=== PATIENT | male | born 1940 | race Caucasian/White ===

== ENCOUNTER 2017-08-16 13:30 | Inpatient (IN) | payer MEDICARE, OTHER ==
[2017-08-16 14:06] LABS: #Eosinphils 0.2 thou/uL (0.0-0.7); #Lymphocytes 1.4 thou/uL (1.20-3.40); #Monocytes 0.4 thou/uL (0.11-0.59); #Neutrophils 4.4 thou/uL (1.40-6.50); %Basophils 0.6 % (0.0-1.0); %Eosinophils 2.4 % (0.0-10.0); %Lymphocytes 22.5 % (21.0-51.0); %Monocytes 6.2 % (0.0-10.0); %Neutrophils 68.3 % (42.0-75.0); Hemoglobin 12.6 g/dL (14.0-18.0); Mean Corpuscular HGB CONC 33.5 g/dL (32.0-36.0); Mean Corpuscular Hemoglobin 30.9 pg (27.0-31.0); Platelet Count 165 thou/uL (130-400); RBC Distribution Width 12.1 % (11.5-14.5); Red Blood Cell (RBC) Count 4.08 mill/uL (4.70-6.10); White Blood Cell (WBC) Count 6.4 thou/uL (4.8-10.8)
--- NOTE | 2017-08-16 14:15 | RAD ---
AP VIEW CHEST: INDICATIONS: Chest pain. COMPARISON: None. FINDINGS: There is slight elevation of the right hemidiaphragm. The lungs are clear. No pleural effusion or p neumothorax is evident. The cardiomediastinal silhouette is normal. No acute osseous abnormality is evident. IMPRESSION: No acute cardiopulmonary abnormality. POS: [facility]
[2017-08-16 14:29] LABS: ALT (SGPT) 20 U/L (8-55); AST (SGOT) 27 U/L (5-34); Albumin 4.2 g/dL (3.4-4.8); Alkaline Phosphatase 59 U/L (40-150); Anion Gap 15 mmol/L (10-20); BUN (Urea Nitrogen) 18 mg/dL (8.4-25.7); Bilirubin, Total 0.7 mg/dL (0.2-1.2); CK (CPK) 374 U/L (30-200); Calc. Creatinine Clearance 0 mL/min (70-130); Calcium 10.3 mg/dL (7.8-10.44); Carbon Dioxide 22 mmol/L (23-31); Chloride 105 mmol/L (98-107); Estimated GFR-MDRD 67; Globulin 3.2 g/dL (2.4-3.5); Glucose 82 mg/dL (83-110); Potassium 3.7 mmol/L (3.5-5.1); Protein, Total 7.4 g/dL (5.8-8.1); Sodium 138 mmol/L (136-145)
[2017-08-16 14:33] LABS: CKMB 5.5 ng/mL (0-6.6); Troponin I 0.078 ng/mL (< 0.028)
[2017-08-16] MEDS ORDERED: Nitroglycerin 0.4 MG TAB (25 Tab Bottle) ONE (15:06)
[2017-08-16] MEDS ORDERED: Morphine 2 MG/ML SYRINGE ONE (15:55)
[2017-08-16] MEDS ORDERED: Lorazepam 2 MG/ML VIAL ONE (15:55)
[2017-08-16 18:04] LABS: Troponin I 0.405 ng/mL (< 0.028)
[2017-08-16] MEDS ORDERED: Enoxaparin Sodium 80 MG/0.8 ML SYRINGE ONE (18:41)
[2017-08-16] MEDS ORDERED: Ondansetron HCl/PF 4 MG/2 ML Vial IVP PRN (19:35)
[2017-08-16] MEDS ORDERED: hydrALAZINE 20 MG/ML VIAL SLOW IVP PRN (19:35)
[2017-08-16] MEDS ORDERED: Lorazepam 1 MG TAB PO PRN (19:35)
[2017-08-16] MEDS ORDERED: Zolpidem Tartrate 5 MG TAB PO PRN (19:35)
[2017-08-16] MEDS ORDERED: Nitroglycerin 0.4 MG TAB (25 Tab Bottle) PO PRN (19:35)
[2017-08-16] MEDS ORDERED: Acetaminophen 325 MG TAB PO PRN (19:35)
--- NOTE | 2017-08-16 20:50 | HP ---
CHIEF COMPLAINT: Chest pain. HISTORY OF PRESENT ILLNESS: This is a 77-year-old pleasant gentleman with a history of coronary elma ry disease status post 3 stents, last one put [address] Murillo [facility], because he had chest pain which started around 11:00 a.m. when he was trying to load some boxes into his car, he was in the process [place] a [place]. When this happened, his fr iends were helping him, brought him to the emergency room for further evaluation and treatment. The patient says that he had on and off chest pain, but it used to not last like this one. He was really concerned and hence, he came to the hospital for further evaluation and treatment. He was not asso ciated with any nausea, vomiting, shortness of breath, no radiation, no relieving factors, exacerbate d by activity of the patient's. PAST MEDICAL HISTORY: Significant for hypertension, hyperlipidemia, prostate cancer, recently diagno sed as going to go and start treatment pretty soon. PAST SURGICAL HISTORY: Three stents, hemorrhoid surgery in the past. PAST PSYCHIATRIC HISTORY: Anxiety. SOCIAL HISTORY: Does not smoke, drink or do recreational drugs. MEDICATIONS: Please see MAR include statin, Plavix, lisinopril, metoprolol, Flomax. ALLERGIES: SULFA. FAMILY HISTORY: Negative for diabetes and hypertension. REVIEW OF SYSTEMS: Significant for chest pain, otherwise no fever, no chills, no headache, no eye pa in, no hearing loss or latencies. No cough, no diarrhea, dysuria, or polyuria. No memory or mood ch anges noted. PHYSICAL EXAMINATION: VITAL SIGNS: Patient's blood pressure is 126/81, pulse is 78, afebrile, breathing comfortably on yvonne m air. GENERAL: Patient is lying in bed, in no apparent distress right now. HEENT: Atraumatic, normocephalic. Pupils equally round and reactive to light. Extraocular muscle m ovements intact. Mucous membranes moist. NECK: Supple. No JVD. CHEST: Breath sounds heard. No rales or rhonchi. HEART: S1, S2, no murmurs or gallops. ABDOMEN: Soft. EXTREMITIES: No cyanosis, clubbing, or edema. Distal pulses present. NEUROLOGIC: Alert, awake, oriented. No cranial deficits. No sensorimotor deficits. LABORATORY DATA: BNP is 114.5. Chest x-ray negative. Troponin I 0.078, creatinine is 1.07, potassi um is 3.7. WBC count is 6.4, hemoglobin is 12. Patient's EKG shows sinus tachy in the ER without any significant ST-T wave changes. ASSESSMENT AND PLAN: 1. Unstable angina. Patient has a history of coronary artery disease with 3 stents, we will put him on chest pain protocol. We will admit him to the hospital. We will put him on chest pain protocol and consult Dr. De La Cruz. We will follow Cardiology plan with respect to intervention. We will put him on aspirin, morphine for pain, and metoprolol. 2. Hypertension. Continue home medications and p.r.n. hydralazine. 3. Hyperlipidemia, stable. 4. Recently diagnosed prostate cancer. Outpatient followup with oncologist. 5. Sequential compression devices for deep venous thrombosis prophylaxis. I will work with Dr. Bennett helm and further caring for the patient.
[2017-08-16] MEDS: Metoprolol Tartrate 25 MG TAB PO SCH (21:13)
[2017-08-16] MEDS: Sodium Chloride 0.9% 1,000 ML IV SCH (21:13)
[2017-08-16] MEDS: HYDROcodone/Acetaminophen 5/325 mg Tablet PO PRN (21:13)
[2017-08-16] MEDS: Famotidine 20 MG TAB PO SCH (21:15)
[2017-08-16] MEDS: Docusate 100 MG CAP PO SCH (21:15)
[2017-08-16 21:37] LABS: Troponin I 0.507 ng/mL (< 0.028)
[2017-08-16 22:43] VITALS: BMI 25.3
[2017-08-17 05:59] LABS: Bilirubin Negative (Negative); Blood, Urine Negative (Negative); Clarity CLEAR (Clear); Glucose, Urine (Dipstick) Negative (Negative); Leukocyte Small (Negative); Nitrite Negative (Negative); Protein, Urine (Dipstick) Negative (Neg-Trace); Specific Gravity, Urine 1.022 (1.002-1.036)
[2017-08-17 06:01] LABS: Bacteria/HPF None Seen HPF (None Seen); Hyaline Casts/LPF 0-3 HYALINE CAST LPF (0-3 Hyaline); Pathc Cast-AUWi Flag 0.67 (0-2.49); Squamous Epithelial 0-3 HPF (0-3)
[2017-08-17 06:19] LABS: #Eosinphils 0.2 thou/uL (0.0-0.7); #Lymphocytes 2.1 thou/uL (1.20-3.40); #Monocytes 0.4 thou/uL (0.11-0.59); #Neutrophils 1.5 thou/uL (1.40-6.50); %Basophils 0.9 % (0.0-1.0); %Eosinophils 5.7 % (0.0-10.0); %Lymphocytes 48.4 % (21.0-51.0); %Monocytes 9.1 % (0.0-10.0); %Neutrophils 35.8 % (42.0-75.0); Mean Corpuscular HGB CONC 32.8 g/dL (32.0-36.0); Mean Corpuscular Hemoglobin 30.6 pg (27.0-31.0); Mean Corpuscular Volume 93.4 fl (80.0-94.0); Platelet Count 140 thou/uL (130-400); RBC Distribution Width 12.1 % (11.5-14.5); Red Blood Cell (RBC) Count 3.93 mill/uL (4.70-6.10); White Blood Cell (WBC) Count 4.3 thou/uL (4.8-10.8)
[2017-08-17 06:41] LABS: Anion Gap 12 mmol/L (10-20); BUN (Urea Nitrogen) 14 mg/dL (8.4-25.7); Calc. Creatinine Clearance 73 mL/min (70-130); Calcium 9.7 mg/dL (7.8-10.44); Carbon Dioxide 24 mmol/L (23-31); Cardiac Risk 3.9 (Less than 4.5); Chloride 107 mmol/L (98-107); Cholesterol 131 mg/dl (< 200 Desired); Estimated GFR-MDRD 82; Glucose 101 mg/dL (83-110); HDL Cholesterol 34 mg/dL (>60 Neg Risk); LDL Cholesterol, Calculated 76 mg/dL; Potassium 4.1 mmol/L (3.5-5.1); Sodium 139 mmol/L (136-145); Triglycerides 105 mg/dL (Less than 150)
[2017-08-17] MEDS: HYDROcodone/Acetaminophen 5/325 mg Tablet PO PRN (08:24)
[2017-08-17] MEDS: Famotidine 20 MG TAB PO SCH (08:24)
[2017-08-17] MEDS: Docusate 100 MG CAP PO SCH (08:24)
[2017-08-17] MEDS: Sodium Chloride 0.9% 1,000 ML IV SCH (10:54)
[2017-08-17] MEDS: Metoprolol Tartrate 25 MG TAB PO SCH (10:54)
[2017-08-17] MEDS ORDERED: Morphine 4 MG/ML VIAL SLOW IVP SCH (11:45)
[2017-08-17] MEDS ORDERED: Communication Order-Pharmacy FS SCH (12:15)
[2017-08-17] MEDS ORDERED: Sodium Chloride 0.9% 1,000 ML IV SCH ×2 (12:15→13:15)
--- NOTE | 2017-08-17 12:21 | CON ---
DATE OF CONSULTATION: 08/17/2017 REASON FOR CONSULTATION: Unstable angina. Please see Dr. Hamilton's full note for details. This has been discussed. Briefly, Mr. Garland is a pleasant 77-year-old gentleman with a history of coronary artery disease, status post stent placement x3 by Dr. Tom Murillo. He recently presented with acute onset of chest pain. This occurred during a stressful situation. His troponin was in the indeterminate range. He continues to have mild chest pain. PAST MEDICAL HISTORY: Has been reviewed. PHYSICAL EXAMINATION: VITAL SIGNS: Blood pressure 148/80, pulse 60, temperature 98.5. GENERAL: Patient is a pleasant male who is in no acute distress. The patient appears his stated age. NEUROLOGIC: The patient is alert and oriented times 3 with no focal neurologic deficits. HEENT: Sclerae without icterus. Mouth has moist mucous membranes with normal pallor. NECK: No JVD. Carotid upstroke brisk. No bruits bilaterally. LUNGS: Clear to auscultation with unlabored respirations. BACK: No scoliosis or kyphosis. CARDIAC: Regular rate and rhythm with normal S1 and S2. No S3 or S4 noted. No significant rubs, mur murs, thrills, or gallops noted throughout the precordium. PMI is not displaced. There is no parast ernal heave. ABDOMEN: Soft, nontender, nondistended. No peritoneal signs present. No hepatosplenomegaly. No abn ormal striae. EXTREMITIES: 2+ femoral and 2+ dorsalis pedis pulses. No cyanosis, clubbing, or edema. SKIN: No gross abnormalities. EKG normal sinus rhythm, normal EKG. LABORATORY: Hemoglobin 12. Peak troponin 0.507. IMPRESSION: Unstable angina. RECOMMENDATIONS: It is difficult to ascertain whether Mr. Garland during his stressful situation h ad demand ischemia from small vessel disease versus unstable plaque. I discussed options of angiogra phy versus stress testing. I discussed risks and benefits of both, he decided to proceed with armenta ry angiography. I discussed the procedure in full detail with Mr. Garland. The risks included, bu t are not limited to the following: , stroke, [place], need for emergency surgery, loss of limb, ble eding, and infection, as well as a reaction to the dye causing kidney failure and needing long-term d ialysis. I also discussed the risks of PCI to include all of the above including coronary dissection and perforation in addition to acute stent thrombosis and restenosis. All questions about the proce dure were answered. Given the above, the patient agreed to proceed with coronary angiography and pos sible PCI. There are no contraindications to coated stent placement. No bleeding issues or surgeries planned. He is compliant and no back injections. We will proceed with a drug-coated stent if needed. Further recommendations pending the above.
[2017-08-17 12:48] VITALS: TEMP 97.6
[2017-08-17] MEDS ORDERED: traMADol HCl 50 MG TAB PO PRN (13:07)
[2017-08-17] MEDS ORDERED: Acetaminophen/Codeine 30-300mg Tablet PO PRN ×2 (13:07)
[2017-08-17] MEDS ORDERED: Nitroglycerin 0.4 MG TAB (25 Tab Bottle) SL PRN (13:07)
[2017-08-17] MEDS ORDERED: Sodium Chloride 0.9% 200 ML IV SCH (13:15)
[2017-08-17 14:10] VITALS: BP 173/85
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
[2017-08-17] MEDS ORDERED: Iopamidol 370 76% 100 ML VIAL ONE (15:52)
[2017-08-17] MEDS ORDERED: Atorvastatin Calcium 40 MG TAB PO SCH (21:00)
--- NOTE | 2017-08-18 00:59 | DIS ---
DATE OF ADMISSION: 08/16/2017 DATE OF DISCHARGE: 08/17/2017 DISCHARGE DIAGNOSES: 1. Unstable angina, status post cardiac catheterization with no significant obstruction, medical man agement. 2. Hypertension, stable. 3. Hyperlipidemia, stable. 4. Prostate cancer, stable. DISCHARGE MEDICATIONS: Include all home medications except Lipitor dose has been increased to 40 mg p.o. daily and Imdur 30 mg p.o. daily. TUBE LASER OPERATOR ON THE CASE: Cardiology. BRIEF HOSPITAL COURSE: A 77-year-old pleasant gentleman came into the hospital with chest pain. Ple ase refer to my H&P for further details. The patient underwent cardiac catheterization which did not show any significant obstruction medical management was suggested by Cardiology, they decided to put the patient on Imdur. The patient is doing well right now. PHYSICAL EXAMINATION: VITAL SIGNS: At the time of discharge, his blood pressure was 144/67, pulse was 70. He was afebrile , breathing comfortably on room air. GENERAL: Patient is lying in bed in no apparent distress. HEENT: Atraumatic, normocephalic. Pupils equally round, react to light. Extraocular movements inta ct. Mucous membranes moist. NECK: Supple. No JVD. CHEST: Breath sounds heard. There are no rales or rhonchi. HEART: S1, S2 normal. No murmurs or gallops. ABDOMEN: Soft. EXTREMITIES: No cyanosis, clubbing or edema. Distal pulses present. NEUROLOGIC: Alert, awake, oriented. No cranial deficits. No sensorimotor deficits. DISCHARGE INSTRUCTIONS: The patient is right now medically stable to be discharged. He is asked to follow up with his own bridge maintainer in 2 weeks and PCP in 1 week. He is asked to come back to the em ergency room in case symptoms recur. Total time for this discharge took 35 minutes.
[2017-08-18] MEDS ORDERED: Tamsulosin HCl 0.4 MG CAP PO SCH (09:00)
[2017-08-18] MEDS ORDERED: Lisinopril 10 MG TAB PO SCH (09:00)
== END 2017-08-17 18:02 | disposition home or self-care (01) | DRG 287 ==
LOC: ERS 13:30 → ERHOLD 17:41 → 2SW 20:27 → OBSVTOIN 08-17 10:09
PROVIDERS: ADMIT Internal Medicine; ATTEND Internal Medicine
PROC: 4A023N7 Measurement of Cardiac Sampling and Pressure, Left Heart, Percutaneous Approach (ICD-10-PCS; principal; 2017-08-17)
PROC: B2111ZZ Fluoroscopy of Multiple Coronary Arteries using Low Osmolar Contrast (ICD-10-PCS; 2017-08-17)
DX: I25.110 Atherosclerotic heart disease of native coronary artery with unstable angina pectoris (principal); E78.5 Hyperlipidemia, unspecified; I10 Essential (primary) hypertension; Z95.5 Presence of coronary angioplasty implant and graft; Z85.46 Personal history of malignant neoplasm of prostate; F41.9 Anxiety disorder, unspecified; Z88.2 Allergy status to sulfonamides; I25.2 Old myocardial infarction; Z79.82 Long term (current) use of aspirin; Z79.01 Long term (current) use of anticoagulants
CPT/HCPCS: 36415; 71045; 76942; 80048; 80053; 80061; 81001; 82550; 82553; 83690; 83880; 84484; 85025; 85379; 93005; 93306; 93458; 94760; 96361; 96372; 96374; 96375; C1760; C1769; J1644; J1650; J2060; J2270

== ENCOUNTER 2019-04-20 11:49 | Observation (INO) | payer MEDICARE ==
[2019-04-20] MEDS ORDERED: ISOVUE-370 76%-LOCM 1 ML ONE (12:35)
[2019-04-20 12:36] LABS: Hemoglobin 11.8 g/dL (14.0-18.0); Mean Corpuscular HGB CONC 34.1 g/dL (32.0-36.0); Mean Corpuscular Hemoglobin 30.8 pg (27.0-31.0); Mean Corpuscular Volume 90.2 fL (78.0-98.0); RBC Distribution Width 12.1 % (11.5-14.5); Red Blood Cell (RBC) Count 3.83 mill/uL (4.70-6.10); White Blood Cell (WBC) Count 5.1 thou/uL (4.8-10.8)
[2019-04-20] MEDS ORDERED: Ondansetron PF 4 MG/2 ML Vial ONE (12:38)
[2019-04-20] MEDS ORDERED: Ketorolac Tromethamine 30 MG/ML VIAL ONE (12:38)
[2019-04-20 12:51] LABS: ALT (SGPT) 13 U/L (8-55); AST (SGOT) 19 U/L (5-34); Albumin 4.1 g/dL (3.4-4.8); Alkaline Phosphatase 75 U/L (40-150); Anion Gap 12 mmol/L (10-20); BUN (Urea Nitrogen) 16 mg/dL (8.4-25.7); Bilirubin, Total 0.4 mg/dL (0.2-1.2); Calc. Creatinine Clearance 0 mL/min (70-130); Calcium 9.6 mg/dL (7.8-10.44); Carbon Dioxide 21 mmol/L (23-31); Chloride 107 mmol/L (98-107); Estimated GFR-MDRD 58; Globulin 2.7 g/dL (2.4-3.5); Glucose 134 mg/dL (83-110); Lipase 12 U/L (8-78); Potassium 4.4 mmol/L (3.5-5.1); Protein, Total 6.8 g/dL (5.8-8.1); Sodium 136 mmol/L (136-145)
[2019-04-20 13:13] LABS: #Eosinphils 0.1 thou/uL (0.0-0.7); #Lymphocytes 0.6 thou/uL (1.20-3.40); #Monocytes 0.2 thou/uL (0.11-0.59); #Neutrophils 4.2 thou/uL (1.40-6.50); %Basophils 0.1 % (0.0-1.0); %Eosinophils 1.3 % (0.0-10.0); %Lymphocytes 12.3 % (21.0-51.0); %Monocytes 4.2 % (0.0-10.0); %Neutrophils 82.2 % (42.0-75.0); Elliptocytes SLIGHT = 2-5 cells (100X) (0-1/hpf); MDiff Complete? YES; Mean Platelet Volume 7.8 fL (7.4-10.4); Platelet Count 117 thou/uL (130-400); Platelet Morphology Comment Appears Decreased
--- NOTE | 2019-04-20 13:13 | RAD ---
1 VIEW CHEST: Date: 04/20/19 COMPARISON: 08/16/17. HISTORY: Chills and back pain. Nausea. FINDINGS: Normal cardiac silhouette. Pulmonary vessels and hilum are normal. Costophrenic angles are clear. No consolidation or mass. No pneumothorax or osseous abnormalities. Coronary artery stent is noted. IMPRESSION: No acute cardiopulmonary process. POS: [facility]
[2019-04-20] MEDS ORDERED: cefTRIAXone\\ROCEPHIN 2 GM VIAL ONE (13:37)
[2019-04-20 13:56] LABS: Bilirubin Negative (Negative); Blood, Urine 2+ (Negative); Clarity Clear (Clear); Glucose, Urine (Dipstick) Normal (Negative); Leukocyte Negative Leu/uL (Negative); Nitrite Negative (Negative); Protein, Urine (Dipstick) Negative (Neg-Trace); RBC/HPF 21-50 HPF (0-3); Squamous Epithelial 0-3 HPF (0-3); Urobilinogen Normal mg/dL (Less than 2); WBC/HPF 0-3 HPF (0-3)
--- NOTE | 2019-04-20 14:03 | CT ---
ABDOMEN CT WITH CONTRAST PELVIC CT WITH CONTRAST: HISTORY: Acute onset fever and chills. COMPARISON: None. FINDINGS: Interstitial and alveolar opacities in the right lower lobe. Correlate for infiltrate. Normal heart size. No significant pericardial effusion. There are coronary artery calcifications. No significa nt pericardial fluid. The visualized aorta has a normal caliber. No periaortic fat stranding. Portal vein was patent. Gallbladder is unremarkable. Liver, spleen, pancreas, and adrenal glands have appropriate attenuation and enhancement. No gastrohepatic, retrocrural, or periportal lymphadenopathy. Symmetric enhancement of the kidneys. Bilaterally, no obstructive uropathy. No mesenteric mass, lymphadenopathy, free air, or free fluid. Limited evaluation of the alimentary canal by the lack of oral contrast. There is a hiatal hernia. Gastric mucosa, duodenum, and multiple normal caliber small bowel loops are unremarkable. Ileocecal junction is unremarkable. Appendix is not appreciated. Nevertheless, no inflammation of the cecal a pex. Colon is decompressed. Occasional diverticulum. No diverticulitis. CT PELVIS: Decompressed urinary bladder limits evaluation. There does appear to be urinary bladder mucosal prom inence with perivesicular stranding. Correlate for cystitis. Mildly prominent seminal vesicles. Co rrelate for inflammation of the seminal vesicles. Prostate gland does not appear to be significantly enlarged. No pelvis mass, lymphadenopathy, free air, or free fluid. There are no lytic or blastic lesions in the osseous structures. Vacuum disk phenomenon at L4-L5 and L5-S1. IMPRESSION: 1. Possible cystitis along with inflammation or infection of the seminal vesicles. 2. No acute abnormality within the abdomen. 3. Right lower lobe pneumonia/pneumonitis. POS: [facility]
[2019-04-20 14:06] LABS: Bacteria/HPF Rare-Few HPF (None Seen); Yeast-Budding 1+ HPF (None Seen)
[2019-04-20] MEDS ORDERED: Sodium Chloride 0.9% 0 ML ONE (14:27)
[2019-04-20] MEDS ORDERED: Azithromycin 500 MG VIAL ONE (14:27)
[2019-04-20 16:41] VITALS: BMI 25.3
[2019-04-20] MEDS ORDERED: Ondansetron PF 4 MG/2 ML Vial IVP PRN (16:58)
[2019-04-20] MEDS ORDERED: Sodium Chloride 0.9% 1,000 ML IV SCH (16:58)
[2019-04-20] MEDS ORDERED: Acetaminophen 325 MG TAB PO PRN (16:58)
[2019-04-20] MEDS ORDERED: Ondansetron ODT 4 MG TAB SL PRN (16:58)
[2019-04-20] MEDS ORDERED: Ibuprofen 200 MG TAB PO PRN (17:49)
[2019-04-20] MEDS ORDERED: Diabetic Tussin 200 MG/10 ML UDCUP PO PRN (17:49)
[2019-04-20] MEDS ORDERED: diphenhydrAMINE 25 MG CAP PO PRN (17:49)
[2019-04-20] MEDS: Sodium Chloride 0.9% 1,000 ML IV SCH ×2 (18:04→23:56)
[2019-04-20] MEDS ORDERED: Nitroglycerin 0.4 MG TAB (25 Tab Bottle) SL PRN (18:19)
[2019-04-20] MEDS: Metoprolol Tartrate 50 MG TAB PO SCH (20:20)
[2019-04-20] MEDS: traZODone HCl 50 MG TAB PO SCH (20:20)
--- NOTE | 2019-04-21 00:27 | HP ---
CHIEF COMPLAINT: Fever, shaking chills, nausea and vomiting. PRIMARY CARE PHYSICIAN: Dr. Shelton Daniel. HISTORY OF PRESENT ILLNESS: The patient is a very pleasant 78-year-old male with past medical history noted of coronary artery disease status post coronary artery stenting x3 in the past, prostate cancer, status post radiation in 2018, hypertension, hyperlipidemia, who presented to the hospital today via private vehicle with the above complaints that started yesterday. The patient states that yesterday morning he woke up and felt like he was in his usual state of health. However, he felt more rundown when he was out running his errands than normal. Last night around 9:00 p.m., the patient began having fever, which was associated with all-over body aches as well as shaking chills and intermittent diaphoresis. The patient also reports cough, which was nonproductive. The patient suffered with his symptoms throughout the night, which did continue to worsen. This morning, he had some overall weakness, which made it hard to ambulate as well as having 2 episodes of nausea and resulting emesis. Because of his worsening symptoms, family members brought him to the emergency department for further workup and treatment. On arrival, chest x-ray showed no acute cardiopulmonary abnormality; however, CT scan of the abdomen and pelvis did reveal possible cystitis along with inflammation or infection of the seminal vesicles and right lower lobe pneumonia/pneumonitis. The patient's temperature was 101.3 on arrival. He was mildly tachycardic with pulse of 94 as well. Lab work was largely unremarkable. The patient had no white count. EKG showed normal sinus rhythm, no acute ST or T-wave changes. In the emergency department, the patient was given IV fluid resuscitation along with Rocephin and azithromycin IV. The patient was given Tylenol. At the time of my interview, the patient feels much improved. His presenting symptoms are largely resolved. REVIEW OF SYSTEMS: A 12-point review of systems was performed. He does have some urinary frequency, although this seems stable since his diagnosis of prostate cancer and radiation treatment. He has some chronic low back pain and hip pain secondary to osteoarthritis. Otherwise, 12-point review of systems was negative. ALLERGIES: SULFA DRUGS. HOME MEDICATIONS: 1. Atorvastatin 40 mg tablet one tablet daily. 2. Aspirin 81 mg daily. 3. Plavix 75 mg daily. 4. Metoprolol tartrate 50 mg tablet one tablet p.o. b.i.d. 5. Pantoprazole 40 mg tablet daily. 6. Tamsulosin 0.4 mg tablet daily. 7. Trazodone 100 mg p.o. at bedtime. 8. Latanoprost eye drops each eye daily. 9. Sublingual nitroglycerin 0.4 mg p.r.n. chest pain. PAST MEDICAL HISTORY/SURGICAL HISTORY: 1. Coronary artery disease status post stenting x3 followed by Dr. Murillo. 2. Hypertension. 3. Hyperlipidemia. 4. Prostate cancer, status post radiation treatment. 5. Hemorrhoids status post hemorrhoidectomy. 6. Gastroesophageal reflux disease. SOCIAL HISTORY: The patient denies any alcohol or drug use. The patient has had no smoking history in his life. He is close to his brother and cousins who live nearby. 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 The patient remains very active and does all of his own yard work. CODE STATUS: Full code. PHYSICAL EXAMINATION: VITAL SIGNS: Blood pressure 140/61, pulse is 73, O2 saturation is 97% on room air, temperature 98.2. GENERAL: This patient is an elderly male, resting in bed, in no acute distress. HEENT: Head is atraumatic and normocephalic. Mucous membranes are moist. NECK: Trachea is midline. No JVD. CV: S1 and S2. Regular rate and rhythm. No appreciable murmurs, rubs, or gallops. LUNG: Regular respiratory rate and pattern, overall clear. ABDOMEN: Positive bowel sounds. Nontender. EXTREMITIES: No edema. NEUROLOGIC: Cranial nerves 2 through 12 are grossly intact. The patient is nonfocal. LABORATORY DATA: White blood cell count 5.1, hemoglobin 11.8, hematocrit 34.6, platelets are 117. Sodium 136, potassium 4.4, BUN 16, creatinine 1.21. AST 19, ALT 13, alkaline phosphatase 75. Troponin is negative. Urinalysis positive for 2+ blood, rare bacteria and 1+ yeast. ASSESSMENT: 1. Sepsis, community-acquired pneumonia versus cystitis likely source; patient is symptomatically already much improved with IV fluids, antibiotics, and antipyretics. 2. Coronary artery disease status post stenting x3 in the past, stable. 3. Hypertension. 4. Hyperlipidemia. 5. History of prostate cancer status post radiation. 6. Mild microcytic anemia, hemoglobin stable when compared to past visits. PLAN: At this time, we will continue IV antibiotics, IV fluid resuscitation, and supportive care with antipyretics and antiemetics. The patient is already much improved, and if he continues to do well, he might possibly be discharged tomorrow with oral antibiotics. We will continue the patient's home medications including his aspirin, Plavix, and antihypertensive regimen. DVT and GI prophylaxis have been ordered. We will repeat the patient's blood work in the morning. Blood and urine cultures are pending. Job ID: [id number]
[2019-04-21 05:35] LABS: #Eosinphils 0.2 thou/uL (0.0-0.7); #Lymphocytes 1.3 thou/uL (1.20-3.40); #Monocytes 0.4 thou/uL (0.11-0.59); %Eosinophils 2.4 % (0.0-10.0); %Lymphocytes 18.3 % (21.0-51.0); %Monocytes 6.4 % (0.0-10.0); %Neutrophils 72.9 % (42.0-75.0); Hemoglobin 9.8 g/dL (14.0-18.0); Mean Corpuscular HGB CONC 34.6 g/dL (32.0-36.0); Mean Corpuscular Hemoglobin 31.6 pg (27.0-31.0); Mean Corpuscular Volume 91.5 fL (78.0-98.0); Mean Platelet Volume 8.4 fL (7.4-10.4); Platelet Count 102 thou/uL (130-400); RBC Distribution Width 12.1 % (11.5-14.5); White Blood Cell (WBC) Count 6.9 thou/uL (4.8-10.8)
[2019-04-21 05:46] LABS: Anion Gap 7 mmol/L (10-20); BUN (Urea Nitrogen) 16 mg/dL (8.4-25.7); Calc. Creatinine Clearance 57 mL/min (70-130); Calcium 8.7 mg/dL (7.8-10.44); Carbon Dioxide 24 mmol/L (23-31); Chloride 111 mmol/L (98-107); Estimated GFR-MDRD 63; Glucose 99 mg/dL (83-110); Potassium 3.8 mmol/L (3.5-5.1); Sodium 138 mmol/L (136-145)
[2019-04-21] MEDS: Tamsulosin HCl 0.4 MG CAP PO SCH ×2 (09:35→10:23)
[2019-04-21] MEDS: Clopidogrel Bisulfate 75 MG TAB PO SCH (09:35)
[2019-04-21] MEDS: Atorvastatin Calcium 40 MG TAB PO SCH (09:35)
[2019-04-21] MEDS: Metoprolol Tartrate 50 MG TAB PO SCH ×2 (09:35→20:33)
[2019-04-21] MEDS: Aspirin 81 mg Enteric Coated Tablet PO SCH (09:35)
[2019-04-21] MEDS: Sodium Chloride 0.9% 1,000 ML IV SCH ×2 (09:37→14:18)
[2019-04-21] MEDS: Acetaminophen 325 MG TAB PO PRN (12:01)
[2019-04-21] MEDS ORDERED: cefTRIAXone\\ROCEPHIN 1 GM in Sodium Chloride 0.9% 100 ML IVPB SCH (13:00)
[2019-04-21] MEDS ORDERED: Azithromycin 500 MG in Sodium Chloride 0.9% 250 ML 250 ML IVPB SCH (14:00)
[2019-04-21] MEDS ORDERED: Ondansetron ODT 4 MG TAB PO PRN (15:34)
[2019-04-21] MEDS ORDERED: Ondansetron PF 4 MG/2 ML Vial IVP PRN (15:34)
[2019-04-21] MEDS: traZODone HCl 50 MG TAB PO SCH (20:33)
--- NOTE | 2019-04-21 20:43 | PDOC.HOSPP ---
- Subjective Encounter Date: 04/21/19 Encounter Time: 13:30 Subjective: Patient seen and examined for Pneumonia. Nausea with Productive cough +. Feel gen weak. No other complaints. No overnight events - Objective Vital Signs & Weight: Vital Signs (12 hours) Temp Pulse Resp BP Pulse Ox 04/21/19 18:54 97.7 F 65 16 135/63 97 04/21/19 15:40 98.6 F 59 L 16 127/66 98 04/21/19 12:02 98.4 F 55 L 20 138/65 98 Weight Weight 162 lb I&O: 04/20/19 04/21/19 04/22/19 06:59 06:59 06:59 Intake Total 1706 1969 Output Total 950 600 Balance 756 1369 Result Diagrams: 04/21/19 04:09 04/21/19 04:09 Radiology Reviewed by me: Yes (CT/CXR - Pneumonia) Hospitalist ROS - Review of Systems Cardiovascular: denies: chest pain, palpitations, orthopnea, paroxysmal noc. dyspnea, edema, light headedness, other Gastrointestinal: denies: nausea, vomiting, abdominal pain, diarrhea, constipation, melena, hematochezia, other - Medication Medications: Active Medications Generic Name Dose Route Start Last Admin Trade Name Freq PRN Reason Stop Dose Admin Acetaminophen 650 mg 04/21/19 11:20 04/21/19 12:01 Tylenol PO 650 mg Q4H PRN Administration Headache/Fever or Mild Pain Aspirin 81 mg 04/21/19 09:00 04/21/19 09:35 Ecotrin PO 81 mg DAILY HALLE Administration Atorvastatin Calcium 40 mg 04/21/19 09:00 04/21/19 09:35 Lipitor PO 40 mg DAILY HALLE Administration Clopidogrel Bisulfate 75 mg 04/21/19 09:00 04/21/19 09:35 Plavix PO 75 mg DAILY HALLE Administration Azithromycin 500 mg/ Sodium 250 mls @ 250 mls/hr 04/21/19 14:00 04/21/19 14: 17 Chloride IVPB 250 mls Q24HR HALLE Administration Ceftriaxone Sodium 1 gm/ 100 mls @ 200 mls/hr 04/21/19 13:00 04/21/19 12:01 Sodium Chloride IVPB 100 mls Q24HR HALLE Administration Sodium Chloride 1,000 mls @ 50 mls/hr 04/21/19 13:02 04/21/19 14:18 Normal Saline 0.9% IV Not Given .Q20H HALLE Metoprolol Tartrate 50 mg 04/20/19 21:00 04/21/19 20:33 Lopressor PO 50 mg BID HALLE Administration Ondansetron HCl 4 mg 04/21/19 15:34 04/21/19 15:56 Zofran Odt PO 4 mg Q6H PRN Administration Nausea/Vomiting Pantoprazole Sodium 40 mg 04/21/19 09:00 04/21/19 09:35 Protonix PO 40 mg DAILY HALLE Administration Tamsulosin HCl 0.4 mg 04/21/19 21:00 04/21/19 20:33 Flomax PO 0.4 mg HS HALLE Administration Trazodone HCl 100 mg 04/20/19 21:00 04/21/19 20:33 Desyrel PO 100 mg HS HALLE Administration - Exam General Appearance: ill appearing Neck: supple, no JVD Heart: RRR, no murmur, no gallops, no rubs Respiratory: no wheezes, no ronchi, rales (right base) Respiratory - other findings: Symmetrical Gastrointestinal: soft, non-tender, non-distended, normal bowel sounds Extremities: no edema Neurological: no new deficit Psychiatric: normal affect, A&O x 3 Hosp A/P - Plan DVT proph w/SCDs IMPRESSION: 1. Gen weakness/Sepsis due to CAP - ?Pneumococcus 2. Hematuria/bladder wall thickening 3. HTN 4. HLD 5. h/p Prostate CA 6. CKD 2 PLAN: Cont Ceftriaxone/Azithromycin F/u with Urology as outpt Ambulate DC later today or in AM if stable Cont other meds as above Full code. DPOA - self/family
[2019-04-21] MEDS ORDERED: Tamsulosin HCl 0.4 MG CAP PO SCH (21:00)
[2019-04-22] MEDS: Acetaminophen 325 MG TAB PO PRN (01:30)
[2019-04-22] MEDS: Sodium Chloride 0.9% 1,000 ML IV SCH (01:33)
[2019-04-22 04:51] LABS: #Eosinphils 0.2 thou/uL (0.0-0.7); #Lymphocytes 1.2 thou/uL (1.20-3.40); #Monocytes 0.3 thou/uL (0.11-0.59); #Neutrophils 3.2 thou/uL (1.40-6.50); %Basophils 0.3 % (0.0-1.0); %Eosinophils 4.9 % (0.0-10.0); %Lymphocytes 23.4 % (21.0-51.0); %Monocytes 6.7 % (0.0-10.0); %Neutrophils 64.7 % (42.0-75.0); Mean Corpuscular Hemoglobin 31.3 pg (27.0-31.0); Mean Platelet Volume 8.1 fL (7.4-10.4); Platelet Count 102 thou/uL (130-400); RBC Distribution Width 12.1 % (11.5-14.5); Red Blood Cell (RBC) Count 3.19 mill/uL (4.70-6.10); White Blood Cell (WBC) Count 4.9 thou/uL (4.8-10.8)
[2019-04-22 08:19] VITALS: TEMP 98.3
[2019-04-22] MEDS: Atorvastatin Calcium 40 MG TAB PO SCH (08:33)
[2019-04-22] MEDS: Aspirin 81 mg Enteric Coated Tablet PO SCH (08:33)
[2019-04-22] MEDS: Metoprolol Tartrate 50 MG TAB PO SCH (08:34)
[2019-04-22] MEDS: Clopidogrel Bisulfate 75 MG TAB PO SCH (08:34)
[2019-04-22] MEDS ORDERED: Saccharomyces boulardii 250 MG CAP PO SCH (09:00)
[2019-04-22] MEDS ORDERED: Cefdinir 300 MG CAP PO SCH ×2 (11:30→21:00)
[2019-04-22 12:40] VITALS: BP 124/58
--- NOTE | 2019-04-23 01:15 | DIS ---
DATE OF ADMISSION: 04/20/2019 DATE OF DISCHARGE: 04/22/2019 PRIMARY CARE PROVIDER: Dr. Shelton Daniel. DISCHARGE DIAGNOSES: 1. Sepsis. 2. Community-acquired pneumonia. 3. Cystitis. CONDITION OF PATIENT ON THE DAY OF DISCHARGE: Stable. I assessed Mr. Garland on the day of discharge. He denies any chest pain or shortness of breath. Vital signs are stable. S1 and S2 are heard, regular. Lungs are clear to auscultation bilaterally. DISCHARGE MEDICATIONS: In addition to his pre-admission home medications as dictated by Ms. Lay in history and physical note dated April 20, 2019, he is being discharged on cefdinir 300 mg 2 times a day for 1 week. HOSPITAL COURSE: Mr. Garland is a pleasant 78-year-old gentleman, who was admitted to [facility] on April 20, 2019 for sepsis secondary to community-acquired pneumonia and cystitis. He improved with intravenous antibiotics. Final urine culture was negative. At the time of this dictation, preliminary blood cultures are negative. He has been advised to follow up with his primary care provider for final blood culture results. He improved clinically. He is being discharged home on oral antibiotics. FOLLOWUP APPOINTMENTS: The patient is advised to follow up with primary care provider in 3 days and with his Urologist in 7 days. Many thanks for allowing me to participate in your patient's care. Please feel free to contact me with any questions or concerns. DISCHARGE DESTINATION: Home. Job ID: [id number]
== END 2019-04-22 13:06 | disposition home or self-care (01) ==
LOC: ERS 11:49 → 2SW 15:02
PROVIDERS: ADMIT Internal Medicine; ATTEND Internal Medicine
DX: J18.9 Pneumonia, unspecified organism (principal); N30.90 Cystitis, unspecified without hematuria; A41.9 Sepsis, unspecified organism; I10 Essential (primary) hypertension; I25.10 Atherosclerotic heart disease of native coronary artery without angina pectoris; E78.5 Hyperlipidemia, unspecified; D50.9 Iron deficiency anemia, unspecified; F41.9 Anxiety disorder, unspecified; I25.2 Old myocardial infarction; Z79.82 Long term (current) use of aspirin; Z88.2 Allergy status to sulfonamides; Z95.5 Presence of coronary angioplasty implant and graft
CPT/HCPCS: 71045; 74177; 80048; 80053; 83690; 84484; 85025 ×3; 87040; 87086; 87804 ×2; 93005; 96361 ×4; 96365; 96366; 96367; 96375; 97139 ×2; 99285; G0378 ×4; 36415; 81003; 81015; J0456; J0696; J1885; J2405; J3490; J7050; Q0162; Q9966

== ENCOUNTER 2019-05-15 13:37 | Inpatient (IN) | payer MEDICARE ==
[2019-05-15] MEDS ORDERED: ISOVUE-370 76%-LOCM 1 ML ONE (13:47)
[2019-05-15] MEDS ORDERED: Nitroglycerin 2% Ointment 1 INCH/1 GM Packet ONE (14:16)
[2019-05-15 14:31] LABS: #Eosinphils 0.2 thou/uL (0.0-0.7); #Lymphocytes 1.7 thou/uL (1.20-3.40); #Monocytes 0.5 thou/uL (0.11-0.59); #Neutrophils 3.8 thou/uL (1.40-6.50); %Basophils 0.8 % (0.0-1.0); %Eosinophils 3.7 % (0.0-10.0); %Lymphocytes 27.3 % (21.0-51.0); %Monocytes 8.1 % (0.0-10.0); %Neutrophils 60.2 % (42.0-75.0); Hemoglobin 12.8 g/dL (14.0-18.0); Mean Corpuscular HGB CONC 33.8 g/dL (32.0-36.0); Mean Corpuscular Hemoglobin 30.1 pg (27.0-31.0); Mean Corpuscular Volume 88.8 fL (78.0-98.0); Mean Platelet Volume 7.8 fL (7.4-10.4); Platelet Count 150 thou/uL (130-400); RBC Distribution Width 12.3 % (11.5-14.5); Red Blood Cell (RBC) Count 4.25 mill/uL (4.70-6.10); White Blood Cell (WBC) Count 6.3 thou/uL (4.8-10.8)
--- NOTE | 2019-05-15 14:42 | RAD ---
XR Chest Pa Lat STANDARD HISTORY: Chest pain and left arm pain. COMPARISON: None. FINDINGS: Heart size and mediastinum are within normal limits. There are atherosclerotic changes of t he aorta. The lungs are clear of infiltrates. No signs of failure. Arthritic changes of the spine are present. IMPRESSION: No active intrathoracic disease.
[2019-05-15 14:53] LABS: ALT (SGPT) 15 U/L (8-55); AST (SGOT) 19 U/L (5-34); Albumin 4.2 g/dL (3.4-4.8); Alkaline Phosphatase 70 U/L (40-110); Anion Gap 14 mmol/L (10-20); BUN (Urea Nitrogen) 19 mg/dL (8.4-25.7); Bilirubin, Total 0.6 mg/dL (0.2-1.2); CK (CPK) 80 U/L (30-200); Calc. Creatinine Clearance 0 mL/min (70-130); Calcium 10.2 mg/dL (7.8-10.44); Carbon Dioxide 18 mmol/L (23-31); Chloride 107 mmol/L (98-107); Estimated GFR-MDRD 48; Globulin 3.3 g/dL (2.4-3.5); Glucose 112 mg/dL (83-110); Potassium 4.4 mmol/L (3.5-5.1); Protein, Total 7.5 g/dL (5.8-8.1); Sodium 135 mmol/L (136-145)
--- NOTE | 2019-05-15 15:50 | CT ---
EXAM: CT angiogram chest and abdomen with IV contrast and 3-D reconstructions PROVIDED CLINICAL HISTORY: Constant chest pain. Patient states midsternal chest pain radiates down into left arm and mid back. A ssociated shortness of breath. COMPARISON: CT abdomen on 04/20/2019 FINDINGS: The thoracic and abdominal aorta are normal in caliber without evidence of an aortic dissection. Ther e is a normal arrangement of the great vessels at the aortic arch which are patent. The celiac artery is downgoing likely due to arcuate ligament but does appear patent. The superior mesenteric an d inferior mesenteric arteries are patent. There are 3 patent left renal arteries with single patent right renal artery. The common iliac arteries are patent bilaterally with minimal vascular audrey cifications in the visualized proximal iliac arteries. Coronary artery calcifications are present. Dependent atelectasis is present on the right and to a much lesser extent at the left lung base. Few tiny pleural-based nodular densities are seen in the left lower lobe which are nonspecific. No mass, consolidation, or pleural fluid is seen. Liver appears to be diminished in attenuation. This is difficult to further evaluate without precontr ast imaging, but findings are suggestive of mild fatty infiltration. Stable subcentimeter hypodense lesion is seen in the superior pole right kidney statistically most li john representing a cyst. The spleen, pancreas, bilateral adrenal glands, and left kidney demonstrate a normal CT appearance. Again noted is a hiatal hernia with the fundus of stomach above the level of the hemidiaphragms. No mediastinal or hilar lymphadenopathy is seen. No free fluid, fluid collection, or lymphadenopathy is seen in the abdomen. Mild degenerative changes are seen in the thoracic and lumbar spine. There are minimal compression fr actures of the involving the superior endplates of the T2 and T3 vertebral bodies of indeterminate age. There are degenerative changes seen in the lower lumbar spine greatest at the L5-S1 level. Findi ngs were similar to the prior exam. There is suggestion of a fracture involving the inferior anterior endplate of the L5 vertebral body, but this did have a similar appearance to the prior exam. A few colonic diverticula are seen. Loops of small bowel are normal in caliber. IMPRESSION: 1. Thoracic and abdominal aorta are normal in caliber without evidence of an aortic dissection. 2. Coronary artery calcifications. 3. Mild fatty infiltration liver. 4. Hiatal hernia. 5. Subcentimeter hypodense lesion superior pole right kidney statistically likely representing a cyst . 6. Indeterminate age mild compression fractures involving superior endplates of the T2 and T3 vertebr al bodies with severe degenerative changes involving the L5-S1 level with questionable fracture involving the inferior endplate of the L5 vertebral body, but a similar finding was seen on the prior exam
[2019-05-15] MEDS ORDERED: Acetaminophen 325 MG TAB ONE (16:06)
[2019-05-15 19:13] LABS: Troponin I 0.263 ng/mL (< 0.028)
[2019-05-15] MEDS ORDERED: Aspirin Chewable 81 MG TAB ONE ×2 (21:01→21:03)
[2019-05-15] MEDS ORDERED: Ondansetron PF 4 MG/2 ML Vial IVP PRN (21:33)
[2019-05-15] MEDS ORDERED: Ondansetron ODT 4 MG TAB PO PRN (21:33)
[2019-05-15] MEDS ORDERED: Morphine 2 MG/ML SYRINGE SLOW IVP PRN (21:33)
[2019-05-15 21:37] VITALS: BMI 25.0
[2019-05-15] MEDS: Metoprolol Tartrate 50 MG TAB PO SCH (21:44)
[2019-05-15] MEDS: Nitroglycerin 2% Ointment 1 INCH/1 GM Packet TOP SCH (21:46)
[2019-05-15 21:51] LABS: Troponin I 0.388 ng/mL (< 0.028)
[2019-05-15] MEDS ORDERED: Enoxaparin Sodium 80 MG/0.8 ML SYRINGE SC SCH (22:30)
[2019-05-16] MEDS: traZODone HCl 50 MG TAB PO PRN (00:15)
[2019-05-16] MEDS: Nitroglycerin 2% Ointment 1 INCH/1 GM Packet TOP SCH ×3 (05:55→20:18)
[2019-05-16 06:13] LABS: #Eosinphils 0.3 thou/uL (0.0-0.7); #Lymphocytes 1.4 thou/uL (1.20-3.40); #Monocytes 0.5 thou/uL (0.11-0.59); #Neutrophils 1.7 thou/uL (1.40-6.50); %Basophils 0.7 % (0.0-1.0); %Lymphocytes 36.4 % (21.0-51.0); %Monocytes 11.8 % (0.0-10.0); %Neutrophils 44.2 % (42.0-75.0); Hemoglobin 11.8 g/dL (14.0-18.0); Mean Corpuscular HGB CONC 33.8 g/dL (32.0-36.0); Mean Corpuscular Hemoglobin 30.7 pg (27.0-31.0); Mean Corpuscular Volume 90.8 fL (78.0-98.0); Mean Platelet Volume 7.9 fL (7.4-10.4); Platelet Count 136 thou/uL (130-400); RBC Distribution Width 12.3 % (11.5-14.5); Red Blood Cell (RBC) Count 3.85 mill/uL (4.70-6.10); White Blood Cell (WBC) Count 3.9 thou/uL (4.8-10.8)
[2019-05-16 06:32] LABS: Anion Gap 13 mmol/L (10-20); BUN (Urea Nitrogen) 20 mg/dL (8.4-25.7); Calc. Creatinine Clearance 51 mL/min (70-130); Calcium 9.6 mg/dL (7.8-10.44); Carbon Dioxide 21 mmol/L (23-31); Cardiac Risk 4.7 (Less than 4.5); Chloride 106 mmol/L (98-107); Cholesterol 132 mg/dl (< 200 Desired); Estimated GFR-MDRD 57; Glucose 121 mg/dL (83-110); HDL Cholesterol 28 mg/dL (>60 Neg Risk); LDL Cholesterol, Calculated 84 mg/dL; Potassium 4.2 mmol/L (3.5-5.1); Sodium 136 mmol/L (136-145); Triglycerides 102 mg/dL (Less than 150)
--- NOTE | 2019-05-16 07:23 | HP ---
PRIMARY CARE PHYSICIAN: Dr. Daniel. CHIEF COMPLAINT: Chest pain. HISTORY OF PRESENT ILLNESS: Mr. Garland is a pleasant 73-year-old gentleman who presents to the emergency room complaining of chest pain. He says that it started while he was shopping at [employer]. He says he felt something coming on. Then during the shopping trip, he started having severe pain in the center of his chest. He says it radiated to the left arm and into his back. He says it was "excruciating" and rated it about 10/10. He considered stopping shopping, but he was able to make it through. He drove home, but says the pain got even worse. He was going to try to go to his apartment and where his brother was as well, but he could not even make it upstairs, he had to sit outside on a bench and called his brother from outside. His brother called their cousin who called EMS to have him brought to the hospital. He says the pain continued until he reached the emergency room. A Nitroderm patch was placed and he started having relief of his symptoms. He is being admitted for further evaluation. The patient says the pain felt very similar to when he had a heart attack about 4 or 5 years ago and he thought "he was getting ready to leave this place." He denies having any leg pain or leg swelling. He does note some palpitations and occasional dizziness when he stands up and some nausea with these symptoms, but otherwise he had no symptoms. REVIEW OF SYSTEMS: CONSTITUTIONAL: There have been no fevers or chills. No night sweats. No weight loss. HEENT: He denies any headache. He has some occasional dizziness with standing. No sore throat. No rhinorrhea or neck pain. No adenopathy. PULMONARY: No hemoptysis. No cough. No wheezing. CARDIOVASCULAR: As per history of present illness. There has been no PND, no orthopnea, no lower extremity edema. GASTROINTESTINAL: He has had some nausea, but no vomiting. No change in bowels. No hematemesis. No melena. No hematochezia. GENITOURINARY: No urinary frequency or hematuria. No hesitancy. NEUROLOGIC: No focal weakness or numbness. No seizures. MUSCULOSKELETAL: No muscle pains, weakness, or joint pains. SKIN AND INTEGUMENT: No skin changes. No rash. PSYCHIATRIC: No symptoms of anxiety or depression. PAST MEDICAL HISTORY: Significant for coronary artery disease, history of previous AR, hypertension, hyperlipidemia, prostate cancer, gastroesophageal reflux disease. PAST SURGICAL HISTORY: He has had hemorrhoid surgery. ALLERGIES: SULFA. HE IS NOT REALLY SURE WHAT IS THE REACTION. SOCIAL HISTORY: He is single. He is a nonsmoker and nondrinker. He does not have any children. His brother, Ayan Garland is the surrogate decision maker and he would want to be a full code. FAMILY HISTORY: Significant for heart disease in his mother. His father had colon cancer. His brother has had significant heart disease with stents placed in the last year. CURRENT MEDICATIONS: 1. Aspirin 81 mg daily. 2. Latanoprost 0.005%. 3. Metoprolol 50 mg twice daily. 4. Nitrostat 0.4 sublingual. 5. Pantoprazole 40 mg daily. 6. Flomax 0.4 mg daily. 7. Trazodone 50 mg once a day. 8. Atorvastatin 40 mg daily. 9. Plavix 75 mg daily. 10. Oxybutynin 5 mg t.i.d. PHYSICAL EXAMINATION: GENERAL: He is alert and oriented. He appears to be in no acute distress. He is well developed and well nourished, and very cooperative with the exam. VITAL SIGNS: Blood pressure was 140/88, heart rate 72, respiratory rate of 16, and he is afebrile. HEENT: Atraumatic, normocephalic. Pupils are equal, round, and reactive to light. Extraocular muscles are intact. His sclerae anicteric. Throat, there is no erythema, no exudates. He is edentulous. NECK: There is no adenopathy. No bruits. LUNGS: Clear to auscultation. There is no wheezing, no rales, no rhonchi. CARDIOVASCULAR: He has a normal S1 and S2. I did not appreciate an S3 or S4. No murmurs, clicks, or rubs. ABDOMEN: Soft, nontender, and nondistended. Positive for bowel sounds. There is no rebound, no guarding. No organomegaly. EXTREMITIES: There is no calf tenderness. No joint effusions. No edema. NEUROLOGIC: His cranial nerves 2 through 12 are grossly intact. His muscle strength is 5/5 in both his upper and lower extremities. SKIN AND INTEGUMENT: There are no skin changes. No rash. LABORATORY DATA AND IMAGING STUDIES: On his EKG, sinus rhythm, the rate is 58 and did not appreciate any ST wave changes. On his labs, the sodium is 135, potassium 4.4, chloride is 107, CO2 is 18, BUN of 19, creatinine 1.42, glucose is 112. The white blood cell count 6.3, hemoglobin 12.8, hematocrit is 37.7, and platelet count is 150. Troponin is 0.017. He also had a CT dissection protocol. There was no evidence of any dissection. There was evidence of a mild compression fracture involving the endplates of T2 and T3 with some severe DJD at L5 and S1. ASSESSMENT: 1. This is a pleasant 79-year-old gentleman, who presents to the emergency room with complaints of chest pain. He says it is very similar to the pain he had when he had a heart attack a few years back. He does have significant risk factors for coronary artery disease. Therefore, he will be placed in observation. We will continue to trend his cardiac enzymes, place him on aspirin, nitrates, and statin as tolerated. We will hold off on a beta-livia as his heart rate is already low and we will get a nuclear stress test to help further stratify his risk. 2. Hypertension. His blood pressure appears to be relatively well controlled. We will need to reconcile and restart his medication and offer p.r.n. medicines as needed. 3. Hyperlipidemia. We will continue atorvastatin and we will be checking a lipid panel in the a.m. and we will also be placing him on DVT as well GI prophylaxis. Job ID: [id number]
[2019-05-16] MEDS ORDERED: Enoxaparin Sodium 30 MG/0.3 ML SYRINGE SC SCH (09:00)
[2019-05-16] MEDS ORDERED: Enoxaparin Sodium 60 MG/0.6 ML SYRINGE SC SCH (09:00)
[2019-05-16] MEDS: Atorvastatin Calcium 40 MG TAB PO SCH (09:13)
[2019-05-16] MEDS: Aspirin 81 mg Enteric Coated Tablet PO SCH (09:13)
[2019-05-16] MEDS: Metoprolol Tartrate 50 MG TAB PO SCH ×2 (09:14→20:20)
[2019-05-16] MEDS: Clopidogrel Bisulfate 75 MG TAB PO SCH (09:14)
[2019-05-16] MEDS: Oxybutynin 5 MG TAB PO SCH ×2 (09:14→20:19)
[2019-05-16] MEDS: Tamsulosin HCl 0.4 MG CAP PO SCH (09:16)
[2019-05-16] MEDS: Acetaminophen 325 MG TAB PO PRN ×2 (09:16→18:40)
[2019-05-16] MEDS: Enoxaparin Sodium 80 MG/0.8 ML SYRINGE SC SCH ×2 (09:23→20:21)
[2019-05-16 11:03] LABS: Troponin I 1.621 ng/mL (< 0.028)
--- NOTE | 2019-05-16 13:23 | PDOC.HOSPP ---
- Subjective Encounter Date: 05/16/19 Encounter Time: 13:21 Subjective: Mr. Garland was seen today in follow-up of NSTEMI. He says he has some mild chest discomfort, but otherwise ok. - Objective Vital Signs & Weight: Vital Signs (12 hours) Temp Pulse Resp BP Pulse Ox 05/16/19 11:17 98.1 F 56 L 20 105/57 L 97 05/16/19 07:27 98 05/16/19 07:13 98.2 F 74 20 112/59 L 98 05/16/19 03:35 97.4 F L 66 17 115/62 98 Weight Weight 161 lb 1.6 oz I&O: 05/15/19 05/16/19 05/17/19 06:59 06:59 06:59 Intake Total 240 Output Total 50 Balance 190 Result Diagrams: 05/16/19 05:54 05/16/19 05:54 Hospitalist ROS - Medication Medications: Active Medications Generic Name Dose Route Start Last Admin Trade Name Freq PRN Reason Stop Dose Admin Acetaminophen 650 mg 05/15/19 21:33 05/16/19 09:16 Tylenol PO 650 mg Q4H PRN Administration Headache/Fever/Mild Pain (1-3) Aspirin 81 mg 05/16/19 09:00 05/16/19 09:13 Ecotrin PO 81 mg DAILY HALLE Administration Atorvastatin Calcium 40 mg 05/16/19 09:00 05/16/19 09:13 Lipitor PO 40 mg DAILY HALLE Administration Clopidogrel Bisulfate 75 mg 05/16/19 09:00 05/16/19 09:14 Plavix PO 75 mg DAILY HALLE Administration Enoxaparin Sodium 70 mg 05/16/19 09:00 05/16/19 09:23 Lovenox SC Not Given [id number],2099 HALLE Metoprolol Tartrate 50 mg 05/15/19 21:00 05/16/19 09:14 Lopressor PO 50 mg BID HALLE Administration Nitroglycerin 0.5 inch 05/15/19 22:00 05/16/19 05:55 Nitro-Bid 2% Ointment TOP 0.5 inch Q8HR HALLE Administration Oxybutynin Chloride 5 mg 05/16/19 09:00 05/16/19 09:14 Ditropan PO 5 mg BID HALLE Administration Pantoprazole Sodium 40 mg 05/16/19 09:00 05/16/19 09:14 Protonix PO 40 mg DAILY HALLE Administration Sodium Chloride 10 ml 05/16/19 09:00 05/16/19 09:15 Flush - Normal Saline IVF 10 ml Q12HR HALLE Administration Tamsulosin HCl 0.4 mg 05/16/19 09:00 05/16/19 09:16 Flomax PO Not Given DAILY HALLE Trazodone HCl 100 mg 05/16/19 00:15 05/16/19 00:15 Desyrel PO 100 mg HS PRN Administration Insomnia - Exam Eye: PERRL, anicteric sclera Heart: RRR, no murmur, no gallops, no rubs, normal peripheral pulses Respiratory: CTAB, no wheezes, no rales, no ronchi, normal chest expansion, no tachypnea, normal percussion Gastrointestinal: soft, non-tender, non-distended, normal bowel sounds, no palpable masses, no hepatomegaly Extremities: no cyanosis, no clubbing, no edema Psychiatric: normal affect, normal behavior, A&O x 3 Hosp A/P (1) NSTEMI (non-ST elevated myocardial infarction) Code(s): I21.4 - NON-ST ELEVATION (NSTEMI) MYOCARDIAL INFARCTION Status: Acute (2) CAD (coronary artery disease) Code(s): I25.10 - ATHSCL HEART DISEASE OF [place] CORONARY ARTERY W/O ANG PCTRS Status: Chronic (3) Hypertension Code(s): I10 - ESSENTIAL (PRIMARY) HYPERTENSION Status: Chronic - Plan * NSTEMI- will continue Nitrates, lovenox, aspirin, plavix and Metoprolol * Due to elevated of the troponin, will cancel the stress test * Await Cardiology input * Will order Echo * HTN- blood pressure is low normal
[2019-05-16] MEDS ORDERED: Sodium Chloride 0.9% 1,000 ML IV SCH (14:45)
[2019-05-16] MEDS ORDERED: Communication Order-Pharmacy FS SCH ×2 (14:45→20:45)
--- NOTE | 2019-05-16 15:54 | CON ---
DATE OF CONSULTATION: REASON FOR CONSULTATION: Type 1 myocardial infarction. HISTORY OF PRESENT ILLNESS: Mr. Garland is a 79-year-old gentleman, who recently presented with chest pain. He has a previous history of stent placement to LAD, circumflex artery, and right coronary artery. He underwent coronary angiography in 2018. He was found to have patent stents present within the right coronary artery, circumflex artery, and LAD. He had an 80% ostial stenosis of intermediate ramus branch. His peak troponin was 1.4. PAST MEDICAL HISTORY: CAD, status post stent placement; hypertension; hyperlipidemia; prostate cancer; and anxiety disorder. ALLERGIES: SULFA. HOME MEDICATIONS: Include: 1. Aspirin. 2. Atorvastatin. 3. Plavix. 4. Lisinopril. 5. Metoprolol. 6. Pantoprazole. 7. Tamsulosin. SOCIAL HISTORY: No current tobacco or alcohol use. REVIEW OF SYSTEMS: A 10-point review of systems is reviewed as above. Otherwise, negative. PHYSICAL EXAMINATION: GENERAL: Patient is a pleasant gentleman, who is in no acute distress. The patient appears their stated age. VITAL SIGNS: Blood pressure 105/57, pulse 66, temperature 98.1. NEUROLOGIC: The patient is alert and oriented x3 with no focal neurologic deficits. HEENT: Sclerae without icterus. Mouth has moist mucous membranes with normal pallor. NECK: No JVD. Carotid upstroke brisk. No bruits bilaterally. LUNGS: Clear to auscultation with unlabored respirations. BACK: No scoliosis or kyphosis. CARDIAC: Regular rate and rhythm with normal S1 and S2. No S3 or S4 noted. No significant rubs, murmurs, thrills, or gallops noted throughout the precordium. PMI is not displaced. There is no parasternal heave. ABDOMEN: Soft, nontender, nondistended. No peritoneal signs present. No hepatosplenomegaly. No abnormal striae. EXTREMITIES: 2+ femoral and 2+ dorsalis pedis pulses. No cyanosis, clubbing, or edema. SKIN: No gross abnormalities. PERTINENT LABORATORY DATA: As above. EKG; normal sinus rhythm, normal EKG. IMPRESSION: 1. Type 1 myocardial infarction. 2. Coronary artery disease. RECOMMENDATIONS: Given his elevated troponin and acute onset of symptoms, we would recommend coronary angiography and possible PCI. I discussed procedure in full detail with Mr. Garland. Risks included, not limited to the following; , stroke, MT, need for emergency surgery, loss of limb, bleeding, and infection, as well as a reaction to the dye causing kidney failure and needing long-term dialysis. I also discussed the risks of PCI to include all of the above including coronary dissection and perforation in addition to acute stent thrombosis and restenosis. All questions were answered. Given the above, the patient agreed to proceed with the above procedure. I also discussed drug-coated versus nondrug-coated stent placement. There are no contraindication to proceed if needed. Further recommendations pending the above. Job ID: [id number]
[2019-05-16] MEDS: Latanoprost 0.005% Ophth Soln 2.5 ml Bottle EA EYE SCH (20:22)
[2019-05-17] MEDS: Aspirin 81 mg Enteric Coated Tablet PO SCH (05:57)
[2019-05-17] MEDS: Metoprolol Tartrate 50 MG TAB PO SCH ×2 (05:57→20:49)
[2019-05-17] MEDS: Clopidogrel Bisulfate 75 MG TAB PO SCH (05:57)
[2019-05-17] MEDS: Oxybutynin 5 MG TAB PO SCH ×2 (05:57→20:49)
[2019-05-17] MEDS: Atorvastatin Calcium 40 MG TAB PO SCH (05:58)
[2019-05-17] MEDS: Nitroglycerin 2% Ointment 1 INCH/1 GM Packet TOP SCH ×2 (05:59→12:45)
[2019-05-17] MEDS ORDERED: Sodium Chloride 0.9% 1,000 ML IV SCH ×2 (06:00→13:00)
[2019-05-17] MEDS: Tamsulosin HCl 0.4 MG CAP PO SCH (06:06)
[2019-05-17 09:14] LABS: Critical Call Chem Troponin I RESULT DECREASING; Troponin I 0.583 ng/mL (< 0.028)
[2019-05-17] MEDS ORDERED: Iopamidol 370 76% 100 ML VIAL ONE (09:43)
--- NOTE | 2019-05-17 10:14 | PDOC.HOSPP ---
- Subjective Encounter Date: 05/17/19 Encounter Time: 10:12 Subjective: Mr. Garland was seen today in follow-up of NSTEMI. He does not have any complaints this morning. - Objective Vital Signs & Weight: Vital Signs (12 hours) Temp Pulse Resp BP Pulse Ox 05/17/19 07:19 97.9 F 67 16 120/66 98 05/17/19 06:33 97 05/17/19 04:57 97.5 F L 66 18 106/59 L 97 05/17/19 02:05 97 Weight Weight 160 lb 9.6 oz I&O: 05/16/19 05/17/19 05/18/19 06:59 06:59 06:59 Intake Total 240 560 Output Total 50 325 Balance 190 235 Result Diagrams: 05/16/19 05:54 05/16/19 05:54 Hospitalist ROS - Medication Medications: Active Medications Generic Name Dose Route Start Last Admin Trade Name Freq PRN Reason Stop Dose Admin Acetaminophen 650 mg 05/15/19 21:33 05/16/19 18:40 Tylenol PO 650 mg Q4H PRN Administration Headache/Fever/Mild Pain (1-3) Aspirin 81 mg 05/16/19 09:00 05/17/19 05:57 Ecotrin PO 81 mg DAILY HALLE Administration Atorvastatin Calcium 40 mg 05/16/19 09:00 05/17/19 05:58 Lipitor PO 40 mg DAILY HALLE Administration Clopidogrel Bisulfate 75 mg 05/16/19 09:00 05/17/19 05:57 Plavix PO 75 mg DAILY HALLE Administration Sodium Chloride 1,000 mls @ 100 mls/hr 05/17/19 06:00 05/17/19 06:01 Normal Saline 0.9% IV 1,000 mls .Q10H HALLE Administration Latanoprost 1 drop 05/16/19 21:00 05/16/19 20:22 Xalatan 0.005% Ophth Soln EA EYE 1 drop HS HALLE Administration Metoprolol Tartrate 50 mg 05/15/19 21:00 05/17/19 05:57 Lopressor PO 50 mg BID HALLE Administration Morphine Sulfate 2 mg 05/15/19 21:33 05/16/19 20:00 Morphine SLOW IVP 2 mg Q4H PRN Administration Chest Pain Nitroglycerin 0.5 inch 05/15/19 22:00 05/17/19 05:59 Nitro-Bid 2% Ointment TOP 0.5 inch Q8HR HALLE Administration Oxybutynin Chloride 5 mg 05/16/19 09:00 05/17/19 05:57 Ditropan PO 5 mg BID HALLE Administration Pantoprazole Sodium 40 mg 05/16/19 09:00 05/17/19 05:57 Protonix PO 40 mg DAILY HALLE Administration Sodium Chloride 10 ml 05/16/19 09:00 05/17/19 06:02 Flush - Normal Saline IVF 10 ml Q12HR HALLE Administration Tamsulosin HCl 0.4 mg 05/16/19 09:00 05/17/19 06:06 Flomax PO Not Given DAILY HALLE Trazodone HCl 100 mg 05/16/19 00:15 05/16/19 00:15 Desyrel PO 100 mg HS PRN Administration Insomnia - Exam Eye: PERRL Heart: RRR, no murmur, no gallops, no rubs, normal peripheral pulses Respiratory: CTAB, no wheezes, no rales, no ronchi, normal chest expansion Gastrointestinal: soft, non-tender, non-distended, normal bowel sounds, no palpable masses, no hepatomegaly, no splenomegaly, no bruit Extremities: no cyanosis, no clubbing, no edema Hosp A/P (1) NSTEMI (non-ST elevated myocardial infarction) Code(s): I21.4 - NON-ST ELEVATION (NSTEMI) MYOCARDIAL INFARCTION Status: Acute (2) CAD (coronary artery disease) Code(s): I25.10 - ATHSCL HEART DISEASE OF [place] CORONARY ARTERY W/O ANG PCTRS Status: Chronic (3) Hypertension Code(s): I10 - ESSENTIAL (PRIMARY) HYPERTENSION Status: Chronic - Plan * NSTEMI- will continue Nitrates, lovenox, aspirin, plavix and Metoprolol * Plan is for cardiac cath today * HTN- blood pressure is low normal
[2019-05-17] MEDS ORDERED: Fentanyl 100 MCG/2 ML VIAL ONE (12:38)
[2019-05-17] MEDS ORDERED: Midazolam HCl 2 mg/2 ml Vial ONE (12:38)
[2019-05-17] MEDS ORDERED: Lidocaine 1% (PF) 30 ML VIAL ONE (12:53)
[2019-05-17] MEDS ORDERED: Nitroglycerin 0.4 MG TAB (25 Tab Bottle) SL PRN (12:58)
[2019-05-17] MEDS ORDERED: Acetaminophen/Codeine 30-300mg Tablet PO PRN ×2 (12:58)
[2019-05-17] MEDS ORDERED: Sodium Chloride 0.9% 200 ML IV PRN (12:58)
--- NOTE | 2019-05-17 18:10 | RAD ---
PA AND LATERAL CHEST: 05/17/19 HISTORY: Shortness of breath. COMPARISON: 05/15/19 study. Heart size is within normal limits. There are atherosclerotic change of the aorta. The lungs are todd r of infiltrates. IMPRESSION: No active intrathoracic disease. POS: TPC
--- NOTE | 2019-05-17 18:12 | NM ---
NUCLEAR MEDICINE LUNG SCAN: 05/17/19 HISTORY: Elevated troponin. Chest pain. Shortness of breath. Ventilation portion of the study is performed using 18.7 millicuries Xenon 133 gas followed by the pe rfusion study performed using 6.1 millicuries 99m technetium MAA. The ventilation study shows evidence for air trapping. I do not see any segmental defects on the perf usion study. There is some minimal peripheral areas of irregularity. IMPRESSION: Findings compatible with a low probability of pulmonary embolus. POS: TPC
[2019-05-17] MEDS: traZODone HCl 50 MG TAB PO PRN (20:49)
[2019-05-17] MEDS: Latanoprost 0.005% Ophth Soln 2.5 ml Bottle EA EYE SCH (20:49)
[2019-05-18] MEDS: Acetaminophen 325 MG TAB PO PRN (09:12)
[2019-05-18] MEDS: Aspirin 81 mg Enteric Coated Tablet PO SCH (09:13)
[2019-05-18] MEDS: Atorvastatin Calcium 40 MG TAB PO SCH (09:13)
[2019-05-18] MEDS: Clopidogrel Bisulfate 75 MG TAB PO SCH (09:13)
[2019-05-18] MEDS: Tamsulosin HCl 0.4 MG CAP PO SCH (09:13)
[2019-05-18] MEDS: Oxybutynin 5 MG TAB PO SCH (09:14)
[2019-05-18] MEDS: Metoprolol Tartrate 50 MG TAB PO SCH (09:14)
--- NOTE | 2019-05-18 14:47 | PDOC.HOSPP ---
- Subjective Encounter Date: 05/18/19 Encounter Time: 14:45 Subjective: Mr. Garland was seen today in follow-up of NSTEMI. He does not have any complaints today. - Objective Vital Signs & Weight: Vital Signs (12 hours) Temp Pulse Pulse Pulse Resp BP BP 05/18/19 11:15 98.4 F 67 19 05/18/19 09:13 64 66 124/58 L 126/56 L 05/18/19 07:49 98.0 F 76 9 L 05/18/19 04:00 98.4 F 62 18 BP Pulse Ox Pulse Ox Pulse Ox 05/18/19 11:15 140/58 L 97 05/18/19 09:13 97 98 05/18/19 07:49 129/60 96 05/18/19 04:00 103/55 L 96 Weight Weight 160 lb 9.6 oz I&O: 05/17/19 05/18/19 05/19/19 06:59 06:59 06:59 Intake Total 560 Output Total 325 50 Balance 235 -50 Result Diagrams: 05/16/19 05:54 05/16/19 05:54 Hospitalist ROS - Medication Medications: Active Medications Generic Name Dose Route Start Last Admin Trade Name Freq PRN Reason Stop Dose Admin Acetaminophen 650 mg 05/15/19 21:33 05/18/19 09:12 Tylenol PO 650 mg Q4H PRN Administration Headache/Fever/Mild Pain (1-3) Acetaminophen/Codeine Phosphate 1 tab 05/17/19 12:58 05/17/19 18:27 Tylenol #3 PO 1 tab Q4H PRN Administration Mild Pain (1-3) Aspirin 81 mg 05/16/19 09:00 05/18/19 09:13 Ecotrin PO 81 mg DAILY HALLE Administration Atorvastatin Calcium 40 mg 05/16/19 09:00 05/18/19 09:13 Lipitor PO 40 mg DAILY HALLE Administration Clopidogrel Bisulfate 75 mg 05/16/19 09:00 05/18/19 09:13 Plavix PO 75 mg DAILY HALLE Administration Latanoprost 1 drop 05/16/19 21:00 05/17/19 20:49 Xalatan 0.005% Ophth Soln EA EYE 1 drop HS HALLE Administration Metoprolol Tartrate 50 mg 05/15/19 21:00 05/18/19 09:14 Lopressor PO 50 mg BID HALLE Administration Morphine Sulfate 2 mg 05/15/19 21:33 05/16/19 20:00 Morphine SLOW IVP 2 mg Q4H PRN Administration Chest Pain Ondansetron HCl 4 mg 05/15/19 21:33 05/17/19 18:28 Zofran Odt PO 4 mg Q6H PRN Administration Nausea/Vomiting Oxybutynin Chloride 5 mg 05/16/19 09:00 05/18/19 09:14 Ditropan PO 5 mg BID HALLE Administration Pantoprazole Sodium 40 mg 05/16/19 09:00 05/18/19 09:14 Protonix PO 40 mg DAILY HALLE Administration Sodium Chloride 10 ml 05/16/19 09:00 05/18/19 09:15 Flush - Normal Saline IVF 10 ml Q12HR HALLE Administration Tamsulosin HCl 0.4 mg 05/16/19 09:00 05/18/19 09:13 Flomax PO 0.4 mg DAILY HALLE Administration Trazodone HCl 100 mg 05/16/19 00:15 05/17/19 20:49 Desyrel PO 100 mg HS PRN Administration Insomnia - Exam Eye: PERRL, anicteric sclera Heart: RRR, no murmur, no gallops, no rubs, normal peripheral pulses Respiratory: CTAB, no wheezes, no rales, no ronchi, normal chest expansion, no tachypnea, normal percussion Gastrointestinal: soft, non-tender, non-distended, normal bowel sounds, no palpable masses, no hepatomegaly, no splenomegaly, no guarding, no rigidity Extremities: no cyanosis, no clubbing, no edema Hosp A/P (1) NSTEMI (non-ST elevated myocardial infarction) Code(s): I21.4 - NON-ST ELEVATION (NSTEMI) MYOCARDIAL INFARCTION Status: Acute (2) CAD (coronary artery disease) Code(s): I25.10 - ATHSCL HEART DISEASE OF [place] CORONARY ARTERY W/O ANG PCTRS Status: Chronic (3) Hypertension Code(s): I10 - ESSENTIAL (PRIMARY) HYPERTENSION Status: Chronic - Plan * NSTEMI- ? Type 2- VQ scan was Low Probability for PE * Home today? - dispo per Cardiology * HTN- blood pressure is low normal
[2019-05-18 17:00] VITALS: BP 123/59; TEMP 98.1
--- NOTE | 2019-05-18 19:32 | DIS ---
DATE OF ADMISSION: 05/16/2019 DATE OF DISCHARGE: 05/18/2019 PRIMARY CARE: At the [facility]. DISCHARGE DISPOSITION: Home. PRIMARY DISCHARGE DIAGNOSES: 1. [id number] myocardial infarction type 2. 2. History of coronary artery disease. 3. Hypertension. 4. Dyslipidemia. DISCHARGE MEDICATIONS: 1. Lipitor 40 mg daily. 2. Trazodone 100 mg at bedtime. 3. Protonix 40 mg daily. 4. Ditropan 5 mg twice daily. 5. Nitrostat 0.4 sublingual p.r.n. 6. Lopressor 50 mg twice daily. 7. Latanoprost 2.5 mL at bedtime. 8. Plavix 75 mg daily. 9. Aspirin 81 mg daily. PROCEDURES AND IMAGING DONE DURING THE ADMISSION: The patient had a CT dissection protocol which was negative for dissection. The patient had a cardiac catheterization showing no evidence of any new flow-limiting disease. The patient had a V/Q scan which was negative or low probability for PE. CODE STATUS: Full code. ALLERGIES: SULFA. HOSPITAL COURSE: Mr. Garland is a pleasant 79-year-old gentleman, who presented to the emergency room complaining of severe chest pain that started while he was grocery shopping. The full details of which are outlined in the history and physical. He was originally placed in observation and his troponin levels are actually became elevated. He was found to have NSTEMI, likely type 2, and that his coronary arteries did not show any evidence of flow-limiting disease. A V/Q scan was done to see whether or not he may have had a PE, which could have contributed to his symptoms. This was essentially negative. It is unclear what may have caused the NSTEMI, could be due to coronary vasospasms or possible small vessel disease. Nevertheless, he was symptom free. At the time of discharge, clinically stable and to continue his previous medications. He is to follow up with his primary care physician in 1 to 2 weeks. Job ID: [id number]
--- NOTE | 2019-05-21 | EKG ---
Test Reason : Blood Pressure : / mmHG Vent. Rate : 058 BPM Atrial Rate : 058 BPM P-R Int : 140 ms QRS Dur : 088 ms QT Int : 438 ms P-R-T Axes : 064 005 039 degrees QTc Int : 429 ms Sinus bradycardia Confirmed by BELEM BEARDEN MD ([id number]), supervising film or videotape editor LANCE ARGUETA ([id number]) on 05/21/2019 12:00:41 AM Referred By: Confirmed By:BELEM BEARDEN MD
== END 2019-05-18 17:30 | disposition home or self-care (01) | DRG 282 ==
LOC: ERS 13:37 → ERHOLD 17:08 → 2SW 21:08 → OBSVTOIN 05-16 08:36 → 2NO 05-17 20:36
PROVIDERS: ADMIT Internal Medicine; ATTEND Internal Medicine
PROC: 4A023N7 Measurement of Cardiac Sampling and Pressure, Left Heart, Percutaneous Approach (ICD-10-PCS; principal; 2019-05-17)
PROC: B2111ZZ Fluoroscopy of Multiple Coronary Arteries using Low Osmolar Contrast (ICD-10-PCS; 2019-05-17)
DX: I21.A1 Myocardial infarction type 2 (principal); I10 Essential (primary) hypertension; E78.5 Hyperlipidemia, unspecified; K21.9 Gastro-esophageal reflux disease without esophagitis; I20.1 Angina pectoris with documented spasm; I25.2 Old myocardial infarction; Z85.46 Personal history of malignant neoplasm of prostate; Z88.2 Allergy status to sulfonamides; Z79.82 Long term (current) use of aspirin; Z79.02 Long term (current) use of antithrombotics/antiplatelets
CPT/HCPCS: 36415; 36416; 71046; 71275; 72191; 74175; 76942; 78582; 80048; 80053; 80061; 82550; 84484; 85025; 93005; 93306; 93458; 93798; 99152; A9540; A9558; C1769; J1644; J1650; J2001; J2250; J2270; J3010; Q0162; Q9966; Q9967

== ENCOUNTER 2019-05-19 14:23 | Observation (INO) | payer MEDICARE ==
[2019-05-19 14:59] LABS: #Eosinphils 0.2 thou/uL (0.0-0.7); #Lymphocytes 1.3 thou/uL (1.20-3.40); #Monocytes 0.3 thou/uL (0.11-0.59); #Neutrophils 3.2 thou/uL (1.40-6.50); %Basophils 0.1 % (0.0-1.0); %Eosinophils 4.8 % (0.0-10.0); %Lymphocytes 25.9 % (21.0-51.0); %Monocytes 6.1 % (0.0-10.0); %Neutrophils 63.1 % (42.0-75.0); Hemoglobin 12.9 g/dL (14.0-18.0); Mean Corpuscular HGB CONC 34.7 g/dL (32.0-36.0); Mean Corpuscular Hemoglobin 31.3 pg (27.0-31.0); Mean Corpuscular Volume 90.3 fL (78.0-98.0); Mean Platelet Volume 8.2 fL (7.4-10.4); Platelet Count 131 thou/uL (130-400); RBC Distribution Width 12.2 % (11.5-14.5); Red Blood Cell (RBC) Count 4.11 mill/uL (4.70-6.10); White Blood Cell (WBC) Count 5.1 thou/uL (4.8-10.8)
[2019-05-19 15:16] LABS: Bacteria/HPF None Seen HPF (None Seen); Bilirubin Negative (Negative); Blood, Urine Trace (Negative); Clarity Clear (Clear); Glucose, Urine (Dipstick) Normal (Negative); Leukocyte Negative Leu/uL (Negative); Nitrite Negative (Negative); Protein, Urine (Dipstick) 10 mg/dL (Neg-Trace); RBC/HPF 0-3 HPF (0-3); Squamous Epithelial 0-3 HPF (0-3); Urobilinogen Normal mg/dL (Less than 2); WBC/HPF 0-3 HPF (0-3)
[2019-05-19 15:21] LABS: ALT (SGPT) 13 U/L (8-55); AST (SGOT) 17 U/L (5-34); Albumin 4.3 g/dL (3.4-4.8); Alkaline Phosphatase 74 U/L (40-110); Anion Gap 13 mmol/L (10-20); BUN (Urea Nitrogen) 12 mg/dL (8.4-25.7); Bilirubin, Total 0.3 mg/dL (0.2-1.2); Calc. Creatinine Clearance 0 mL/min (70-130); Calcium 9.8 mg/dL (7.8-10.44); Carbon Dioxide 23 mmol/L (23-31); Chloride 104 mmol/L (98-107); Estimated GFR-MDRD 59; Globulin 3.3 g/dL (2.4-3.5); Glucose 127 mg/dL (83-110); Lipase 6 U/L (8-78); Potassium 4.5 mmol/L (3.5-5.1); Protein, Total 7.6 g/dL (5.8-8.1); Sodium 135 mmol/L (136-145)
[2019-05-19] MEDS ORDERED: Morphine 4 MG/ML VIAL ONE (15:35)
[2019-05-19] MEDS ORDERED: Ondansetron PF 4 MG/2 ML Vial ONE (15:35)
--- NOTE | 2019-05-19 16:03 | CT ---
EXAM: CT angiogram chest, abdomen, and pelvis with IV contrast and 3-D reconstructions HISTORY: Abdominal pain post cardiac catheterization. Nausea and vomiting. Patient also reports abdominal spas ms. Pain in lower abdomen. COMPARISON: CTA chest and abdomen on 05/15/2019 FINDINGS: Vessels: The thoracic and abdominal aorta are normal in caliber without evidence of an aortic dissect ion. Scattered minimal vascular calcifications are seen. There are prominent coronary artery calcifications visualized. A normal arrangement of the great vessels at the aortic arch are visualize d and patent. The celiac artery is downgoing with [id number] narrowing proximally suggesting arcuate ligament. The superior mesenteric and inferior mesenteric arteries are patent. Four patent le ft renal arteries are seen with single patent right renal artery. There is minimal irregularity involving the anterior aspect of the right common femoral artery with findings suggestive of a very t iny focal dissection. Lungs: Atelectasis in each lung base greater on the right. No consolidation or pulmonary nodule is se en. Pleura: No pleural effusion. Lymph nodes: No lymphadenopathy. Mediastinum: No acute process of the mediastinal structures. Chest wall: No abnormalities Liver: Within normal limits. Gallbladder: Decompressed.\ Pancreas: Within normal limits. Spleen:Normal appearance for arterial phase of imaging. Adrenal glands: Within normal limits. Kidneys: Subcentimeter too small to characterize hypodense lesion superior pole right kidney stable f rom prior exam. Urinary Bladder: Decompressed. Mishra urinary bladder do appear mildly thickened, this is probably att ributable to incomplete distention. Reproductive organs: Within normal limits for patient's age. Bowel: There is colonic diverticulosis. There are dilated fluid-filled loops of small bowel present w ith loops of small bowel measuring up to 3 cm. These dilated loops of small bowel are primarily within the right aspect of the abdomen. There are more decompressed loops of small bowel distally. Se veral loops of small bowel are seen in the right mid abdomen which appears to be site of transition. Findings are suggestive of a developing partial small bowel obstruction. A small hiatal hernia is identified. Adenopathy:No lymphadenopathy within the abdomen or pelvis. Peritoneum: No free fluid or fluid collection is seen. No free intraperitoneal gas is identified. Abdominal wall: There is minimal stranding in the right inguinal adipose tissue which may be related to recent cardiac catheterization. There are no findings to suggest a hematoma or pseudoaneurysm based on this exam. Osseous structures: Degenerative changes are seen in the spine with severe degenerative changes again seen at the L5-S1 level with question of fracture along the inferior plate of the L5 vertebral body. Minimal compression fractures involving the superior endplates of the T2 and T3 vertebral janette s is again seen which are again of indeterminate age. IMPRESSION: 1. Suggestion of developing partial small bowel obstruction which was not appreciated on prior study. 2. There is a thin linear density seen in the anterior aspect of the right common femoral artery rela juan to tiny focal dissection. 3. The thoracic and abdominal aorta are again normal in caliber without evidence of an aortic dissect ion. 4. Prominent coronary artery calcifications. 5. Stranding in the right inguinal region which is likely related to patient's recent history of card iac catheterization. No hematoma is seen in this region. 6. Age-indeterminate mild compression fractures involving the superior endplates of the T2 and T3 ny tebral bodies and inferior plate of the L5 vertebral body. 7. Hiatal hernia.
[2019-05-19 18:13] LABS: Troponin I 0.278 ng/mL (< 0.028)
[2019-05-19] MEDS ORDERED: Ondansetron ODT 4 MG TAB PO PRN (20:03)
[2019-05-19] MEDS ORDERED: Acetaminophen 325 MG TAB PO PRN (20:03)
[2019-05-19] MEDS ORDERED: hydrALAZINE 20 MG/ML VIAL SLOW IVP PRN (20:03)
[2019-05-19] MEDS ORDERED: Ondansetron PF 4 MG/2 ML Vial IVP PRN (20:03)
[2019-05-19] MEDS: Sodium Chloride 0.9% 1,000 ML IV SCH (20:46)
[2019-05-19] MEDS: Metoprolol Tartrate 50 MG TAB PO SCH (20:48)
[2019-05-19] MEDS: Oxybutynin 5 MG TAB PO SCH (20:48)
[2019-05-19] MEDS: traZODone HCl 50 MG TAB PO PRN (20:49)
--- NOTE | 2019-05-19 20:50 | RAD ---
Exam: Abdomen 2 views chest one view: HISTORY: Small bowel obstruction COMPARISON: CT angiogram of the chest and abdomen FINDINGS: No significant acute process in the chest. Evidence for a hiatal hernia. Several air-fluid levels in small bowel loops in the upper mid abdomen primarily on the right side which certainly could be evidence for obstruction. Minimal dilute contrast media in the renal upper collecting systems and jayden dder. Fecal material in the colon. IMPRESSION: Abnormally dilated small bowel loops primarily in the mid abdomen and right upper abdomen with some a ir-fluid levels which certainly can be seen in obstruction.
[2019-05-19 21:28] LABS: Troponin I 0.278 ng/mL (< 0.028)
--- NOTE | 2019-05-19 21:48 | HP ---
PRIMARY CARE PHYSICIAN: Dr. Daniel. CHIEF COMPLAINT: Abdominal pain. HISTORY OF PRESENT ILLNESS: Mr. Garland is a very pleasant 79-year-old gentleman, who was just discharged from the hospital yesterday. He was admitted for a non ST-segment elevated myocardial infarction, the etiology of which was unclear. He had a cardiac catheterization, in which there was no evidence of any new flow-limiting disease. He was actually continued on aspirin, Plavix and metoprolol, which he had already been taking and was discharged home. At the time he was discharged, he was pain free. He says that he felt fine until this morning, at 8 a.m., he says he started having a very sharp pain in his abdomen. He rated it about a 6 to 7/10. He said it came and went and kept coming and going off and on. He is not really sure what precipitated it, and then he says that about 11 a.m., he vomited twice. He says that he did not eat anything unusual, but says that in fact he and his brother tried to put together a heart healthy meal. He does admit eating quite a bit of pecans, but he says he does that on a usual basis. The pain was so severe that he came to the ER for evaluation. CTA was done, dissection protocol due to concerns for dissection. This was negative, but it did show findings of a possible evolving small bowel obstruction. The patient says that he did notice some blood in his stool, but it was just when he wiped, but the stool looked normal. He does admit to some constipation and needing to strain over the past few days. He also says he has had a colonoscopy about 5 years ago and says that it was normal. He denies any fevers or chills and otherwise no other complaints. Currently, after being given morphine, his symptoms have completely resolved with regard to both the pain as well as the nausea. REVIEW OF SYSTEMS: All systems were reviewed and are negative except for that mentioned in the history of present illness. PAST MEDICAL HISTORY: Significant for coronary artery disease, recent N-STEMI, hypertension, hyperlipidemia, prostate cancer, and gastroesophageal reflux disease. PAST SURGICAL HISTORY: He has had hemorrhoid surgery. ALLERGIES: TO SULFA AND HE DOES NOT KNOW WHAT THE REACTION IS. SOCIAL HISTORY: He is single. He lives with his brother. He is a nonsmoker and nondrinker. He does not have any children. His brother, Ayan Garland is his surrogate decision maker and he is a full code. FAMILY HISTORY: Significant for heart disease in his mother. Father had colon cancer and his brother had heart disease with stents. MEDICATIONS: Include; 1. Aspirin 81 mg daily. 2. Metoprolol 50 mg twice a day. 3. Nitrostat 0.4 sublingual p.r.n. 4. Pantoprazole 40 mg daily. 5. Flomax 0.4 mg daily. 6. Trazodone 50 mg daily. 7. Atorvastatin 40 mg daily. 8. Plavix 75 mg daily. 9. Oxybutynin 5 mg t.i.d. PHYSICAL EXAMINATION: GENERAL: He is alert and oriented. He appears to be in no acute distress. He is well developed and well nourished. VITAL SIGNS: Blood pressure is 136/70, heart rate ranged from the 50s to 80s, respiratory rate is 17, temperature is 97.7. HEENT: Pupils are equal, round, and reactive. Extraocular muscles are intact. His sclerae are anicteric. Throat, no erythema, no exudates. NECK: No adenopathy, no bruits. LUNGS: Clear to auscultation. There is no wheezing, no rales, no rhonchi. CARDIOVASCULAR: He has a normal S1, S2. There is no S3 or S4. No murmurs, clicks, or rubs. ABDOMEN: Soft, it is obese, mildly distended, tympanic to percussion. He has some mild right-sided abdominal discomfort or abdominal tenderness. There is no rebound or guarding. EXTREMITIES: He has trace pedal edema. NEUROLOGIC: His cranial nerves 2 through 12 are intact. His muscle strength is 5/5 in both his upper and lower extremities. SKIN AND INTEGUMENT: No skin changes. No rashes. LABORATORY DATA: Urinalysis was essentially negative. His CBC; the white blood cell count 5.1, hemoglobin 12.9, hematocrit is 37.1, and platelet count is 131. Sodium 135, potassium 4.5, chloride is 104, CO2 is 23, BUN is 12, creatinine 1.2, glucose is 127. His liver function tests are normal. ASSESSMENT: This is a pleasant 79-year-old gentleman, who presents to the emergency room with abdominal pain and nausea and vomiting. He had some radiographic evidence consistent with a possible small-bowel obstruction. Currently, he looks fairly asymptomatic. He may have had just a mild gastroenteritis, which may be causing these symptoms. The patient will be placed in observation and we will place him on a clear liquid diet and cautious IV fluids and repeat his abdominal series in the a.m. Hopefully, his symptoms will resolve. Otherwise, we will consult General Surgery for further recommendations. History of coronary artery disease, we will continue his home medications for coronary artery disease and hypertension and place him on DVT and GI prophylaxis. Job ID: [id number]
[2019-05-19 22:21] VITALS: BMI 25.3
[2019-05-20 04:43] LABS: Anion Gap 12 mmol/L (10-20); BUN (Urea Nitrogen) 10 mg/dL (8.4-25.7); Calc. Creatinine Clearance 58 mL/min (70-130); Calcium 9.4 mg/dL (7.8-10.44); Carbon Dioxide 23 mmol/L (23-31); Chloride 108 mmol/L (98-107); Estimated GFR-MDRD 65; Glucose 91 mg/dL (83-110); Potassium 4.1 mmol/L (3.5-5.1); Sodium 139 mmol/L (136-145)
[2019-05-20 05:00] LABS: #Eosinphils 0.3 thou/uL (0.0-0.7); #Lymphocytes 1.4 thou/uL (1.20-3.40); #Monocytes 0.5 thou/uL (0.11-0.59); #Neutrophils 2.2 thou/uL (1.40-6.50); %Basophils 0.1 % (0.0-1.0); %Eosinophils 7.1 % (0.0-10.0); %Lymphocytes 32.2 % (21.0-51.0); %Monocytes 10.4 % (0.0-10.0); %Neutrophils 50.2 % (42.0-75.0); Hemoglobin 11.1 g/dL (14.0-18.0); Mean Corpuscular Hemoglobin 30.8 pg (27.0-31.0); Mean Corpuscular Volume 90.8 fL (78.0-98.0); Mean Platelet Volume 8.1 fL (7.4-10.4); Platelet Count 106 thou/uL (130-400); Platelet Morphology Comment Appears Decreased; RBC Distribution Width 12.2 % (11.5-14.5); Red Blood Cell (RBC) Count 3.59 mill/uL (4.70-6.10); White Blood Cell (WBC) Count 4.3 thou/uL (4.8-10.8)
[2019-05-20] MEDS: Enoxaparin Sodium 30 MG/0.3 ML SYRINGE SC SCH (09:12)
[2019-05-20] MEDS: Aspirin 81 mg Enteric Coated Tablet PO SCH (09:12)
[2019-05-20] MEDS: Metoprolol Tartrate 50 MG TAB PO SCH ×2 (09:12→20:57)
[2019-05-20] MEDS: Clopidogrel Bisulfate 75 MG TAB PO SCH (09:12)
[2019-05-20] MEDS: Oxybutynin 5 MG TAB PO SCH ×2 (09:13→20:57)
[2019-05-20] MEDS: Atorvastatin Calcium 40 MG TAB PO SCH (09:13)
[2019-05-20] MEDS ORDERED: Bisacodyl 10 MG SUPP PR PRN (10:48)
--- NOTE | 2019-05-20 15:55 | RAD ---
Small bowel follow-through HISTORY: Abdominal pain. Obstruction. FINDINGS: Stock Holder KUB shows small amount residual contrast within the urinary bladder. Small bowel gas pattern is nonspecific. Iodine-based contrast was ingested orally. Small hiatal hernia and large amount of gastroesophageal r eflux are evident. Small bowel mucosal pattern is within normal limits. Contrast extends to the right lower quadrant and is seen within the right colon at 75 minutes. IMPRESSION: Rapid small bowel transit. No evidence of obstruction. Small hiatal hernia. Gastroesophageal reflux.
[2019-05-20] MEDS: Sodium Chloride 0.9% 1,000 ML IV SCH (16:59)
[2019-05-20] MEDS ORDERED: Sodium Chloride 0.9% 1,000 ML IV SCH (17:00)
--- NOTE | 2019-05-20 20:46 | PDOC.HOSPP ---
- Subjective Encounter Date: 05/20/19 Encounter Time: 10:30 Subjective: pt up in bed no complains of abdomen pain - Objective Vital Signs & Weight: Vital Signs (12 hours) Temp Pulse Resp BP Pulse Ox 05/20/19 16:08 99.3 F 68 16 125/70 98 05/20/19 11:35 97.9 F 54 L 20 129/69 97 Weight Weight 161 lb 14.4 oz I&O: 05/19/19 05/20/19 05/21/19 06:59 06:59 06:59 Intake Total 1600 Output Total 400 Balance 1200 Result Diagrams: 05/20/19 04:00 05/20/19 04:00 Hospitalist ROS - Review of Systems Cardiovascular: denies: chest pain, palpitations, orthopnea, paroxysmal noc. dyspnea, edema, light headedness, other Gastrointestinal: denies: nausea, vomiting, abdominal pain, diarrhea, constipation, melena, hematochezia, other Genitourinary: denies: dysuria, frequency, incontinence, hematuria, retention, other - Medication Medications: Active Medications Generic Name Dose Route Start Last Admin Trade Name Freq PRN Reason Stop Dose Admin Acetaminophen 650 mg 05/19/19 20:03 05/19/19 20:48 Tylenol PO 650 mg Q4H PRN Administration Headache/Fever/Mild Pain (1-3) Aspirin 81 mg 05/20/19 09:00 05/20/19 09:12 Ecotrin PO 81 mg DAILY HALLE Administration Atorvastatin Calcium 40 mg 05/20/19 09:00 05/20/19 09:13 Lipitor PO 40 mg DAILY HALLE Administration Clopidogrel Bisulfate 75 mg 05/20/19 09:00 05/20/19 09:12 Plavix PO 75 mg DAILY HALLE Administration Enoxaparin Sodium 30 mg 05/20/19 09:00 05/20/19 09:12 Lovenox SC 30 mg 0900 HALLE Administration Sodium Chloride 1,000 mls @ 60 mls/hr 05/19/19 20:03 05/20/19 16:59 Normal Saline 0.9% IV Not Given .[id number] HALLE Metoprolol Tartrate 50 mg 05/19/19 21:00 05/20/19 09:12 Lopressor PO 50 mg BID HALLE Administration Oxybutynin Chloride 5 mg 05/19/19 21:00 05/20/19 09:13 Ditropan PO 5 mg BID HALLE Administration Pantoprazole Sodium 40 mg 05/20/19 09:00 05/20/19 09:13 Protonix PO 40 mg DAILY HALLE Administration Trazodone HCl 100 mg 05/19/19 20:03 05/19/19 20:49 Desyrel PO 100 mg HS PRN Administration Insomnia - Exam Neck: negative: supple, symmetric, no JVD, no thyromegaly, no lymphadenopathy, no carotid bruit, JVD Heart: negative: RRR, no murmur, no gallops, no rubs, normal peripheral pulses, irregular, diminshed peripheral pulses, murmur present, II/IV, III/IV Respiratory: negative: CTAB, no wheezes, no rales, no ronchi, normal chest expansion, no tachypnea, normal percussion, rales, rhonchi, tachypneic, wheezes Gastrointestinal: negative: soft, non-tender, non-distended, normal bowel sounds , no palpable masses, no hepatomegaly, no splenomegaly, no bruit, no guarding, no rigidity, tender to palpation, distended, diminished bowl sounds, voluntary guarding Hosp A/P (1) Abdominal pain Code(s): R10.9 - UNSPECIFIED ABDOMINAL PAIN Status: Acute (2) SBO (small bowel obstruction) Code(s): K56.609 - UNSP INTESTNL OBST, UNSP TO PARTIAL VERSUS COMPLETE OBST Status: Acute (3) CAD (coronary artery disease) Code(s): I25.10 - ATHSCL HEART DISEASE OF [place] CORONARY ARTERY W/O ANG PCTRS Status: Chronic (4) Hypertension Code(s): I10 - ESSENTIAL (PRIMARY) HYPERTENSION Status: Chronic - Plan pt is passing gas and have no n/v, will order small bowel follow through. if no obstruction will discharge. pt has significant stool in his colon.
[2019-05-20] MEDS: traZODone HCl 50 MG TAB PO PRN (21:00)
[2019-05-21 09:13] VITALS: BP 138/72; TEMP 98.4
[2019-05-21] MEDS: Oxybutynin 5 MG TAB PO SCH (09:39)
[2019-05-21] MEDS: Metoprolol Tartrate 50 MG TAB PO SCH (09:39)
[2019-05-21] MEDS: Atorvastatin Calcium 40 MG TAB PO SCH (09:39)
[2019-05-21] MEDS: Clopidogrel Bisulfate 75 MG TAB PO SCH (09:39)
[2019-05-21] MEDS: Enoxaparin Sodium 30 MG/0.3 ML SYRINGE SC SCH (09:39)
[2019-05-21] MEDS: Aspirin 81 mg Enteric Coated Tablet PO SCH (09:39)
--- NOTE | 2019-05-22 12:13 | DIS ---
DATE OF ADMISSION: 05/19/2019 DATE OF DISCHARGE: 05/21/2019 CHIEF COMPLAINT: Abdominal pain. DISCHARGE DIAGNOSES: 1. Abdominal pain, most likely secondary to constipation. 2. Hypertension. 3. Coronary artery disease. 4. Possible small obstruction. HOSPITAL COURSE: The patient is a 79-year-old male, who recently presented to the hospital with chest pain, underwent a cardiac cath with no intervention and also had a PE study, which was negative, who presented to the hospital with abdominal pain. He underwent a CT aortic dissection, which indicated possible partial small-bowel obstruction. The patient also had age determinate mild compression fracture and also a tiny linear density in the anterior aspect of the right common femoral artery related to a possible tiny focal dissection. The patient underwent a small bowel x-ray with Gastrografin, which indicated no small-bowel obstruction, however, he had significant amount of loose stools and felt much better and his abdominal pain improved. The patient was then discharged home. He will follow up with his primary. HOME MEDICATIONS: 1. Aspirin 81 mg daily. 2. Atorvastatin 40 mg daily. 3. Clopidogrel 75 mg daily. 4. Metoprolol 50 mg b.i.d. 5. Oxybutynin 5 mg b.i.d. 6. Protonix 40 mg daily. 7. Trazodone 100 mg daily. 8. MiraLAX 17 g p.o. p.r.n. PHYSICAL EXAMINATION: VITAL SIGNS: Temperature of 98.4, pulse 70, respiratory rate 16, sats 100% on room air, and blood pressure 138/72. GENERAL: He is awake, alert, and oriented x3, does not appear in any distress. CVS: S1, S2 present, murmurs, rubs, or gallops. ABDOMEN: Soft, nontender. Positive bowel sounds. The patient will be discharged home. He will follow up with his primary care doctor and the patient was asked to come into the hospital as any of the changes, if he starts having pain or any chest pain. Job ID: [id number]
--- NOTE | 2019-05-27 15:45 | EKG ---
Test Reason : Blood Pressure : / mmHG Vent. Rate : 065 BPM Atrial Rate : 065 BPM P-R Int : 164 ms QRS Dur : 072 ms QT Int : 380 ms P-R-T Axes : 076 -18 -04 degrees QTc Int : 395 ms Normal sinus rhythm Nonspecific ST abnormality Abnormal ECG Confirmed by GABRIELLE BELTRAN ([id number]), multimedia editor YURI PRIEST ([id number]) on 05/27/2019 3:44:36 PM Referred By: Confirmed By:GABRIELLE BELTRAN
== END 2019-05-21 11:50 | disposition home or self-care (01) ==
LOC: ERS 14:23 → 2SW 18:08
PROVIDERS: ADMIT Internal Medicine; ATTEND Internal Medicine
DX: R10.9 Unspecified abdominal pain (principal); K44.9 Diaphragmatic hernia without obstruction or gangrene; K21.9 Gastro-esophageal reflux disease without esophagitis; I10 Essential (primary) hypertension; I25.10 Atherosclerotic heart disease of native coronary artery without angina pectoris; E78.5 Hyperlipidemia, unspecified; C61 Malignant neoplasm of prostate; Z79.82 Long term (current) use of aspirin; Z79.899 Other long term (current) drug therapy; Z80.0 Family history of malignant neoplasm of digestive organs; Z88.2 Allergy status to sulfonamides
CPT/HCPCS: 71275; 72191; 74022; 74175; 74250; 80048; 80053; 82274; 82553; 83690; 84484 ×2; 85025 ×2; 93005; 96361 ×3; 96372 ×2; 96374; 96375; 97139; 99285; G0378 ×4; 36415; 81003; 81015; J1650; J2270; J2405

== ENCOUNTER 2019-09-20 05:02 | Observation (INO) | payer MEDICARE ==
[2019-09-20] MEDS ORDERED: Ondansetron ODT 4 MG TAB ONE (05:07)
[2019-09-20 05:47] LABS: #Eosinphils 0.1 thou/uL (0.0-0.7); #Monocytes 0.2 thou/uL (0.11-0.59); #Neutrophils 3.8 thou/uL (1.40-6.50); %Basophils 0.2 % (0.0-1.0); %Eosinophils 1.6 % (0.0-10.0); %Neutrophils 75.2 % (42.0-75.0); Hemoglobin 12.5 g/dL (14.0-18.0); Mean Corpuscular HGB CONC 33.9 g/dL (32.0-36.0); Mean Corpuscular Hemoglobin 30.9 pg (27.0-31.0); Mean Corpuscular Volume 91.2 fL (78.0-98.0); Mean Platelet Volume 8.2 fL (7.4-10.4); Platelet Count 129 thou/uL (130-400); RBC Distribution Width 12.9 % (11.5-14.5); Red Blood Cell (RBC) Count 4.05 mill/uL (4.70-6.10)
[2019-09-20] MEDS ORDERED: Ondansetron PF 4 MG/2 ML Vial ONE (05:53)
[2019-09-20] MEDS ORDERED: Acetaminophen 500 MG TAB ONE (05:53)
[2019-09-20 06:09] LABS: ALT (SGPT) 10 U/L (8-55); AST (SGOT) 16 U/L (5-34); Albumin 4.1 g/dL (3.4-4.8); Alkaline Phosphatase 74 U/L (40-110); Anion Gap 12 mmol/L (10-20); BUN (Urea Nitrogen) 12 mg/dL (8.4-25.7); Bilirubin, Total 0.5 mg/dL (0.2-1.2); Calc. Creatinine Clearance 0 mL/min (70-130); Calcium 9.6 mg/dL (7.8-10.44); Carbon Dioxide 22 mmol/L (23-31); Chloride 109 mmol/L (98-107); Estimated GFR-MDRD 62; Glucose 133 mg/dL (83-110); Lipase 14 U/L (8-78); Potassium 4.2 mmol/L (3.5-5.1); Protein, Total 7.1 g/dL (5.8-8.1); Sodium 139 mmol/L (136-145)
[2019-09-20 06:17] LABS: Bilirubin Negative (Negative); Blood, Urine Negative (Negative); Clarity Clear (Clear); Glucose, Urine (Dipstick) Normal (Negative); Leukocyte Negative Leu/uL (Negative); Nitrite Negative (Negative); Protein, Urine (Dipstick) Negative (Neg-Trace); Urobilinogen Normal mg/dL (Less than 2)
[2019-09-20] MEDS ORDERED: Piperacillin/Tazobactam 4.5 GM VIAL ONE (06:32)
[2019-09-20] MEDS ORDERED: Ibuprofen 800 MG TAB ONE (07:15)
--- NOTE | 2019-09-20 07:36 | CT ---
CT ABDOMEN AND PELVIS WITH CONTRAST: Date: 09/20/2019 COMPARISON: 04/20/19. HISTORY: Nausea, vomiting, and hematemesis. TECHNIQUE: Multiple contiguous axial images were obtained in a CT of the abdomen and pelvis with contrast. Sagit mercedes and coronal reformats were performed. FINDINGS: The liver, gallbladder, kidneys, adrenal glands, spleen, and pancreas are unremarkable. No free air, free fluid, or stranding changes are seen in the abdomen or pelvis. There are a few scattered diverticula in the colon. The small bowel is unremarkable. No abdominal or pelvic lymphadenopathy seen. There is a moderate hiatal hernia. Degenerative changes are seen in the spine. The abdominal wall sof t tissues are unremarkable. There are focal opacities in the right middle lobe and to a lesser extent in the right lower lobe, which may represent infiltrates in the lungs. IMPRESSION: 1. No evidence of acute intra-abdominal/pelvic abnormality. 2. Hiatal hernia. 3. Pulmonary infiltrates in the right middle and lower lobes. POS: C
[2019-09-20 09:44] LABS: Lactic Acid 2.3 mmol/L (0.5-2.2)
[2019-09-20] MEDS ORDERED: Nitroglycerin 0.4 MG TAB (25 Tab Bottle) SL PRN (11:16)
[2019-09-20] MEDS ORDERED: traZODone HCl 50 MG TAB PO PRN (11:30)
[2019-09-20] MEDS: Ampicillin/Sulbactam 1.5 GM in Sodium Chloride 0.9% 100 ML IVPB SCH ×2 (14:26→19:07)
--- NOTE | 2019-09-20 14:46 | HP ---
CHIEF COMPLAINT: Nausea and vomiting. HISTORY OF PRESENT ILLNESS: This is a pleasant 79-year-old male with past medical history of hypertension, hyperlipidemia, [place], prostate cancer status post radiation, and hepatitis C, who presented to the hospital with complaints of nausea and vomiting that started earlier today. The patient was previously in his usual state of health and had no recent illnesses. His nausea started suddenly and was followed multiple bouts of vomiting. The patient reported that there were some bloody streaks on the vomiting material. He denies any fever, but reports some chills and feeling sick earlier today. He presented to the emergency department, where a CT scan of the abdomen and pelvis was performed showing no abdominal abnormalities, but revealed right-sided pneumonia. The patient reported episodes of cough after he had vomiting earlier today. He also endorsed eating some old food for dinner yesterday that he suspected causes vomiting. PAST MEDICAL HISTORY: As noted above. PAST SURGICAL HISTORY: Hemorrhoidectomy. SOCIAL HISTORY: The patient denies alcohol use, denies smoking, denies drug abuse. PHYSICAL EXAMINATION: GENERAL: The patient is alert and oriented x3. He appears well. HEENT: His head is normocephalic, atraumatic. His extraocular muscles intact. His pupils are equal and reactive to light. NECK: Supple. CHEST: Clear to ausculation bilaterally except for crackles at the right bases. CARDIAC: Revealed regular rate and rhythm. Normal S1 and S2. No murmurs, rubs, or gallops. ABDOMEN: Showed soft abdomen with regular bowel sounds. NEUROLOGICAL: Showed normal cranial nerve II through XII and normal motor and sensory examination. LABORATORY DATA: Initial lab results showed lactic acid of 2.6 that has improved within 2 hours to 2.3. Otherwise, his CBC and BMP are unremarkable. ASSESSMENT AND PLAN: 1. Nausea and vomiting likely due to food poisoning: a. The patient appears to be stable at this time with no persistent nausea or vomiting. 2. Aspiration pneumonia: a. This is likely in relation to his nausea and vomiting. I will initiate Unasyn 1.5 mg IV q.6 hours. b. No signs of sepsis. . Job ID: [id number]
[2019-09-20] MEDS ORDERED: Iopamidol 370 76% 100 ML VIAL ONE (16:00)
[2019-09-20 16:02] VITALS: BMI 25.4
[2019-09-20] MEDS: Acetaminophen 325 MG TAB PO PRN (16:57)
[2019-09-20] MEDS: Metoprolol Tartrate 50 MG TAB PO SCH (20:11)
[2019-09-20] MEDS ORDERED: Latanoprost 0.005% Ophth Soln 2.5 ml Bottle EA EYE SCH (21:00)
[2019-09-20] MEDS ORDERED: Atorvastatin Calcium 40 MG TAB PO SCH (21:00)
[2019-09-21] MEDS: Ampicillin/Sulbactam 1.5 GM in Sodium Chloride 0.9% 100 ML IVPB SCH ×3 (00:23→11:25)
[2019-09-21] MEDS: Acetaminophen 325 MG TAB PO PRN (03:18)
[2019-09-21 05:53] LABS: #Eosinphils 0.2 thou/uL (0.0-0.7); #Lymphocytes 1.2 thou/uL (1.20-3.40); #Monocytes 0.4 thou/uL (0.11-0.59); %Basophils 0.2 % (0.0-1.0); %Eosinophils 2.1 % (0.0-10.0); %Lymphocytes 15.4 % (21.0-51.0); %Monocytes 4.5 % (0.0-10.0); %Neutrophils 77.8 % (42.0-75.0); Hemoglobin 10.8 g/dL (14.0-18.0); Mean Corpuscular HGB CONC 32.5 g/dL (32.0-36.0); Mean Corpuscular Hemoglobin 30.3 pg (27.0-31.0); Mean Corpuscular Volume 93.2 fL (78.0-98.0); Mean Platelet Volume 8.1 fL (7.4-10.4); Platelet Count 110 thou/uL (130-400); RBC Distribution Width 12.9 % (11.5-14.5); Red Blood Cell (RBC) Count 3.56 mill/uL (4.70-6.10); White Blood Cell (WBC) Count 7.7 thou/uL (4.8-10.8)
[2019-09-21 06:15] LABS: Anion Gap 11 mmol/L (10-20); BUN (Urea Nitrogen) 15 mg/dL (8.4-25.7); Calc. Creatinine Clearance 56 mL/min (70-130); Calcium 8.7 mg/dL (7.8-10.44); Carbon Dioxide 21 mmol/L (23-31); Chloride 109 mmol/L (98-107); Estimated GFR-MDRD 63; Glucose 99 mg/dL (83-110); Potassium 4.3 mmol/L (3.5-5.1); Sodium 137 mmol/L (136-145)
[2019-09-21] MEDS: Metoprolol Tartrate 50 MG TAB PO SCH (07:56)
[2019-09-21] MEDS ORDERED: Aspirin 81 mg Enteric Coated Tablet PO SCH (09:00)
[2019-09-21 12:54] VITALS: BP 147/79; TEMP 98.1
--- NOTE | 2019-09-22 12:26 | DIS ---
DATE OF ADMISSION: 09/20/2019 DATE OF DISCHARGE: 09/21/2019 HISTORY OF PRESENT ILLNESS AND HOSPITAL COURSE: This is a 79-year-old male with past medical history of hypertension, hyperlipidemia, [place], prostate cancer status post radiation, and hepatitis C, who presented to the hospital with complaints of nausea and vomiting that started early on day of admission. The patient was previously in his usual state of health and had no recent illnesses. His nausea started suddenly and was followed by multiple bouts of vomiting. The patient reported that there were some blood in his vomiting material. He denies any fever, but reports some chills and feeling sick earlier on the day of the admission. He presented to the emergency department where CT scan of the abdomen and pelvis was performed showing no acute abdominal abnormalities, but also revealed right-sided basilar pneumonia. The patient reported episodes of cough after he vomited earlier on the day of admission. He also endorsed eating some old food for dinner the day before admission. The patient was admitted to the hospital with the impression of aspiration pneumonia. He was started on IV Unasyn. The patient did not exhibit any signs of sepsis. Within 24 hours, the patient was back to his baseline and is ready for discharge. DISCHARGE DIAGNOSES: 1. Aspiration pneumonia. 2. Nausea and vomiting due to food poisoning. DISCHARGE MEDICATIONS: 1. Augmentin 875/125 one tablet orally twice daily for 5 days. 2. Aspirin 81 mg orally daily. 3. Atorvastatin 40 mg orally daily. 4. Latanoprost 2.5 mL ophthalmic solution 1 drop each eye at bedtime. 5. Metoprolol tartrate 50 mg orally twice daily. 6. Nitroglycerin 0.4 mg sublingual q.5 minutes as needed for chest pain. 7. Pantoprazole 40 mg orally daily. 8. Trazodone 100 mg orally nightly as needed for insomnia. 9. Plavix 75 mg orally daily. 10. Oxybutynin 5 mg orally twice daily. 11. MiraLAX 17 g orally daily as needed for constipation. DISCHARGE INSTRUCTIONS: The patient was instructed to increase activities as tolerated, low-salt diet was recommended, and followup with PCP within 1 week was also recommended. Job ID: [id number]
--- NOTE | 2019-09-23 12:05 | EKG ---
Test Reason : ABD PAIN Blood Pressure : / mmHG Vent. Rate : 098 BPM Atrial Rate : 098 BPM P-R Int : 138 ms QRS Dur : 084 ms QT Int : 334 ms P-R-T Axes : 067 013 019 degrees QTc Int : 426 ms Normal sinus rhythm Increased R/S ratio in V1, consider early transition or posterior infarct Abnormal ECG Confirmed by GABRIELLE BELTRAN ([id number]), brands editor YURI PRIEST ([id number]) on 09/23/2019 12:04:44 PM Referred By: Confirmed By:GABRIELLE BELTRAN
== END 2019-09-21 12:49 | disposition home or self-care (01) ==
LOC: ERS 05:02 → INTOOBSV 07:14 → T4-B 07:14
PROVIDERS: ADMIT Internal Medicine; ATTEND Internal Medicine
DX: J69.0 Pneumonitis due to inhalation of food and vomit (principal); A05.9 Bacterial foodborne intoxication, unspecified; I10 Essential (primary) hypertension; E78.5 Hyperlipidemia, unspecified; I25.2 Old myocardial infarction; K44.9 Diaphragmatic hernia without obstruction or gangrene; R91.8 Other nonspecific abnormal finding of lung field; E78.00 Pure hypercholesterolemia, unspecified; Z85.46 Personal history of malignant neoplasm of prostate; Z79.02 Long term (current) use of antithrombotics/antiplatelets; Z79.82 Long term (current) use of aspirin; Z79.899 Other long term (current) drug therapy; Z88.2 Allergy status to sulfonamides; Z95.5 Presence of coronary angioplasty implant and graft
CPT/HCPCS: 36415; 74177; 80048; 80053; 81003; 83605; 83690; 84484; 85025; 87040; 87804; 93005; 96361; 96365; 96366; 96367; 96368; 96376; G0378; J0295; J2405; J2543; J3370; J3490; Q0162; Q9967

== ENCOUNTER 2020-04-13 14:49 | Emergency (ER) | payer MEDICARE ==
[~2020-04-13 14:49] MED LIST: Iopamidol-370 76% 500 ML 1 ML ONE
[2020-04-13 16:02] LABS: Bacteria/HPF None Seen HPF (None Seen); Bilirubin Negative (Negative); Blood, Urine Trace (Negative); Clarity Clear (Clear); Glucose, Urine (Dipstick) Normal (Negative); Ketone, Urine Negative (Negative); Leukocyte Negative Leu/uL (Negative); Nitrite Negative (Negative); Protein, Urine (Dipstick) Negative (Neg-Trace); RBC/HPF 0-3 HPF (0-3); Squamous Epithelial None Seen HPF (0-3); Urobilinogen Normal mg/dL (Less than 2); WBC/HPF 0-3 HPF (0-3)
[2020-04-13 16:11] LABS: #Eosinphils 0.1 thou/uL (0.0-0.7); #Lymphocytes 1.1 thou/uL (1.20-3.40); #Monocytes 0.4 thou/uL (0.11-0.59); #Neutrophils 4.7 thou/uL (1.40-6.50); %Basophils 0.1 % (0.0-1.0); %Lymphocytes 17.1 % (21.0-51.0); %Monocytes 5.9 % (0.0-10.0); Hemoglobin 11.9 g/dL (14.0-18.0); Mean Corpuscular HGB CONC 34.5 g/dL (32.0-36.0); Mean Corpuscular Hemoglobin 31.9 pg (27.0-31.0); Mean Corpuscular Volume 92.3 fL (78.0-98.0); Mean Platelet Volume 8.5 fL (7.4-10.4); Platelet Count 134 thou/uL (130-400); RBC Distribution Width 12.8 % (11.5-14.5); Red Blood Cell (RBC) Count 3.74 mill/uL (4.70-6.10); White Blood Cell (WBC) Count 6.1 thou/uL (4.8-10.8)
[2020-04-13 16:31] LABS: ALT (SGPT) 17 U/L (8-55); AST (SGOT) 19 U/L (5-34); Alkaline Phosphatase 64 U/L (40-110); Anion Gap 13 mmol/L (10-20); BUN (Urea Nitrogen) 12 mg/dL (8.4-25.7); Bilirubin, Total 0.8 mg/dL (0.2-1.2); CK (CPK) 74 U/L (30-200); Calc. Creatinine Clearance 0 mL/min (70-130); Calcium 9.1 mg/dL (7.8-10.44); Carbon Dioxide 21 mmol/L (23-31); Chloride 107 mmol/L (98-107); Estimated GFR-MDRD 67; Glucose 109 mg/dL (83-110); Lipase 9 U/L (8-78); Potassium 4.1 mmol/L (3.5-5.1); Sodium 137 mmol/L (136-145)
[2020-04-13] MEDS ORDERED: Acetaminophen 500 MG TAB ONE (18:06)
--- NOTE | 2020-04-13 18:10 | CT ---
CT OF BRAIN PERFORMED WITHOUT CONTRAST ENHANCEMENT: 04/13/20 HISTORY: Right sided occipital headache. History of prostate cancer. The ventricular and cisternal system shows some generalized atrophy. Decreased attenuation to the per iventricular white matter consistent with some chronic white matter change. There are no signs of int racerebral hemorrhage or extra-axial fluid collections. Mastoid air cells and visualized sinuses are clear. IMPRESSION: No acute intracranial abnormalities. POS: OFF
--- NOTE | 2020-04-13 18:19 | CT ---
CT ABDOMEN AND PELVIS PERFORMED WITH CONTRAST ENHANCEMENT: 04/13/20 HISTORY: Abdominal pain. History of prostate cancer. Abdominal pain is more right lower quadrant. COMPARISON: A 09/20/19 examination. Lung bases show some chronic change with some reticular changes in the basis. This is suggestive of s ome scar. The liver shows an element of fatty change. There is a moderate hiatal hernia seen. The spl een is normal in appearance. The pancreas is atrophic and gallbladder region appears unremarkable. Right and left adrenal glands are normal. Small hypodensity involving the upper pole of the right kid bethel is difficult to characterize due to the small size. This statistically is most likely a small cys t, stable in size as compared to the previous exam. No obstruction or renal calculi. No significant p eriaortic or mesenteric adenopathy. CT OF PELVIS PERFORMED WITH CONTRAST ENHANCEMENT: There is some fairly minimal sigmoid diverticulosis noted. The appendix is difficult to visualize but I see no inflammatory change. There appears to be a short appendix. IMPRESSION: 1. No acute abnormalities of the abdomen or pelvis. 2. Moderate hiatal hernia. 3. Moderate coronary calcifications. 4. Fatty change to the liver. 5. Sigmoid diverticulosis. POS: OFF
== END 2020-04-13 19:38 | disposition home or self-care (01) ==
LOC: ERS 14:49
DX: R51 Headache (principal); R10.31 Right lower quadrant pain; I10 Essential (primary) hypertension; E78.00 Pure hypercholesterolemia, unspecified; I25.2 Old myocardial infarction; F41.9 Anxiety disorder, unspecified; Z79.899 Other long term (current) drug therapy; Z79.82 Long term (current) use of aspirin
CPT/HCPCS: 70450; 74177; 80053; 81003; 81015; 82550; 83690; 85025; Q9967

== ENCOUNTER 2021-02-16 10:39 | Emergency (ER) | payer MEDICARE ==
[2021-02-16 11:37] LABS: Bilirubin Negative (Negative); Blood, Urine Negative (Negative); Clarity Clear (Clear); Glucose, Urine (Dipstick) Normal (Negative); Ketone, Urine Negative (Negative); Leukocyte Negative Leu/uL (Negative); Nitrite Negative (Negative); Protein, Urine (Dipstick) Negative (Neg-Trace); Specific Gravity, Urine 1.014 (1.002-1.036); Urobilinogen Normal mg/dL (Less than 2)
[2021-02-16 12:07] LABS: #Eosinphils 0.2 thou/uL (0.0-0.7); #Lymphocytes 1.2 thou/uL (1.20-3.40); #Monocytes 0.4 thou/uL (0.11-0.59); #Neutrophils 2.4 thou/uL (1.40-6.50); %Basophils 0.6 % (0.0-1.0); %Eosinophils 4.9 % (0.0-10.0); %Neutrophils 57.5 % (42.0-75.0); Hemoglobin 11.5 g/dL (14.0-18.0); Mean Corpuscular Hemoglobin 29.9 pg (27.0-31.0); Mean Corpuscular Volume 93.4 fL (78.0-98.0); Mean Platelet Volume 8.3 fL (7.4-10.4); Platelet Count 124 thou/uL (130-400); RBC Distribution Width 12.3 % (11.5-14.5); Red Blood Cell (RBC) Count 3.84 mill/uL (4.70-6.10); White Blood Cell (WBC) Count 4.2 thou/uL (4.8-10.8)
[2021-02-16 12:29] LABS: ALT (SGPT) 7 U/L (8-55); AST (SGOT) 15 U/L (5-34); Albumin 3.8 g/dL (3.4-4.8); Alkaline Phosphatase 75 U/L (40-110); Anion Gap 13 mmol/L (10-20); BUN (Urea Nitrogen) 27 mg/dL (8.4-25.7); Bilirubin, Total 0.4 mg/dL (0.2-1.2); Calc. Creatinine Clearance 0 mL/min (70-130); Calcium 9.6 mg/dL (7.8-10.44); Carbon Dioxide 25 mmol/L (23-31); Chloride 105 mmol/L (98-107); Globulin 2.9 g/dL (2.4-3.5); Glucose 99 mg/dL (83-110); Lipase 5 U/L (8-78); Potassium 4.8 mmol/L (3.5-5.1); Protein, Total 6.7 g/dL (5.8-8.1); Sodium 138 mmol/L (136-145)
[2021-02-16] MEDS ORDERED: Morphine 4 MG/ML VIAL ONE (13:05)
[2021-02-16] MEDS ORDERED: Morphine 2 MG/ML VIAL ONE (15:11)
== END 2021-02-16 18:52 | disposition home or self-care (01) ==
LOC: ERS 10:39
DX: R33.9 Retention of urine, unspecified (principal); D49.9 Neoplasm of unspecified behavior of unspecified site; N13.30 Unspecified hydronephrosis; R91.8 Other nonspecific abnormal finding of lung field; R10.814 Left lower quadrant abdominal tenderness; R10.813 Right lower quadrant abdominal tenderness; I10 Essential (primary) hypertension; E78.00 Pure hypercholesterolemia, unspecified; I25.2 Old myocardial infarction
CPT/HCPCS: 51702; 74177; 80053; 81003; 83690; 85025; 87086; 96374; 96376; 99284; J2270; 36415; Q9967

== ENCOUNTER 2021-04-23 12:40 | Outpatient (CLI) | payer MEDICARE ==
[2021-04-23 14:39] LABS: Hemoglobin 9.7 g/dL (13.5-17.5); Mean Corpuscular HGB CONC 32.2 g/dL (32.0-36.0); Mean Corpuscular Volume 89.9 fl (81.2-95.1); Platelet Count 162 10x3/uL (150-450); RBC Distribution Width 15.3 % (11.5-14.5); Red Blood Cell (RBC) Count 3.35 10x6/uL (4.32-5.72); White Blood Cell (WBC) Count 8.6 10x3/uL (3.5-10.5)
[2021-04-23 14:41] LABS: Anion Gap 19 mmol/L (10-20); BUN (Urea Nitrogen) 36 mg/dL (8.4-25.7); Calc. Creatinine Clearance 0 mL/min (70-130); Calcium 10.6 mg/dL (7.8-10.44); Carbon Dioxide 18 mmol/L (23-31); Chloride 106 mmol/L (98-107); Glucose 137 mg/dL (83-110); Potassium 5.2 mmol/L (3.5-5.1); Sodium 138 mmol/L (136-145)
[2021-04-23 14:58] LABS: MDiff Complete? YES
[2021-04-23 20:15] LABS: Manual Diff?? YES
[2021-04-23 20:18] LABS: Band 16 % (5-11); Lymphocytes 17 % (21-51); Monocytes 11 % (0-10); Neutrophil 56 % (42-75)
[2021-04-23 20:19] LABS: Anisocytosis SLIGHT = 6-15 cells (100X) (0-5/hpf); Elliptocytes SLIGHT = 2-5 cells (100X) (0-1/hpf); Macrocytosis SLIGHT = 6-15 cells (100X) (0-5/hpf); Microcytosis SLIGHT = 6-15 cells (100X) (0-5/hpf); Platelet Morphology Comment Appears Adequate
[2021-04-24 11:58] LABS: SARS-CoV-2 PCR by NAA Not Detected (NotDetected)
== END 2021-04-23 12:41 | disposition home or self-care (01) ==
LOC: LABBT 12:40
PROVIDERS: ATTEND Specialist
DX: Z01.818 Encounter for other preprocedural examination (principal); R91.8 Other nonspecific abnormal finding of lung field; Z20.822 Contact with and (suspected) exposure to COVID-19
CPT/HCPCS: 71046; 80048; 85025; 93005; U0003; U0005; 93010

== ENCOUNTER 2021-04-28 10:31 | Day surgery (SDC) | payer MEDICARE ==
[2021-04-28] MEDS ORDERED: Ketorolac Tromethamine 30 MG/ML VIAL ONE (10:50)
[2021-04-28] MEDS ORDERED: Acetaminophen 500 MG TAB ONE (10:50)
[2021-04-28] MEDS ORDERED: Lidocaine 1% w/Epinephrine 1:100K 20 ML VIAL ONE (13:17)
[2021-04-28] MEDS ORDERED: Bupivacaine 0.25% HCL 30 ML VIAL ONE (13:17)
[2021-04-28] MEDS ORDERED: Fentanyl 100 MCG/2 ML VIAL ONE (13:18)
[2021-04-28] MEDS ORDERED: Lidocaine 1% PF 5 ML VIAL ONE (13:54)
[2021-04-28] MEDS ORDERED: ePHEDrine 50 MG/ML VIAL ONE (13:54)
[2021-04-28] MEDS ORDERED: PROPOFOL 200 MG/20 ML VIAL ONE (13:54)
== END 2021-04-28 15:22 | disposition home or self-care (01) ==
LOC: SDC 10:31
PROVIDERS: ATTEND Specialist
PROC: 0JH60WZ Insertion of Totally Implantable Vascular Access Device into Chest Subcutaneous Tissue and Fascia, Open Approach (ICD-10-PCS; principal; 2021-04-28)
PROC: 02HV33Z Insertion of Infusion Device into Superior Vena Cava, Percutaneous Approach (ICD-10-PCS; 2021-04-28)
DX: C61 Malignant neoplasm of prostate (principal); C79.9 Secondary malignant neoplasm of unspecified site; I70.0 Atherosclerosis of aorta; E78.00 Pure hypercholesterolemia, unspecified; I11.9 Hypertensive heart disease without heart failure; I25.2 Old myocardial infarction; Z79.02 Long term (current) use of antithrombotics/antiplatelets; Z79.899 Other long term (current) drug therapy; Z88.2 Allergy status to sulfonamides
CPT/HCPCS: 36561; 71045; C1788; J0690; J1642; J1885; J2704; J3010; J3490; S0020

== ENCOUNTER 2021-05-25 18:15 | Inpatient (IN) | payer MEDICARE ==
[2021-05-25 19:16] LABS: #Lymphocytes 1.1 thou/uL (1.20-3.40); #Monocytes 0.3 thou/uL (0.11-0.59); #Neutrophils 2.4 thou/uL (1.40-6.50); %Basophils 0.7 % (0.0-1.0); %Eosinophils 0.1 % (0.0-10.0); %Lymphocytes 28.8 % (21.0-51.0); %Monocytes 8.1 % (0.0-10.0); %Neutrophils 62.3 % (42.0-75.0); Hemoglobin 8.7 g/dL (14.0-18.0); Mean Corpuscular Hemoglobin 30.9 pg (27.0-31.0); Mean Platelet Volume 9.1 fL (7.4-10.4); Platelet Count 115 thou/uL (130-400); RBC Distribution Width 15.7 % (11.5-14.5); Red Blood Cell (RBC) Count 2.81 mill/uL (4.70-6.10); White Blood Cell (WBC) Count 3.9 thou/uL (4.8-10.8)
[2021-05-25 19:32] LABS: Anisocytosis SLIGHT = 6-15 cells (100X) (0-5/hpf); MDiff Complete? YES; Ovalocytes SLIGHT = 2-5 cells (100X) (0-1/hpf); Platelet Morphology Comment Appears Decreased; Polychromasia SLIGHT = 2-3 cells (100X) (0-2/hpf)
[2021-05-25] MEDS ORDERED: Acetaminophen 325 MG TAB ONE (19:36)
[2021-05-25 19:43] LABS: ALT (SGPT) 16 U/L (8-55); AST (SGOT) 30 U/L (5-34); Albumin 3.1 g/dL (3.4-4.8); Alkaline Phosphatase 51 U/L (40-110); Anion Gap 14 mmol/L (10-20); BUN (Urea Nitrogen) 25 mg/dL (8.4-25.7); Bilirubin, Total 0.4 mg/dL (0.2-1.2); Calc. Creatinine Clearance 0 mL/min (70-130); Calcium 8.7 mg/dL (7.8-10.44); Carbon Dioxide 21 mmol/L (23-31); Chloride 110 mmol/L (98-107); Globulin 2.6 g/dL (2.4-3.5); Glucose 134 mg/dL (83-110); Potassium 3.8 mmol/L (3.5-5.1); Protein, Total 5.7 g/dL (5.8-8.1); Sodium 141 mmol/L (136-145)
[2021-05-25] MEDS ORDERED: Vancomycin 1 GM/200 ML BAG ONE ×3 (20:01→20:05)
[2021-05-25] MEDS ORDERED: Cefepime 2 GM VIAL ONE ×4 (20:01→20:07)
[2021-05-25 20:57] LABS: Bacteria/HPF 4+ HPF (None Seen); Bilirubin Negative (Negative); Blood, Urine 3+ (Negative); Clarity Extra Turbid (Clear); Glucose, Urine (Dipstick) Normal (Negative); Ketone, Urine Negative (Negative); Leukocyte 500 Leu/uL (Negative); Nitrite 1+ (Negative); Protein, Urine (Dipstick) 300 mg/dL (Neg-Trace); RBC/HPF Greater than 50 HPF (0-3); Specific Gravity, Urine 1.024 (1.002-1.036); Squamous Epithelial None Seen HPF (0-3); Urobilinogen Normal mg/dL (Less than 2); WBC/HPF Greater than 50 HPF (0-3); pH, Urine 7.5 (5.0-9.0)
[2021-05-25] MEDS ORDERED: Guaifenesin DM 100-10/5 ML UDCUP PO PRN (22:42)
[2021-05-25] MEDS ORDERED: Bisacodyl 5 MG TAB PO PRN (22:42)
[2021-05-25] MEDS ORDERED: Senokot S 8.6-50 MG TAB PO PRN (22:42)
[2021-05-25] MEDS ORDERED: HYDROcodone/Acetaminophen 5/325 mg Tablet PO PRN (22:42)
[2021-05-25] MEDS ORDERED: Heparin 5,000 UNITS/ML VIAL SC SCH (23:00)
[2021-05-25] MEDS ORDERED: Famotidine 20 MG TAB PO SCH (23:00)
[2021-05-25 23:07] LABS: SARS-CoV-2 NAA Rapid Test DETECTED (NotDetected)
[2021-05-25] MEDS ORDERED: Cholecalciferol (Vitamin D3) 400 UNITS TAB PO SCH (23:45)
[2021-05-25] MEDS ORDERED: Zinc Sulfate 220 MG CAP PO SCH (23:45)
[2021-05-25] MEDS ORDERED: Dexamethasone 10 MG/ML VIAL SLOW IVP SCH (23:45)
[2021-05-25] MEDS ORDERED: Albuterol Sulfate 1.25 MG/3 ML NEB INH PRN (23:45)
[2021-05-25] MEDS ORDERED: Ascorbic Acid 500 mg Chewable Tablet PO SCH (23:45)
[2021-05-25] MEDS ORDERED: Enoxaparin Sodium 40 MG/0.4 ML SYRINGE SC SCH (23:45)
[2021-05-25] MEDS ORDERED: Pharmacy to Dose REMDESIVIR IVPB PRN (23:49)
[2021-05-26 01:39] VITALS: BMI 19.7
[2021-05-26] MEDS ORDERED: Nitroglycerin 0.4 MG TAB (25 Tab Bottle) SL PRN (01:56)
[2021-05-26] MEDS ORDERED: traZODone HCl 50 MG TAB PO PRN (02:03)
[2021-05-26] MEDS: Sodium Chloride 0.9% 1,000 ML IV SCH ×2 (02:26→17:59)
[2021-05-26] MEDS: Ondansetron PF 4 MG/2 ML Vial IVP PRN (06:21)
[2021-05-26 06:28] LABS: #Lymphocytes 0.8 thou/uL (1.20-3.40); #Monocytes 0.1 thou/uL (0.11-0.59); #Neutrophils 2.3 thou/uL (1.40-6.50); %Eosinophils 0.1 % (0.0-10.0); %Lymphocytes 25.8 % (21.0-51.0); %Monocytes 2.8 % (0.0-10.0); %Neutrophils 71.4 % (42.0-75.0); Mean Corpuscular HGB CONC 32.6 g/dL (32.0-36.0); Mean Corpuscular Hemoglobin 29.9 pg (27.0-31.0); Mean Corpuscular Volume 91.7 fL (78.0-98.0); Mean Platelet Volume 8.7 fL (7.4-10.4); Platelet Count 109 thou/uL (130-400); RBC Distribution Width 15.8 % (11.5-14.5); Red Blood Cell (RBC) Count 2.68 mill/uL (4.70-6.10); White Blood Cell (WBC) Count 3.2 thou/uL (4.8-10.8)
[2021-05-26 06:52] LABS: ALT (SGPT) 18 U/L (8-55); AST (SGOT) 30 U/L (5-34); Albumin 2.8 g/dL (3.4-4.8); Alkaline Phosphatase 47 U/L (40-110); Anion Gap 13 mmol/L (10-20); BUN (Urea Nitrogen) 24 mg/dL (8.4-25.7); Bilirubin, Total 0.3 mg/dL (0.2-1.2); Calc. Creatinine Clearance 44 mL/min (70-130); Carbon Dioxide 20 mmol/L (23-31); Chloride 108 mmol/L (98-107); Globulin 2.4 g/dL (2.4-3.5); Glucose 115 mg/dL (83-110); Potassium 3.8 mmol/L (3.5-5.1); Protein, Total 5.2 g/dL (5.8-8.1); Sodium 137 mmol/L (136-145)
[2021-05-26] MEDS: Carvedilol 6.25 MG TAB PO SCH ×2 (08:07→20:43)
[2021-05-26] MEDS: Ascorbic Acid 500 mg Chewable Tablet PO SCH (08:07)
[2021-05-26] MEDS: HYDROcodone/Acetaminophen 10/325 mg Tablet PO PRN ×3 (08:07→16:29)
[2021-05-26] MEDS: Cefepime 2 GM in Sodium Chloride 0.9% 100 ML IVPB SCH ×2 (08:08→20:44)
[2021-05-26] MEDS: Zinc Sulfate 220 MG CAP PO SCH (08:08)
[2021-05-26] MEDS: Cholecalciferol (Vitamin D3) 400 UNITS TAB PO SCH (08:08)
[2021-05-26] MEDS: Dexamethasone 10 MG/ML VIAL SLOW IVP SCH (08:08)
[2021-05-26] MEDS: Bicalutamide 50 MG TAB PO SCH (08:09)
[2021-05-26] MEDS: Oxybutynin 5 MG TAB PO SCH ×2 (08:09→23:11)
[2021-05-26] MEDS: Acetaminophen 325 MG TAB PO PRN (08:45)
[2021-05-26] MEDS ORDERED: PSYLLIUM HUSK 0.4 GM PO SCH (09:00)
[2021-05-26] MEDS ORDERED: Clopidogrel Bisulfate 75 MG TAB PO SCH (09:00)
[2021-05-26] MEDS ORDERED: Heparin 5,000 UNITS/ML VIAL SC SCH (09:00)
[2021-05-26] MEDS: Atorvastatin Calcium 40 MG TAB PO SCH (20:43)
[2021-05-26] MEDS: Enoxaparin Sodium 40 MG/0.4 ML SYRINGE SC SCH (20:44)
[2021-05-26] MEDS: Vancomycin 1 GM in Premix Bag 1 BAG IVPB SCH (22:00)
[2021-05-26] MEDS: Famotidine 20 MG TAB PO SCH (23:11)
[2021-05-27 05:41] LABS: #Lymphocytes 0.6 thou/uL (1.20-3.40); #Monocytes 0.2 thou/uL (0.11-0.59); #Neutrophils 2.1 thou/uL (1.40-6.50); %Basophils 0.2 % (0.0-1.0); %Eosinophils 0.1 % (0.0-10.0); %Lymphocytes 21.1 % (21.0-51.0); %Monocytes 7.3 % (0.0-10.0); %Neutrophils 71.3 % (42.0-75.0); Hemoglobin 7.7 g/dL (14.0-18.0); Mean Corpuscular HGB CONC 33.4 g/dL (32.0-36.0); Mean Corpuscular Hemoglobin 30.6 pg (27.0-31.0); Mean Corpuscular Volume 91.7 fL (78.0-98.0); Mean Platelet Volume 9.2 fL (7.4-10.4); Platelet Count 106 thou/uL (130-400); RBC Distribution Width 15.7 % (11.5-14.5); Red Blood Cell (RBC) Count 2.52 mill/uL (4.70-6.10); White Blood Cell (WBC) Count 2.9 thou/uL (4.8-10.8)
[2021-05-27 06:06] LABS: Anion Gap 14 mmol/L (10-20); BUN (Urea Nitrogen) 27 mg/dL (8.4-25.7); Calc. Creatinine Clearance 43 mL/min (70-130); Calcium 8.1 mg/dL (7.8-10.44); Carbon Dioxide 19 mmol/L (23-31); Chloride 111 mmol/L (98-107); Glucose 134 mg/dL (83-110); Potassium 4.5 mmol/L (3.5-5.1); Sodium 139 mmol/L (136-145)
[2021-05-27] MEDS: Oxybutynin 5 MG TAB PO SCH ×2 (07:47→21:36)
[2021-05-27] MEDS: Zinc Sulfate 220 MG CAP PO SCH (07:47)
[2021-05-27] MEDS: Megestrol Acetate 40 MG TAB PO SCH (07:47)
[2021-05-27] MEDS: Cholecalciferol (Vitamin D3) 400 UNITS TAB PO SCH (07:47)
[2021-05-27] MEDS: Ascorbic Acid 500 mg Chewable Tablet PO SCH (07:47)
[2021-05-27] MEDS: Dexamethasone 10 MG/ML VIAL SLOW IVP SCH (07:47)
[2021-05-27] MEDS: Cefepime 2 GM in Sodium Chloride 0.9% 100 ML IVPB SCH ×2 (07:48→21:36)
[2021-05-27] MEDS: Carvedilol 6.25 MG TAB PO SCH ×2 (07:48→21:36)
[2021-05-27] MEDS: Bicalutamide 50 MG TAB PO SCH (08:37)
[2021-05-27] MEDS: Sodium Chloride 0.9% 1,000 ML IV SCH (18:44)
[2021-05-27] MEDS ORDERED: Lidocaine 4% Topical Sol 50 ML BOT TOP PRN (20:09)
[2021-05-27] MEDS: Enoxaparin Sodium 40 MG/0.4 ML SYRINGE SC SCH (21:36)
[2021-05-27] MEDS: Famotidine 20 MG TAB PO SCH (21:36)
[2021-05-27] MEDS: Atorvastatin Calcium 40 MG TAB PO SCH (21:36)
[2021-05-27 22:33] LABS: Vancomycin, Trough 12.3 ug/mL
[2021-05-27] MEDS: Vancomycin 1 GM in Premix Bag 1 BAG IVPB SCH (22:35)
[2021-05-28 06:03] LABS: #Lymphocytes 0.7 thou/uL (1.20-3.40); #Monocytes 0.4 thou/uL (0.11-0.59); #Neutrophils 4.3 thou/uL (1.40-6.50); %Eosinophils 0.1 % (0.0-10.0); %Lymphocytes 12.2 % (21.0-51.0); %Monocytes 6.6 % (0.0-10.0); %Neutrophils 81.1 % (42.0-75.0); Hemoglobin 7.7 g/dL (14.0-18.0); Mean Corpuscular HGB CONC 34.3 g/dL (32.0-36.0); Mean Corpuscular Hemoglobin 31.2 pg (27.0-31.0); Mean Platelet Volume 9.6 fL (7.4-10.4); Platelet Count 114 thou/uL (130-400); RBC Distribution Width 15.7 % (11.5-14.5); Red Blood Cell (RBC) Count 2.47 mill/uL (4.70-6.10); White Blood Cell (WBC) Count 5.3 thou/uL (4.8-10.8)
[2021-05-28] MEDS ORDERED: ALPRAZolam 0.25 MG TAB PO SCH (06:15)
[2021-05-28] MEDS: Megestrol Acetate 40 MG TAB PO SCH (08:39)
[2021-05-28] MEDS: Bicalutamide 50 MG TAB PO SCH (08:39)
[2021-05-28] MEDS: Zinc Sulfate 220 MG CAP PO SCH (08:39)
[2021-05-28] MEDS: Ascorbic Acid 500 mg Chewable Tablet PO SCH (08:39)
[2021-05-28] MEDS: Cefepime 2 GM in Sodium Chloride 0.9% 100 ML IVPB SCH ×2 (08:39→21:07)
[2021-05-28] MEDS: Oxybutynin 5 MG TAB PO SCH ×2 (08:39→21:08)
[2021-05-28] MEDS: Carvedilol 6.25 MG TAB PO SCH ×2 (08:39→21:07)
[2021-05-28] MEDS: Dexamethasone 10 MG/ML VIAL SLOW IVP SCH (08:39)
[2021-05-28] MEDS: Cholecalciferol (Vitamin D3) 400 UNITS TAB PO SCH (08:40)
[2021-05-28] MEDS: HYDROcodone/Acetaminophen 10/325 mg Tablet PO PRN (14:57)
[2021-05-28] MEDS: Sodium Chloride 0.9% 1,000 ML IV SCH (15:05)
[2021-05-28] MEDS: Atorvastatin Calcium 40 MG TAB PO SCH (21:07)
[2021-05-28] MEDS: Famotidine 20 MG TAB PO SCH (21:07)
[2021-05-28] MEDS: Enoxaparin Sodium 40 MG/0.4 ML SYRINGE SC SCH (21:07)
[2021-05-28] MEDS: Vancomycin 1 GM in Premix Bag 1 BAG IVPB SCH (22:10)
[2021-05-29] MEDS: Sodium Chloride 0.9% 1,000 ML IV SCH (05:18)
[2021-05-29] MEDS: Cholecalciferol (Vitamin D3) 400 UNITS TAB PO SCH (08:58)
[2021-05-29] MEDS: Oxybutynin 5 MG TAB PO SCH ×2 (08:58→21:39)
[2021-05-29] MEDS: Ascorbic Acid 500 mg Chewable Tablet PO SCH (08:58)
[2021-05-29] MEDS: Zinc Sulfate 220 MG CAP PO SCH (08:58)
[2021-05-29] MEDS: Carvedilol 6.25 MG TAB PO SCH ×2 (08:58→21:38)
[2021-05-29] MEDS: Megestrol Acetate 40 MG TAB PO SCH (08:58)
[2021-05-29] MEDS: Cefepime 2 GM in Sodium Chloride 0.9% 100 ML IVPB SCH ×2 (08:59→21:37)
[2021-05-29] MEDS: Dexamethasone 10 MG/ML VIAL SLOW IVP SCH (08:59)
[2021-05-29] MEDS ORDERED: FLU VACC QS2021-22(65YR UP)/PF 240 MCG/0.7 ML SYRINGE IM ONE (09:00)
[2021-05-29] MEDS: Bicalutamide 50 MG TAB PO SCH (09:02)
[2021-05-29 09:21] LABS: #Lymphocytes 0.9 thou/uL (1.20-3.40); #Monocytes 0.6 thou/uL (0.11-0.59); #Neutrophils 4.2 thou/uL (1.40-6.50); %Basophils 0.2 % (0.0-1.0); %Lymphocytes 16.3 % (21.0-51.0); %Monocytes 10.3 % (0.0-10.0); %Neutrophils 73.2 % (42.0-75.0); Hemoglobin 7.6 g/dL (14.0-18.0); Mean Corpuscular HGB CONC 32.8 g/dL (32.0-36.0); Mean Corpuscular Hemoglobin 29.8 pg (27.0-31.0); Mean Platelet Volume 10.1 fL (7.4-10.4); Platelet Count 108 thou/uL (130-400); RBC Distribution Width 15.7 % (11.5-14.5); Red Blood Cell (RBC) Count 2.54 mill/uL (4.70-6.10); White Blood Cell (WBC) Count 5.7 thou/uL (4.8-10.8)
[2021-05-29 09:40] LABS: Anion Gap 11 mmol/L (10-20); BUN (Urea Nitrogen) 34 mg/dL (8.4-25.7); Calc. Creatinine Clearance 46 mL/min (70-130); Calcium 8.6 mg/dL (7.8-10.44); Carbon Dioxide 18 mmol/L (23-31); Chloride 115 mmol/L (98-107); Glucose 125 mg/dL (83-110); Potassium 4.3 mmol/L (3.5-5.1); Sodium 140 mmol/L (136-145)
[2021-05-29] MEDS: Ondansetron PF 4 MG/2 ML Vial IVP PRN (10:07)
[2021-05-29] MEDS: Atorvastatin Calcium 40 MG TAB PO SCH (21:38)
[2021-05-29] MEDS: Famotidine 20 MG TAB PO SCH (21:38)
[2021-05-29] MEDS: Enoxaparin Sodium 40 MG/0.4 ML SYRINGE SC SCH (21:38)
[2021-05-29] MEDS ORDERED: ALPRAZolam 0.25 MG TAB PO SCH (23:45)
[2021-05-29 23:53] LABS: Vancomycin, Trough 11.3 ug/mL
[2021-05-30] MEDS: Sodium Chloride 0.9% 1,000 ML IV SCH ×2 (02:12→21:20)
[2021-05-30] MEDS: VANCOMYCIN 1.25 GM/250 ML BAG 1.25 GM in Premix Bag 1 BAG IVPB SCH (02:12)
[2021-05-30] MEDS ORDERED: ALPRAZolam 0.25 MG TAB PO SCH (09:00)
[2021-05-30] MEDS: Bicalutamide 50 MG TAB PO SCH ×2 (09:10→10:22)
[2021-05-30] MEDS: Zinc Sulfate 220 MG CAP PO SCH ×2 (09:10→10:22)
[2021-05-30] MEDS: Megestrol Acetate 40 MG TAB PO SCH ×2 (09:10→10:22)
[2021-05-30] MEDS: Oxybutynin 5 MG TAB PO SCH ×3 (09:10→22:10)
[2021-05-30] MEDS: Carvedilol 6.25 MG TAB PO SCH ×3 (09:10→21:25)
[2021-05-30] MEDS: Ascorbic Acid 500 mg Chewable Tablet PO SCH ×2 (09:10→10:23)
[2021-05-30] MEDS: Dexamethasone 10 MG/ML VIAL SLOW IVP SCH ×2 (09:10→10:22)
[2021-05-30] MEDS: Cholecalciferol (Vitamin D3) 400 UNITS TAB PO SCH ×2 (09:10→10:21)
[2021-05-30] MEDS: Cefepime 2 GM in Sodium Chloride 0.9% 100 ML IVPB SCH (09:11)
[2021-05-30] MEDS: ALPRAZolam 0.25 MG TAB PO SCH ×3 (09:15→21:00)
[2021-05-30] MEDS ORDERED: Dexamethasone 4 MG TAB PO SCH (11:30)
[2021-05-30 14:50] LABS: Platelet Count 90 thou/uL (130-400)
[2021-05-30] MEDS: Atorvastatin Calcium 40 MG TAB PO SCH (21:35)
[2021-05-30] MEDS: Enoxaparin Sodium 40 MG/0.4 ML SYRINGE SC SCH (22:10)
[2021-05-30] MEDS: Famotidine 20 MG TAB PO SCH (22:34)
[2021-05-31] MEDS: VANCOMYCIN 1.25 GM/250 ML BAG 1.25 GM in Premix Bag 1 BAG IVPB SCH (02:35)
[2021-05-31] MEDS ORDERED: Dexamethasone 4 MG TAB PO SCH (08:00)
[2021-05-31] MEDS: Megestrol Acetate 40 MG TAB PO SCH (09:02)
[2021-05-31] MEDS: Carvedilol 6.25 MG TAB PO SCH ×2 (09:02→21:23)
[2021-05-31] MEDS: Zinc Sulfate 220 MG CAP PO SCH (09:02)
[2021-05-31] MEDS: Cholecalciferol (Vitamin D3) 400 UNITS TAB PO SCH (09:02)
[2021-05-31] MEDS: Ascorbic Acid 500 mg Chewable Tablet PO SCH (09:02)
[2021-05-31] MEDS: Oxybutynin 5 MG TAB PO SCH ×2 (09:03→21:23)
[2021-05-31] MEDS: Bicalutamide 50 MG TAB PO SCH (09:03)
[2021-05-31] MEDS: ALPRAZolam 0.25 MG TAB PO SCH (13:16)
[2021-05-31] MEDS: Sodium Chloride 0.9% 1,000 ML IV SCH (18:33)
[2021-05-31] MEDS: Famotidine 20 MG TAB PO SCH (21:23)
[2021-05-31] MEDS: Enoxaparin Sodium 40 MG/0.4 ML SYRINGE SC SCH (21:23)
[2021-05-31] MEDS: Atorvastatin Calcium 40 MG TAB PO SCH (21:23)
[2021-06-01] MEDS: ALPRAZolam 0.25 MG TAB PO SCH ×3 (00:42→22:06)
[2021-06-01] MEDS: Vancomycin HCl 1.25 GM in Sodium Chloride 0.9% 250 ML 250 ML IVPB SCH (00:43)
[2021-06-01] MEDS: Ascorbic Acid 500 mg Chewable Tablet PO SCH (09:38)
[2021-06-01] MEDS: Oxybutynin 5 MG TAB PO SCH ×2 (09:38→22:07)
[2021-06-01] MEDS: Cholecalciferol (Vitamin D3) 400 UNITS TAB PO SCH (09:38)
[2021-06-01] MEDS: Megestrol Acetate 40 MG TAB PO SCH (09:38)
[2021-06-01] MEDS: Zinc Sulfate 220 MG CAP PO SCH (09:38)
[2021-06-01] MEDS: Carvedilol 6.25 MG TAB PO SCH ×2 (09:40→22:06)
[2021-06-01] MEDS: Bicalutamide 50 MG TAB PO SCH (09:40)
[2021-06-01] MEDS: Sodium Chloride 0.9% 1,000 ML IV SCH (15:58)
[2021-06-01] MEDS: Ondansetron PF 4 MG/2 ML Vial IVP PRN (18:06)
[2021-06-01] MEDS: Enoxaparin Sodium 40 MG/0.4 ML SYRINGE SC SCH (22:07)
[2021-06-01] MEDS: Famotidine 20 MG TAB PO SCH (22:07)
[2021-06-01] MEDS: Atorvastatin Calcium 40 MG TAB PO SCH (22:07)
[2021-06-02] MEDS: Vancomycin HCl 1.25 GM in Sodium Chloride 0.9% 250 ML 250 ML IVPB SCH (01:30)
[2021-06-02] MEDS: Zinc Sulfate 220 MG CAP PO SCH (09:24)
[2021-06-02] MEDS: Oxybutynin 5 MG TAB PO SCH ×2 (09:24→20:35)
[2021-06-02] MEDS: Megestrol Acetate 40 MG TAB PO SCH (09:24)
[2021-06-02] MEDS: Cholecalciferol (Vitamin D3) 400 UNITS TAB PO SCH (09:24)
[2021-06-02] MEDS: Carvedilol 6.25 MG TAB PO SCH ×2 (09:24→20:35)
[2021-06-02] MEDS: Ascorbic Acid 500 mg Chewable Tablet PO SCH (09:24)
[2021-06-02] MEDS: Bicalutamide 50 MG TAB PO SCH (09:24)
[2021-06-02] MEDS: Saccharomyces boulardii 250 MG CAP PO SCH (09:26)
[2021-06-02 11:24] LABS: #Lymphocytes 0.9 thou/uL (1.20-3.40); #Monocytes 0.8 thou/uL (0.11-0.59); #Neutrophils 3.8 thou/uL (1.40-6.50); %Basophils 0.2 % (0.0-1.0); %Eosinophils 0.8 % (0.0-10.0); %Lymphocytes 15.9 % (21.0-51.0); %Monocytes 13.8 % (0.0-10.0); %Neutrophils 69.3 % (42.0-75.0); Hemoglobin 8.1 g/dL (14.0-18.0); Mean Corpuscular HGB CONC 33.7 g/dL (32.0-36.0); Mean Corpuscular Volume 91.9 fL (78.0-98.0); Mean Platelet Volume 9.9 fL (7.4-10.4); Platelet Count 100 thou/uL (130-400); Red Blood Cell (RBC) Count 2.62 mill/uL (4.70-6.10); White Blood Cell (WBC) Count 5.4 thou/uL (4.8-10.8)
[2021-06-02 11:46] LABS: Anion Gap 9 mmol/L (10-20); BUN (Urea Nitrogen) 29 mg/dL (8.4-25.7); Calc. Creatinine Clearance 50 mL/min (70-130); Calcium 8.5 mg/dL (7.8-10.44); Carbon Dioxide 21 mmol/L (23-31); Chloride 109 mmol/L (98-107); Glucose 118 mg/dL (83-110); Potassium 4.1 mmol/L (3.5-5.1); Sodium 135 mmol/L (136-145)
[2021-06-02] MEDS: Sodium Chloride 0.9% 1,000 ML IV SCH (16:27)
[2021-06-02] MEDS: ALPRAZolam 0.25 MG TAB PO SCH ×2 (19:02→20:35)
[2021-06-02] MEDS: Atorvastatin Calcium 40 MG TAB PO SCH (20:35)
[2021-06-02] MEDS: Famotidine 20 MG TAB PO SCH (20:36)
[2021-06-02] MEDS: Enoxaparin Sodium 40 MG/0.4 ML SYRINGE SC SCH (20:36)
[2021-06-03] MEDS: Vancomycin HCl 1.25 GM in Sodium Chloride 0.9% 250 ML 250 ML IVPB SCH (00:34)
[2021-06-03] MEDS: Megestrol Acetate 40 MG TAB PO SCH (09:39)
[2021-06-03] MEDS: Cholecalciferol (Vitamin D3) 400 UNITS TAB PO SCH (09:39)
[2021-06-03] MEDS: Oxybutynin 5 MG TAB PO SCH ×2 (09:40→20:05)
[2021-06-03] MEDS: ALPRAZolam 0.25 MG TAB PO SCH ×2 (09:40→20:04)
[2021-06-03] MEDS: Ascorbic Acid 500 mg Chewable Tablet PO SCH (09:40)
[2021-06-03] MEDS: Zinc Sulfate 220 MG CAP PO SCH (09:40)
[2021-06-03] MEDS: Saccharomyces boulardii 250 MG CAP PO SCH (09:40)
[2021-06-03] MEDS: Carvedilol 6.25 MG TAB PO SCH ×2 (09:41→20:05)
[2021-06-03] MEDS: Bicalutamide 50 MG TAB PO SCH (09:48)
[2021-06-03] MEDS: Sodium Chloride 0.9% 1,000 ML IV SCH (10:37)
[2021-06-03] MEDS: Atorvastatin Calcium 40 MG TAB PO SCH (20:05)
[2021-06-03] MEDS: Famotidine 20 MG TAB PO SCH (20:05)
[2021-06-03] MEDS: Enoxaparin Sodium 40 MG/0.4 ML SYRINGE SC SCH (20:05)
[2021-06-03] MEDS: Acetaminophen 325 MG TAB PO PRN (21:55)
[2021-06-04] MEDS: Vancomycin HCl 1.25 GM in Sodium Chloride 0.9% 250 ML 250 ML IVPB SCH (00:42)
[2021-06-04] MEDS: Sodium Chloride 0.9% 1,000 ML IV SCH ×2 (02:45→14:15)
[2021-06-04] MEDS: Ascorbic Acid 500 mg Chewable Tablet PO SCH (08:57)
[2021-06-04] MEDS: Saccharomyces boulardii 250 MG CAP PO SCH (08:57)
[2021-06-04] MEDS: Bicalutamide 50 MG TAB PO SCH (08:57)
[2021-06-04] MEDS: Cholecalciferol (Vitamin D3) 400 UNITS TAB PO SCH (08:57)
[2021-06-04] MEDS: Zinc Sulfate 220 MG CAP PO SCH (08:57)
[2021-06-04] MEDS: Carvedilol 6.25 MG TAB PO SCH ×2 (08:57→20:57)
[2021-06-04] MEDS: Oxybutynin 5 MG TAB PO SCH ×2 (08:57→20:57)
[2021-06-04] MEDS: Megestrol Acetate 40 MG TAB PO SCH (08:58)
[2021-06-04] MEDS: ALPRAZolam 0.25 MG TAB PO SCH ×2 (08:58→20:56)
[2021-06-04] MEDS: Enoxaparin Sodium 40 MG/0.4 ML SYRINGE SC SCH (20:57)
[2021-06-04] MEDS: Famotidine 20 MG TAB PO SCH (20:57)
[2021-06-04] MEDS: Atorvastatin Calcium 40 MG TAB PO SCH (20:57)
[2021-06-05] MEDS ORDERED: VANCOMYCIN 1.25 GM/250 ML BAG 1.25 GM in Premix Bag 1 BAG IVPB SCH (01:00)
[2021-06-05] MEDS: Sodium Chloride 0.9% 1,000 ML IV SCH (06:00)
[2021-06-05] MEDS: Acetaminophen 325 MG TAB PO PRN (06:30)
[2021-06-05] MEDS: Ascorbic Acid 500 mg Chewable Tablet PO SCH (08:09)
[2021-06-05] MEDS: Saccharomyces boulardii 250 MG CAP PO SCH (08:09)
[2021-06-05] MEDS: ALPRAZolam 0.25 MG TAB PO SCH (08:09)
[2021-06-05] MEDS: Megestrol Acetate 40 MG TAB PO SCH (08:10)
[2021-06-05] MEDS: Zinc Sulfate 220 MG CAP PO SCH (08:10)
[2021-06-05] MEDS: Carvedilol 6.25 MG TAB PO SCH (08:10)
[2021-06-05] MEDS: Oxybutynin 5 MG TAB PO SCH (08:10)
[2021-06-05] MEDS: Cholecalciferol (Vitamin D3) 400 UNITS TAB PO SCH (08:10)
[2021-06-05] MEDS: Bicalutamide 50 MG TAB PO SCH (08:12)
[2021-06-05 08:56] LABS: #Eosinphils 0.1 thou/uL (0.0-0.7); #Lymphocytes 0.9 thou/uL (1.20-3.40); #Monocytes 0.6 thou/uL (0.11-0.59); #Neutrophils 3.6 thou/uL (1.40-6.50); %Lymphocytes 16.4 % (21.0-51.0); %Monocytes 12.4 % (0.0-10.0); %Neutrophils 70.2 % (42.0-75.0); Hemoglobin 7.6 g/dL (14.0-18.0); Mean Corpuscular HGB CONC 32.9 g/dL (32.0-36.0); Mean Corpuscular Hemoglobin 30.5 pg (27.0-31.0); Mean Corpuscular Volume 92.8 fL (78.0-98.0); Mean Platelet Volume 9.6 fL (7.4-10.4); Platelet Count 124 thou/uL (130-400); RBC Distribution Width 16.9 % (11.5-14.5); Red Blood Cell (RBC) Count 2.49 mill/uL (4.70-6.10); White Blood Cell (WBC) Count 5.2 thou/uL (4.8-10.8)
[2021-06-05 09:16] LABS: Anion Gap 11 mmol/L (10-20); BUN (Urea Nitrogen) 15 mg/dL (8.4-25.7); Calc. Creatinine Clearance 56 mL/min (70-130); Calcium 8.7 mg/dL (7.8-10.44); Carbon Dioxide 20 mmol/L (23-31); Chloride 113 mmol/L (98-107); Glucose 93 mg/dL (83-110); Potassium 4.1 mmol/L (3.5-5.1); Sodium 140 mmol/L (136-145)
[2021-06-05 11:30] VITALS: TEMP 98.7
[2021-06-05 14:51] VITALS: BP 113/66
== END 2021-06-05 17:14 | disposition home or self-care (01) | DRG 177 ==
LOC: ERS 18:15 → T4-A 23:12
PROVIDERS: ADMIT Internal Medicine; ATTEND Internal Medicine
PROC: 8E0ZXY6 Isolation (ICD-10-PCS; principal; 2021-05-25)
DX: U07.1 COVID-19 (principal); G93.41 Metabolic encephalopathy; J80 Acute respiratory distress syndrome; J12.82 Pneumonia due to coronavirus disease 2019; T83.518A Infection and inflammatory reaction due to other urinary catheter, initial encounter; N30.01 Acute cystitis with hematuria; N17.9 Acute kidney failure, unspecified; E44.0 Moderate protein-calorie malnutrition; Z68.1 Body mass index [BMI] 19.9 or less, adult; I10 Essential (primary) hypertension; B19.20 Unspecified viral hepatitis C without hepatic coma; Y84.6 Urinary catheterization as the cause of abnormal reaction of the patient, or of later complication, without mention of misadventure at the time of the procedure; E78.5 Hyperlipidemia, unspecified; I25.10 Atherosclerotic heart disease of native coronary artery without angina pectoris; Z88.2 Allergy status to sulfonamides; F41.9 Anxiety disorder, unspecified; B95.62 Methicillin resistant Staphylococcus aureus infection as the cause of diseases classified elsewhere; C61 Malignant neoplasm of prostate; E78.00 Pure hypercholesterolemia, unspecified; K21.9 Gastro-esophageal reflux disease without esophagitis; Z79.82 Long term (current) use of aspirin; Z95.5 Presence of coronary angioplasty implant and graft; Z79.899 Other long term (current) drug therapy; I25.2 Old myocardial infarction
CPT/HCPCS: 36415; 70450; 71045; 80048; 80053; 80202; 81003; 81015; 83605; 85014; 85018; 85025; 85049; 87040; 87077; 87086; 87186; 93005; 96365; 96367; J0692; J1100; J1642; J1650; J1956; J2405; J3370; J3490; J7050; J8540; S0179; U0002

== ENCOUNTER 2021-09-16 13:50 | Outpatient (CLI) | payer MEDICARE ==
[2021-09-16 15:01] LABS: Hemoglobin 10.5 g/dL (13.5-17.5); Mean Corpuscular HGB CONC 30.9 g/dL (32.0-36.0); Mean Corpuscular Hemoglobin 27.4 pg (27.0-33.0); Mean Corpuscular Volume 88.8 fl (81.2-95.1); Mean Platelet Volume 10.9 fl (7.4-10.4); Platelet Count 157 10x3/uL (150-450); RBC Distribution Width 14.5 % (11.5-14.5); Red Blood Cell (RBC) Count 3.83 10x6/uL (4.32-5.72); White Blood Cell (WBC) Count 6.1 10x3/uL (3.5-10.5)
[2021-09-16 15:13] LABS: PTT 27.1 sec (22.0-33.0)
[2021-09-16 15:24] LABS: Anion Gap 14 mmol/L (10-20); BUN (Urea Nitrogen) 15 mg/dL (8.4-25.7); Calc. Creatinine Clearance 0 mL/min (70-130); Calcium 8.9 mg/dL (7.8-10.44); Carbon Dioxide 21 mmol/L (23-31); Chloride 104 mmol/L (98-107); Glucose 116 mg/dL (83-110); Potassium 4.7 mmol/L (3.5-5.1); Sodium 134 mmol/L (136-145)
[2021-09-17 00:04] LABS: SARS-CoV-2 PCR by NAA Not Detected (NotDetected)
== END 2021-09-16 13:51 | disposition home or self-care (01) ==
LOC: LABBT 13:50
PROVIDERS: ATTEND Urology
DX: Z01.818 Encounter for other preprocedural examination (principal); N39.41 Urge incontinence; N13.30 Unspecified hydronephrosis; Z20.822 Contact with and (suspected) exposure to COVID-19
CPT/HCPCS: 80048; 85027; 85610; 85730; 93005; U0003; U0005; 93010

== ENCOUNTER 2021-09-19 09:09 | Day surgery (SDC) | payer MEDICARE ==
[2021-09-16 11:10] VITALS: BMI 19.9
[2021-09-19] MEDS ORDERED: Bupivacaine 0.25% HCL 30 ML VIAL ONE (12:17)
[2021-09-19] MEDS ORDERED: Iothalamate Meglumine 60% 50 ML VIAL FS ONE (12:17)
[2021-09-19] MEDS ORDERED: EPINEPHrine 1 MG/ML AMP ONE (12:17)
[2021-09-19] MEDS ORDERED: Fentanyl 250 MCG/5 ML VIAL ONE ×2 (12:18→13:44)
[2021-09-19] MEDS ORDERED: Lidocaine 1% PF 5 ML VIAL ONE (12:49)
[2021-09-19] MEDS ORDERED: Ondansetron PF 4 MG/2 ML Vial ONE (12:49)
[2021-09-19] MEDS ORDERED: PROPOFOL 200 MG/20 ML VIAL ONE (12:49)
[2021-09-19] MEDS ORDERED: Dexamethasone 20 MG/5 ML VIAL ONE (12:49)
[2021-09-19] MEDS ORDERED: Oxybutynin 5 MG TAB ONE (14:16)
[2021-09-19] MEDS ORDERED: Ketorolac Tromethamine 30 MG/ML VIAL ONE (14:23)
[2021-09-19] MEDS ORDERED: HYDROcodone/Acetaminophen 5/325 mg Tablet ONE (14:48)
== END 2021-09-19 15:43 | disposition home or self-care (01) ==
LOC: SDC 09:09
PROVIDERS: ATTEND Urology
PROC: 0T768DZ Dilation of Right Ureter with Intraluminal Device, Via Natural or Artificial Opening Endoscopic (ICD-10-PCS; principal; 2021-09-19)
PROC: 0TP98DZ Removal of Intraluminal Device from Ureter, Via Natural or Artificial Opening Endoscopic (ICD-10-PCS; 2021-09-19)
PROC: 0T9B30Z Drainage of Bladder with Drainage Device, Percutaneous Approach (ICD-10-PCS; 2021-09-19)
DX: N13.30 Unspecified hydronephrosis (principal); N39.41 Urge incontinence; E78.00 Pure hypercholesterolemia, unspecified; I11.9 Hypertensive heart disease without heart failure; I25.2 Old myocardial infarction; Z79.02 Long term (current) use of antithrombotics/antiplatelets; Z79.899 Other long term (current) drug therapy; Z88.2 Allergy status to sulfonamides; Z85.46 Personal history of malignant neoplasm of prostate
CPT/HCPCS: 51102; 52332; 74420; C2617; Q9961; J0171; J1100; J1885; J2405; J2704; J3010; S0020

== ENCOUNTER 2022-02-05 00:15 | Emergency (ER) | payer MEDICARE ==
[2022-02-05 02:35] LABS: #Basophils 0.1 thou/uL (0.0-0.2); #Eosinphils 0.4 thou/uL (0.0-0.7); #Lymphocytes 1.7 thou/uL (1.20-3.40); #Monocytes 0.4 thou/uL (0.11-0.59); #Neutrophils 2.3 thou/uL (1.40-6.50); %Basophils 1.4 % (0.0-1.0); %Eosinophils 8.9 % (0.0-10.0); %Lymphocytes 33.8 % (21.0-51.0); %Monocytes 8.9 % (0.0-10.0); Hemoglobin 10.3 g/dL (14.0-18.0); Mean Corpuscular HGB CONC 31.7 g/dL (32.0-36.0); Mean Corpuscular Hemoglobin 28.9 pg (27.0-31.0); Mean Corpuscular Volume 91.3 fL (78.0-98.0); Mean Platelet Volume 8.4 fL (7.4-10.4); Platelet Count 139 thou/uL (130-400); Red Blood Cell (RBC) Count 3.57 mill/uL (4.70-6.10); White Blood Cell (WBC) Count 4.9 thou/uL (4.8-10.8)
[2022-02-05 02:52] LABS: ALT (SGPT) 9 U/L (8-55); AST (SGOT) 16 U/L (5-34); Albumin 3.8 g/dL (3.4-4.8); Alkaline Phosphatase 55 U/L (40-110); BUN (Urea Nitrogen) 23 mg/dL (8.4-25.7); Bilirubin, Total 0.4 mg/dL (0.2-1.2); Calc. Creatinine Clearance 0 mL/min (70-130); Calcium 9.1 mg/dL (7.8-10.44); Carbon Dioxide 25 mmol/L (23-31); Estimated GFR 49; Globulin 3.3 g/dL (2.4-3.5); Glucose 113 mg/dL (83-110); Lipase 11 U/L (8-78); Protein, Total 7.1 g/dL (5.8-8.1)
[2022-02-05 03:02] LABS: Anion Gap 14 mmol/L (10-20); Chloride 105 mmol/L (98-107); Potassium 3.9 mmol/L (3.5-5.1); Sodium 137 mmol/L (136-145)
[2022-02-05] MEDS ORDERED: Ketorolac Tromethamine 30 MG/ML VIAL ONE (03:30)
[2022-02-05 04:37] LABS: Bilirubin Negative (Negative); Blood, Urine Trace (Negative); Clarity Turbid (Clear); Glucose, Urine (Dipstick) Normal (Negative); Ketone, Urine Negative (Negative); Leukocyte 500 Leu/uL (Negative); Nitrite 2+ (Negative); Protein, Urine (Dipstick) 100 mg/dL (Neg-Trace); Specific Gravity, Urine 1.015 (1.002-1.036); Squamous Epithelial None Seen HPF (0-3); Urobilinogen Normal mg/dL (Less than 2); WBC/HPF Greater than 50 HPF (0-3)
[2022-02-05 04:39] LABS: Bacteria/HPF 1+ HPF (None Seen)
[2022-02-05] MEDS ORDERED: HYDROcodone/Acetaminophen 5/325 mg Tablet ONE (05:15)
[2022-02-05] MEDS ORDERED: cefTRIAXone\\ROCEPHIN 1 GM VIAL ONE (05:16)
== END 2022-02-05 05:30 | disposition home or self-care (01) ==
LOC: ERS 00:15
DX: N39.0 Urinary tract infection, site not specified (principal); I10 Essential (primary) hypertension; I25.2 Old myocardial infarction; Z79.899 Other long term (current) drug therapy
CPT/HCPCS: 36415; 80053; 81003; 81015; 83690; 85025; 87086; 96372; 99283; J0696; J1885

== ENCOUNTER 2022-02-06 00:33 | Emergency (ER) | payer MEDICARE ==
[2022-02-06 01:20] LABS: #Eosinphils 0.5 thou/uL (0.0-0.7); #Monocytes 0.4 thou/uL (0.11-0.59); #Neutrophils 2.1 thou/uL (1.40-6.50); %Basophils 0.6 % (0.0-1.0); %Eosinophils 9.7 % (0.0-10.0); %Lymphocytes 40.5 % (21.0-51.0); %Neutrophils 41.3 % (42.0-75.0); Hemoglobin 11.1 g/dL (14.0-18.0); Mean Corpuscular HGB CONC 32.4 g/dL (32.0-36.0); Mean Corpuscular Hemoglobin 29.1 pg (27.0-31.0); Mean Corpuscular Volume 89.8 fL (78.0-98.0); Mean Platelet Volume 8.9 fL (7.4-10.4); Platelet Count 134 thou/uL (130-400); RBC Distribution Width 15.2 % (11.5-14.5); Red Blood Cell (RBC) Count 3.82 mill/uL (4.70-6.10)
[2022-02-06 01:37] LABS: ALT (SGPT) 12 U/L (8-55); AST (SGOT) 24 U/L (5-34); Albumin 3.8 g/dL (3.4-4.8); Alkaline Phosphatase 51 U/L (40-110); Anion Gap 15 mmol/L (10-20); BUN (Urea Nitrogen) 19 mg/dL (8.4-25.7); Bilirubin, Total 0.3 mg/dL (0.2-1.2); Calc. Creatinine Clearance 0 mL/min (70-130); Calcium 9.2 mg/dL (7.8-10.44); Carbon Dioxide 20 mmol/L (23-31); Chloride 106 mmol/L (98-107); Estimated GFR 48; Globulin 3.3 g/dL (2.4-3.5); Glucose 101 mg/dL (83-110); Lipase 9 U/L (8-78); Potassium 4.4 mmol/L (3.5-5.1); Protein, Total 7.1 g/dL (5.8-8.1); Sodium 137 mmol/L (136-145)
[2022-02-06] MEDS ORDERED: Morphine 4 MG/ML VIAL ONE (03:04)
[2022-02-06] MEDS ORDERED: Ondansetron PF 4 MG/2 ML Vial ONE (03:04)
[2022-02-06] MEDS ORDERED: Ketorolac Tromethamine 30 MG/ML VIAL ONE (04:09)
[2022-02-06] MEDS ORDERED: ISOVUE-370 76%-LOCM 1 ML ONE (08:12)
== END 2022-02-06 04:18 | disposition home or self-care (01) ==
LOC: ERS 00:33
DX: N39.0 Urinary tract infection, site not specified (principal); R10.9 Unspecified abdominal pain; I10 Essential (primary) hypertension; I25.2 Old myocardial infarction; Z79.899 Other long term (current) drug therapy
CPT/HCPCS: 36415; 74177; 80053; 81003; 81015; 83605; 83690; 85025; 87086; 93005; 96372; 96374; 96375; 99283; J0696; J1885; J2270; J2405; Q9966

== ENCOUNTER 2022-02-27 16:38 | Outpatient (CLI) | payer MEDICARE | END 2022-02-27 16:39 | disposition home or self-care (01) | LOC: LABBT 16:38 | PROVIDERS: ATTEND Urology | DX: Z01.818 Encounter for other preprocedural examination (principal); Z20.822 Contact with and (suspected) exposure to COVID-19 | CPT/HCPCS: 87811; 93005; 93010 ==

== ENCOUNTER 2022-03-03 06:14 | Inpatient (IN) | payer MEDICARE ==
[2022-03-03] MEDS ORDERED: Cefepime 2 GM VIAL ONE (06:33)
[2022-03-03 07:04] LABS: #Eosinphils 0.2 thou/uL (0.0-0.7); #Monocytes 0.3 thou/uL (0.11-0.59); #Neutrophils 4.8 thou/uL (1.40-6.50); %Basophils 0.1 % (0.0-1.0); %Eosinophils 3.7 % (0.0-10.0); %Monocytes 3.9 % (0.0-10.0); %Neutrophils 76.3 % (42.0-75.0); Mean Corpuscular HGB CONC 32.1 g/dL (32.0-36.0); Mean Corpuscular Hemoglobin 28.4 pg (27.0-31.0); Mean Corpuscular Volume 88.4 fL (78.0-98.0); Mean Platelet Volume 8.1 fL (7.4-10.4); Platelet Count 182 thou/uL (130-400); RBC Distribution Width 14.1 % (11.5-14.5); Red Blood Cell (RBC) Count 3.88 mill/uL (4.70-6.10); White Blood Cell (WBC) Count 6.3 thou/uL (4.8-10.8)
[2022-03-03 07:05] LABS: ALT (SGPT) 11 U/L (8-55); AST (SGOT) 21 U/L (5-34); Albumin 3.9 g/dL (3.4-4.8); Alkaline Phosphatase 61 U/L (40-110); Anion Gap 13 mmol/L (10-20); BUN (Urea Nitrogen) 30 mg/dL (8.4-25.7); Bilirubin, Total 0.7 mg/dL (0.2-1.2); Calc. Creatinine Clearance 0 mL/min (70-130); Calcium 10.1 mg/dL (7.8-10.44); Carbon Dioxide 28 mmol/L (23-31); Chloride 100 mmol/L (98-107); Estimated GFR 42; Globulin 3.9 g/dL (2.4-3.5); Glucose 137 mg/dL (83-110); Potassium 4.9 mmol/L (3.5-5.1); Protein, Total 7.8 g/dL (5.8-8.1); Sodium 136 mmol/L (136-145)
[2022-03-03] MEDS ORDERED: Iopamidol-370 76% 500 ML 1 ML ONE (08:43)
[2022-03-03] MEDS ORDERED: Ondansetron PF 4 MG/2 ML Vial ONE ×2 (08:48→14:22)
[2022-03-03] MEDS ORDERED: Acetaminophen 325 MG TAB ONE (08:48)
[2022-03-03 08:52] LABS: Bacteria/HPF 1+ HPF (None Seen); Bilirubin Negative (Negative); Blood, Urine 1+ (Negative); Clarity Turbid (Clear); Glucose, Urine (Dipstick) Normal (Negative); Ketone, Urine Negative (Negative); Leukocyte 500 Leu/uL (Negative); Nitrite Negative (Negative); Protein, Urine (Dipstick) 30 mg/dL (Neg-Trace); Specific Gravity, Urine 1.017 (1.002-1.036); Squamous Epithelial None Seen HPF (0-3); Urobilinogen Normal mg/dL (Less than 2); WBC/HPF Greater than 50 HPF (0-3); pH, Urine 6.5 (5.0-9.0)
[2022-03-03 09:23] LABS: SARS-CoV-2 NAA Rapid Test Not Detected (NotDetected)
[2022-03-03] MEDS ORDERED: Vancomycin 1 GM/200 ML BAG ONE (11:09)
[2022-03-03] MEDS ORDERED: Fentanyl 100 MCG/2 ML VIAL ONE (11:09)
[2022-03-03 11:53] LABS: Prothrombin Time 13.7 sec (12.0-14.7)
[2022-03-03 11:54] LABS: PTT 31.4 sec (22.9-36.1)
[2022-03-03 13:41] VITALS: BMI 21.8
[2022-03-03] MEDS ORDERED: Ondansetron ODT 4 MG TAB SL PRN (14:15)
[2022-03-03] MEDS ORDERED: Ondansetron PF 4 MG/2 ML Vial IVP PRN (14:15)
[2022-03-03] MEDS ORDERED: Acetaminophen 325 MG TAB PO PRN (14:15)
[2022-03-03] MEDS ORDERED: Morphine 4 MG/ML VIAL SLOW IVP PRN (15:54)
[2022-03-03] MEDS ORDERED: Oxybutynin 5 MG TAB PO PRN (15:54)
[2022-03-03] MEDS ORDERED: Phenazopyridine HCl 97.5 MG TABLET PO PRN (15:54)
[2022-03-03] MEDS ORDERED: Morphine 4 MG/ML VIAL SLOW IVP SCH (16:45)
[2022-03-03] MEDS ORDERED: [UNRECOGNIZED DRUG - REMARK] FS PRN (17:28)
[2022-03-03] MEDS: Morphine 2 MG/ML VIAL SLOW IVP PRN (18:48)
[2022-03-03] MEDS ORDERED: Melatonin 3 MG TAB PO PRN (18:56)
[2022-03-03] MEDS ORDERED: traZODone HCl 50 MG TAB PO PRN (19:12)
[2022-03-03 19:26] LABS: Bilirubin Negative (Negative); Blood, Urine 3+ (Negative); Clarity Extra Turbid (Clear); Glucose, Urine (Dipstick) 70 mg/dL (Negative); Ketone, Urine Negative (Negative); Leukocyte 500 Leu/uL (Negative); Nitrite Negative (Negative); Protein, Urine (Dipstick) 600 mg/dL (Neg-Trace); RBC/HPF Greater than 50 HPF (0-3); Specific Gravity, Urine 1.018 (1.002-1.036); Squamous Epithelial None Seen HPF (0-3); Urobilinogen Normal mg/dL (Less than 2); WBC/HPF Greater than 50 HPF (0-3); pH, Urine 8.5 (5.0-9.0)
[2022-03-03 19:39] LABS: Bacteria/HPF 2+ HPF (None Seen)
[2022-03-03] MEDS ORDERED: Pantoprazole 40 MG VIAL IVP SCH (21:00)
[2022-03-03] MEDS: Sodium Chloride 0.9% 1,000 ML IV SCH (21:22)
[2022-03-03] MEDS: Morphine 4 MG/ML VIAL SLOW IVP PRN (21:25)
[2022-03-03] MEDS: Cefepime 1 GM in Sodium Chloride 0.9% 100 ML IVPB SCH (21:28)
[2022-03-03] MEDS: Atorvastatin Calcium 40 MG TAB PO SCH (21:34)
[2022-03-03] MEDS: Carvedilol 6.25 MG TAB PO SCH (21:34)
[2022-03-04] MEDS: Vancomycin 1 GM in Premix Bag 1 BAG IVPB SCH (06:27)
[2022-03-04 06:35] LABS: #Eosinphils 0.3 thou/uL (0.0-0.7); #Monocytes 0.4 thou/uL (0.11-0.59); #Neutrophils 4.7 thou/uL (1.40-6.50); %Eosinophils 5.3 % (0.0-10.0); %Lymphocytes 16.1 % (21.0-51.0); %Monocytes 6.6 % (0.0-10.0); Hemoglobin 8.3 g/dL (14.0-18.0); Mean Corpuscular HGB CONC 31.3 g/dL (32.0-36.0); Mean Corpuscular Hemoglobin 27.8 pg (27.0-31.0); Mean Corpuscular Volume 88.8 fL (78.0-98.0); Mean Platelet Volume 8.3 fL (7.4-10.4); Platelet Count 136 thou/uL (130-400); RBC Distribution Width 14.2 % (11.5-14.5); Red Blood Cell (RBC) Count 2.99 mill/uL (4.70-6.10); White Blood Cell (WBC) Count 6.5 thou/uL (4.8-10.8)
[2022-03-04] MEDS: Morphine 4 MG/ML VIAL SLOW IVP PRN ×4 (06:39→20:58)
[2022-03-04 06:55] LABS: ALT (SGPT) 8 U/L (8-55); AST (SGOT) 15 U/L (5-34); Alkaline Phosphatase 40 U/L (40-110); Anion Gap 12 mmol/L (10-20); BUN (Urea Nitrogen) 23 mg/dL (8.4-25.7); Bilirubin, Total 0.5 mg/dL (0.2-1.2); Calc. Creatinine Clearance 39 mL/min (70-130); Calcium 8.6 mg/dL (7.8-10.44); Carbon Dioxide 24 mmol/L (23-31); Chloride 105 mmol/L (98-107); Estimated GFR 51; Globulin 3.2 g/dL (2.4-3.5); Glucose 110 mg/dL (83-110); Potassium 4.2 mmol/L (3.5-5.1); Protein, Total 6.2 g/dL (5.8-8.1); Sodium 137 mmol/L (136-145)
[2022-03-04] MEDS: Cefepime 1 GM in Sodium Chloride 0.9% 100 ML IVPB SCH ×2 (07:58→21:01)
[2022-03-04] MEDS: Pantoprazole 40 MG VIAL IVP SCH (08:00)
[2022-03-04] MEDS: Carvedilol 6.25 MG TAB PO SCH ×2 (08:00→21:02)
[2022-03-04] MEDS: Sodium Chloride 0.9% 1,000 ML IV SCH (11:01)
[2022-03-04] MEDS: HYDROcodone/Acetaminophen 5/325 mg Tablet PO PRN ×2 (12:26→21:03)
[2022-03-04] MEDS: Atorvastatin Calcium 40 MG TAB PO SCH (21:02)
[2022-03-05] MEDS: HYDROcodone/Acetaminophen 5/325 mg Tablet PO PRN ×3 (03:00→21:03)
[2022-03-05] MEDS: Morphine 4 MG/ML VIAL SLOW IVP PRN ×2 (03:01→20:56)
[2022-03-05] MEDS: Sodium Chloride 0.9% 1,000 ML IV SCH ×2 (03:06→12:27)
[2022-03-05 04:49] LABS: Hemoglobin 8.4 g/dL (14.0-18.0); Mean Corpuscular HGB CONC 32.3 g/dL (32.0-36.0); Mean Corpuscular Hemoglobin 28.9 pg (27.0-31.0); Mean Corpuscular Volume 89.7 fL (78.0-98.0); Mean Platelet Volume 8.6 fL (7.4-10.4); Platelet Count 129 thou/uL (130-400); RBC Distribution Width 14.2 % (11.5-14.5); Red Blood Cell (RBC) Count 2.91 mill/uL (4.70-6.10); White Blood Cell (WBC) Count 4.8 thou/uL (4.8-10.8)
[2022-03-05 05:07] LABS: Anion Gap 11 mmol/L (10-20); BUN (Urea Nitrogen) 17 mg/dL (8.4-25.7); Calc. Creatinine Clearance 43 mL/min (70-130); Calcium 8.2 mg/dL (7.8-10.44); Carbon Dioxide 24 mmol/L (23-31); Chloride 107 mmol/L (98-107); Estimated GFR 58; Glucose 118 mg/dL (83-110); Sodium 138 mmol/L (136-145)
[2022-03-05] MEDS: Vancomycin 1 GM in Premix Bag 1 BAG IVPB SCH (06:22)
[2022-03-05] MEDS: Cefepime 1 GM in Sodium Chloride 0.9% 100 ML IVPB SCH ×2 (08:47→21:03)
[2022-03-05] MEDS: Morphine 2 MG/ML VIAL SLOW IVP PRN (08:47)
[2022-03-05] MEDS: Carvedilol 6.25 MG TAB PO SCH ×2 (08:49→21:02)
[2022-03-05] MEDS: Pantoprazole 40 MG VIAL IVP SCH (08:50)
[2022-03-05] MEDS: Senokot S 8.6-50 MG TAB PO PRN (12:41)
[2022-03-05] MEDS: Atorvastatin Calcium 40 MG TAB PO SCH (21:02)
[2022-03-06] MEDS: Sodium Chloride 0.9% 1,000 ML IV SCH ×2 (00:20→15:00)
[2022-03-06] MEDS ORDERED: VANCOMYCIN 1.25 GM/250 ML BAG 1.25 GM in Premix Bag 1 BAG IVPB SCH (06:00)
[2022-03-06] MEDS: Morphine 4 MG/ML VIAL SLOW IVP PRN ×2 (06:05→09:21)
[2022-03-06] MEDS: HYDROcodone/Acetaminophen 5/325 mg Tablet PO PRN ×4 (06:06→18:59)
[2022-03-06] MEDS: Senokot S 8.6-50 MG TAB PO PRN (06:25)
[2022-03-06] MEDS: Cefepime 1 GM in Sodium Chloride 0.9% 100 ML IVPB SCH (09:20)
[2022-03-06] MEDS: Carvedilol 6.25 MG TAB PO SCH ×2 (09:22→21:16)
[2022-03-06] MEDS: Doxycycline 100 MG CAP PO SCH (21:16)
[2022-03-06] MEDS: Atorvastatin Calcium 40 MG TAB PO SCH (21:17)
[2022-03-07] MEDS: HYDROcodone/Acetaminophen 5/325 mg Tablet PO PRN ×6 (00:22→23:38)
[2022-03-07] MEDS: Sodium Chloride 0.9% 1,000 ML IV SCH (03:30)
[2022-03-07] MEDS: Senokot S 8.6-50 MG TAB PO PRN ×2 (06:03→19:23)
[2022-03-07] MEDS: Doxycycline 100 MG CAP PO SCH ×2 (07:57→19:23)
[2022-03-07] MEDS: Carvedilol 6.25 MG TAB PO SCH ×2 (07:57→19:24)
[2022-03-07] MEDS ORDERED: Ondansetron ODT 8 MG TAB SL PRN (10:44)
[2022-03-07] MEDS: Morphine 4 MG/ML VIAL SLOW IVP PRN (16:18)
[2022-03-07] MEDS: Atorvastatin Calcium 40 MG TAB PO SCH (19:24)
[2022-03-07] MEDS: Morphine 2 MG/ML VIAL SLOW IVP PRN (21:01)
[2022-03-08] MEDS: HYDROcodone/Acetaminophen 5/325 mg Tablet PO PRN ×2 (04:06→12:59)
[2022-03-08] MEDS: Doxycycline 100 MG CAP PO SCH ×2 (09:20→21:36)
[2022-03-08] MEDS: Carvedilol 6.25 MG TAB PO SCH ×2 (09:21→21:36)
[2022-03-08] MEDS: Morphine 4 MG/ML VIAL SLOW IVP PRN (09:21)
[2022-03-08] MEDS: Atorvastatin Calcium 40 MG TAB PO SCH (21:36)
[2022-03-09] MEDS: Carvedilol 6.25 MG TAB PO SCH (09:04)
[2022-03-09] MEDS: Senokot S 8.6-50 MG TAB PO PRN (09:05)
[2022-03-09] MEDS: Doxycycline 100 MG CAP PO SCH (09:05)
[2022-03-09 11:31] VITALS: BP 125/72; TEMP 98.2
== END 2022-03-09 12:56 | disposition home health service (06) | DRG 872 ==
LOC: ERS 06:14 → 2NO 11:15 → MSONC 03-08 18:52
PROVIDERS: ADMIT Internal Medicine; ATTEND Internal Medicine
PROC: 0T9330Z Drainage of Right Kidney Pelvis with Drainage Device, Percutaneous Approach (ICD-10-PCS; principal; 2022-03-03)
PROC: 3E03329 Introduction of Other Anti-infective into Peripheral Vein, Percutaneous Approach (ICD-10-PCS; 2022-03-03)
DX: A41.01 Sepsis due to Methicillin susceptible Staphylococcus aureus (principal); N13.6 Pyonephrosis; C79.51 Secondary malignant neoplasm of bone; M84.58XA Pathological fracture in neoplastic disease, other specified site, initial encounter for fracture; E46 Unspecified protein-calorie malnutrition; C79.9 Secondary malignant neoplasm of unspecified site; Z20.822 Contact with and (suspected) exposure to COVID-19; E78.00 Pure hypercholesterolemia, unspecified; C61 Malignant neoplasm of prostate; F41.9 Anxiety disorder, unspecified; B18.2 Chronic viral hepatitis C; I25.10 Atherosclerotic heart disease of native coronary artery without angina pectoris; I12.9 Hypertensive chronic kidney disease with stage 1 through stage 4 chronic kidney disease, or unspecified chronic kidney disease; N18.9 Chronic kidney disease, unspecified; N31.9 Neuromuscular dysfunction of bladder, unspecified; K21.9 Gastro-esophageal reflux disease without esophagitis; K76.9 Liver disease, unspecified; K59.00 Constipation, unspecified; Z88.2 Allergy status to sulfonamides; I25.2 Old myocardial infarction; Z95.5 Presence of coronary angioplasty implant and graft; Z86.16 Personal history of COVID-19; Z68.21 Body mass index [BMI] 21.0-21.9, adult; Z79.899 Other long term (current) drug therapy; R59.0 Localized enlarged lymph nodes; R11.2 Nausea with vomiting, unspecified; R50.9 Fever, unspecified; E78.5 Hyperlipidemia, unspecified; N40.1 Benign prostatic hyperplasia with lower urinary tract symptoms; N39.41 Urge incontinence; R33.8 Other retention of urine; Z53.8 Procedure and treatment not carried out for other reasons; Z86.14 Personal history of Methicillin resistant Staphylococcus aureus infection
CPT/HCPCS: 36415; 50430; 50432; 71045; 74177; 80048; 80053; 80202; 81003; 81015; 83605; 84153; 85025; 85027; 85610; 85730; 87040; 87077; 87086; 93005; 96365; 96367; 96375; C1729; C9113; J0692; J2250; J2270; J2405; J3010; J3370; J3490; J7050; Q0162; Q9967

== ENCOUNTER → 2022-03-03 | Day surgery (SDC) | payer MEDICARE ==
[2022-02-27 12:17] VITALS: BMI 21.1
[~2022-03-03] MED LIST changes: +Fentanyl 100 MCG/2 ML VIAL ONE; -Iopamidol-370 76% 500 ML 1 ML ONE; +Midazolam HCl 2 mg/2 ml Vial ONE
== END | disposition home or self-care (01) ==
LOC: SDC 05:59
PROVIDERS: ATTEND Urology
DX: N13.30 Unspecified hydronephrosis (principal); C61 Malignant neoplasm of prostate; C79.9 Secondary malignant neoplasm of unspecified site; R59.0 Localized enlarged lymph nodes; R11.2 Nausea with vomiting, unspecified; R50.9 Fever, unspecified; I25.10 Atherosclerotic heart disease of native coronary artery without angina pectoris; E78.5 Hyperlipidemia, unspecified; I10 Essential (primary) hypertension; K21.9 Gastro-esophageal reflux disease without esophagitis; N40.1 Benign prostatic hyperplasia with lower urinary tract symptoms; N39.41 Urge incontinence; R33.8 Other retention of urine; Z53.8 Procedure and treatment not carried out for other reasons; Z86.14 Personal history of Methicillin resistant Staphylococcus aureus infection; Z79.899 Other long term (current) drug therapy; Z88.2 Allergy status to sulfonamides; Z95.5 Presence of coronary angioplasty implant and graft
CPT/HCPCS: J2250; J3010

== ENCOUNTER 2022-03-16 06:17 | Emergency (ER) | payer MEDICARE ==
[2022-03-16 08:42] LABS: #Eosinphils 0.1 thou/uL (0.0-0.7); #Monocytes 0.5 thou/uL (0.11-0.59); #Neutrophils 5.1 thou/uL (1.40-6.50); %Basophils 0.4 % (0.0-1.0); %Eosinophils 1.5 % (0.0-10.0); %Lymphocytes 14.2 % (21.0-51.0); %Monocytes 7.3 % (0.0-10.0); %Neutrophils 76.6 % (42.0-75.0); Hemoglobin 9.3 g/dL (14.0-18.0); Mean Corpuscular HGB CONC 32.5 g/dL (32.0-36.0); Mean Corpuscular Hemoglobin 28.3 pg (27.0-31.0); Mean Corpuscular Volume 87.3 fL (78.0-98.0); Mean Platelet Volume 8.1 fL (7.4-10.4); Platelet Count 226 thou/uL (130-400); RBC Distribution Width 14.6 % (11.5-14.5); Red Blood Cell (RBC) Count 3.28 mill/uL (4.70-6.10); White Blood Cell (WBC) Count 6.7 thou/uL (4.8-10.8)
[2022-03-16 09:00] LABS: ALT (SGPT) 9 U/L (8-55); AST (SGOT) 16 U/L (5-34); Albumin 3.6 g/dL (3.4-4.8); Alkaline Phosphatase 49 U/L (40-110); Anion Gap 15 mmol/L (10-20); BUN (Urea Nitrogen) 22 mg/dL (8.4-25.7); Bilirubin, Total 0.6 mg/dL (0.2-1.2); Calc. Creatinine Clearance 0 mL/min (70-130); Calcium 10.5 mg/dL (7.8-10.44); Carbon Dioxide 25 mmol/L (23-31); Chloride 105 mmol/L (98-107); Estimated GFR 48; Globulin 3.6 g/dL (2.4-3.5); Glucose 116 mg/dL (83-110); Potassium 4.5 mmol/L (3.5-5.1); Protein, Total 7.2 g/dL (5.8-8.1); Sodium 140 mmol/L (136-145)
[2022-03-16 10:11] LABS: Bacteria/HPF None Seen HPF (None Seen); Bilirubin Negative (Negative); Blood, Urine Negative (Negative); Clarity Clear (Clear); Glucose, Urine (Dipstick) Normal (Negative); Ketone, Urine Negative (Negative); Leukocyte 75 Leu/uL (Negative); Nitrite Negative (Negative); Protein, Urine (Dipstick) 30 mg/dL (Neg-Trace); RBC/HPF 0-3 HPF (0-3); Specific Gravity, Urine 1.019 (1.002-1.036); Squamous Epithelial None Seen HPF (0-3); Urobilinogen Normal mg/dL (Less than 2)
[2022-03-16] MEDS ORDERED: Iopamidol-370 76% 500 ML 1 ML ONE (15:49)
== END 2022-03-16 11:30 | disposition home or self-care (01) ==
LOC: ERS 06:17
DX: K59.00 Constipation, unspecified (principal); R03.0 Elevated blood-pressure reading, without diagnosis of hypertension; R73.9 Hyperglycemia, unspecified; D64.9 Anemia, unspecified; I10 Essential (primary) hypertension; I25.2 Old myocardial infarction; E78.00 Pure hypercholesterolemia, unspecified
CPT/HCPCS: 36415; 74177; 80053; 81003; 81015; 85025; 87086; Q9967

== ENCOUNTER 2022-03-28 08:48 | Emergency (ER) | payer MEDICARE ==
[2022-03-28 11:02] LABS: #Eosinphils 0.8 thou/uL (0.0-0.7); #Lymphocytes 1.7 thou/uL (1.20-3.40); #Monocytes 0.6 thou/uL (0.11-0.59); #Neutrophils 2.8 thou/uL (1.40-6.50); %Basophils 0.4 % (0.0-1.0); %Lymphocytes 29.1 % (21.0-51.0); %Monocytes 9.4 % (0.0-10.0); %Neutrophils 48.1 % (42.0-75.0); Hemoglobin 9.5 g/dL (14.0-18.0); Mean Corpuscular HGB CONC 31.8 g/dL (32.0-36.0); Mean Corpuscular Hemoglobin 28.2 pg (27.0-31.0); Mean Corpuscular Volume 88.7 fL (78.0-98.0); Mean Platelet Volume 7.9 fL (7.4-10.4); Platelet Count 187 thou/uL (130-400); RBC Distribution Width 14.4 % (11.5-14.5); Red Blood Cell (RBC) Count 3.38 mill/uL (4.70-6.10); White Blood Cell (WBC) Count 5.9 thou/uL (4.8-10.8)
== END 2022-03-28 11:31 | disposition home or self-care (01) ==
LOC: ERS 08:48
DX: N99.522 Malfunction of incontinent external stoma of urinary tract (principal); R31.9 Hematuria, unspecified; I10 Essential (primary) hypertension; E78.5 Hyperlipidemia, unspecified; Z79.899 Other long term (current) drug therapy
CPT/HCPCS: 36415; 85025; 99283

== ENCOUNTER 2022-05-30 07:29 | Inpatient (IN) | payer MEDICARE ==
[2022-05-30] MEDS ORDERED: Ondansetron PF 4 MG/2 ML Vial ONE (08:09)
[2022-05-30] MEDS ORDERED: Morphine 4 MG/ML VIAL ONE ×2 (08:09→10:26)
[2022-05-30 08:37] LABS: #Eosinphils 0.3 thou/uL (0.0-0.7); #Lymphocytes 1.3 thou/uL (1.20-3.40); #Monocytes 0.4 thou/uL (0.11-0.59); #Neutrophils 2.9 thou/uL (1.40-6.50); %Basophils 0.5 % (0.0-1.0); %Eosinophils 5.8 % (0.0-10.0); %Lymphocytes 25.9 % (21.0-51.0); %Monocytes 7.6 % (0.0-10.0); %Neutrophils 60.1 % (42.0-75.0); Hemoglobin 10.6 g/dL (14.0-18.0); Mean Corpuscular Hemoglobin 27.1 pg (27.0-31.0); Mean Corpuscular Volume 87.4 fL (78.0-98.0); Mean Platelet Volume 9.5 fL (7.4-10.4); Platelet Count 119 thou/uL (130-400); RBC Distribution Width 15.6 % (11.5-14.5); Red Blood Cell (RBC) Count 3.89 mill/uL (4.70-6.10); White Blood Cell (WBC) Count 4.8 thou/uL (4.8-10.8)
[2022-05-30 08:46] LABS: ALT (SGPT) Less than 7 U/L (8-55); AST (SGOT) 15 U/L (5-34); Albumin 3.5 g/dL (3.4-4.8); Alkaline Phosphatase 62 U/L (40-110); Anion Gap 14 mmol/L (10-20); BUN (Urea Nitrogen) 26 mg/dL (8.4-25.7); Bilirubin, Total 0.4 mg/dL (0.2-1.2); Calc. Creatinine Clearance 0 mL/min (70-130); Carbon Dioxide 21 mmol/L (23-31); Chloride 106 mmol/L (98-107); Estimated GFR 50; Glucose 114 mg/dL (83-110); Potassium 4.4 mmol/L (3.5-5.1); Protein, Total 7.5 g/dL (5.8-8.1); Sodium 137 mmol/L (136-145)
[2022-05-30 08:56] LABS: Bilirubin Negative (Negative); Blood, Urine Trace (Negative); Glucose, Urine (Dipstick) Negative (Negative); Ketone, Urine Negative (Negative); Leukocyte Small (Negative); Nitrite Positive (Negative); Protein, Urine (Dipstick) 100 mg/dL (Neg-Trace); Specific Gravity, Urine 1.025 (1.005-1.030); Urobilinogen 0.2 mg/dL (Less than 2)
[2022-05-30 08:58] LABS: Clarity Cloudy (Clear)
[2022-05-30 09:00] LABS: Bilirubin Negative (Negative); Blood, Urine Small (Negative); Glucose, Urine (Dipstick) 100 mg/dL (Negative); Ketone, Urine Negative (Negative); Leukocyte Large (Negative); Nitrite Negative (Negative); Protein, Urine (Dipstick) 100 mg/dL (Neg-Trace); Urobilinogen 0.2 mg/dL (Less than 2); pH, Urine 8.5 (5.0-9.0)
[2022-05-30 09:01] LABS: Clarity Hazy (Clear)
[2022-05-30 09:18] LABS: Bacteria/HPF 4+ HPF (None Seen); RBC/HPF 0-3 HPF (0-3); Squamous Epithelial 0-3 HPF (0-3)
[2022-05-30 09:22] LABS: Bacteria/HPF 1+ HPF (None Seen); RBC/HPF 0-3 HPF (0-3); Squamous Epithelial 0-3 HPF (0-3)
[2022-05-30] MEDS ORDERED: Cefepime 2 GM VIAL ONE (10:20)
[2022-05-30] MEDS ORDERED: cefTRIAXone\\ROCEPHIN 2 GM VIAL ONE (10:26)
[2022-05-30] MEDS ORDERED: Acetaminophen 325 MG TAB PO PRN (10:56)
[2022-05-30] MEDS ORDERED: Calcium Carbonate 500 MG ChewTAB PO PRN (10:56)
[2022-05-30] MEDS ORDERED: Ondansetron PF 4 MG/2 ML Vial IVP PRN (10:56)
[2022-05-30] MEDS ORDERED: Ondansetron ODT 4 MG TAB PO PRN (10:56)
[2022-05-30] MEDS ORDERED: Senokot S 8.6-50 MG TAB PO PRN (10:56)
[2022-05-30] MEDS ORDERED: Bisacodyl 5 MG TAB PO PRN (10:56)
[2022-05-30] MEDS ORDERED: Oxybutynin 5 MG TAB PO PRN (10:58)
[2022-05-30] MEDS ORDERED: HYDROcodone/Acetaminophen 5/325 mg Tablet PO PRN (10:58)
[2022-05-30] MEDS ORDERED: Iopamidol-370 76% 500 ML 1 ML ONE (12:02)
[2022-05-30] MEDS ORDERED: traZODone HCl 50 MG TAB PO PRN (12:12)
[2022-05-30] MEDS ORDERED: Vancomycin 1 GM in Premix Bag 1 BAG IVPB SCH (12:15)
[2022-05-30] MEDS ORDERED: Morphine 2 MG/ML VIAL SLOW IVP PRN (12:48)
[2022-05-30] MEDS: Sodium Chloride 0.9% 1,000 ML IV SCH ×2 (14:05→20:12)
[2022-05-30] MEDS ORDERED: Polyethylene Glycol 3350 17 GM Packet PO SCH (14:15)
[2022-05-30] MEDS: Carvedilol 6.25 MG TAB PO SCH (16:51)
[2022-05-30] MEDS: Morphine 4 MG/ML VIAL SLOW IVP PRN ×2 (17:01→23:05)
[2022-05-30] MEDS: Mirtazapine 30 MG TAB PO SCH (20:12)
[2022-05-30] MEDS: Atorvastatin Calcium 40 MG TAB PO SCH (20:12)
[2022-05-30] MEDS: Cefepime 1 GM in Sodium Chloride 0.9% 100 ML IVPB SCH (20:12)
[2022-05-31 07:46] LABS: #Eosinphils 0.4 thou/uL (0.0-0.7); #Lymphocytes 0.9 thou/uL (1.20-3.40); #Monocytes 0.4 thou/uL (0.11-0.59); #Neutrophils 2.8 thou/uL (1.40-6.50); %Basophils 0.5 % (0.0-1.0); %Eosinophils 8.1 % (0.0-10.0); %Lymphocytes 20.4 % (21.0-51.0); %Monocytes 9.2 % (0.0-10.0); %Neutrophils 61.8 % (42.0-75.0); Mean Corpuscular HGB CONC 31.1 g/dL (32.0-36.0); Mean Corpuscular Hemoglobin 27.2 pg (27.0-31.0); Mean Corpuscular Volume 87.4 fL (78.0-98.0); Mean Platelet Volume 8.4 fL (7.4-10.4); Platelet Count 171 thou/uL (130-400); RBC Distribution Width 15.4 % (11.5-14.5); White Blood Cell (WBC) Count 4.6 thou/uL (4.8-10.8)
[2022-05-31 08:04] LABS: ALT (SGPT) Less than 7 U/L (8-55); AST (SGOT) 12 U/L (5-34); Alkaline Phosphatase 55 U/L (40-110); Anion Gap 11 mmol/L (10-20); BUN (Urea Nitrogen) 16 mg/dL (8.4-25.7); Bilirubin, Total 0.3 mg/dL (0.2-1.2); Calc. Creatinine Clearance 42 mL/min (70-130); Calcium 8.1 mg/dL (7.8-10.44); Carbon Dioxide 20 mmol/L (23-31); Chloride 109 mmol/L (98-107); Estimated GFR 57; Globulin 3.4 g/dL (2.4-3.5); Glucose 108 mg/dL (83-110); Potassium 4.6 mmol/L (3.5-5.1); Protein, Total 6.4 g/dL (5.8-8.1); Sodium 135 mmol/L (136-145)
[2022-05-31] MEDS: Cefepime 1 GM in Sodium Chloride 0.9% 100 ML IVPB SCH ×2 (09:11→20:57)
[2022-05-31] MEDS: Polyethylene Glycol 3350 17 GM Packet PO SCH (09:11)
[2022-05-31] MEDS: Sodium Chloride 0.9% 1,000 ML IV SCH (09:11)
[2022-05-31] MEDS: Cyanocobalamin (Vitamin B-12) 1,000 MCG TAB PO SCH (09:12)
[2022-05-31] MEDS: Enoxaparin Sodium 40 MG/0.4 ML SYRINGE SC SCH (09:12)
[2022-05-31] MEDS: Dexamethasone 4 MG TAB PO SCH (09:13)
[2022-05-31] MEDS: Carvedilol 6.25 MG TAB PO SCH ×2 (09:13→17:28)
[2022-05-31] MEDS: Ascorbic Acid 500 mg Chewable Tablet PO SCH (09:13)
[2022-05-31] MEDS ORDERED: Vancomycin 1 GM in Premix Bag 1 BAG IVPB SCH (12:00)
[2022-05-31] MEDS ORDERED: Cefepime 1 GM in Sodium Chloride 0.9% 100 ML IVPB SCH (14:00)
[2022-05-31] MEDS: Morphine 4 MG/ML VIAL SLOW IVP PRN (15:03)
[2022-05-31] MEDS ORDERED: oxyCODONE 5 MG TAB PO PRN (17:05)
[2022-05-31] MEDS: Atorvastatin Calcium 40 MG TAB PO SCH (20:54)
[2022-05-31] MEDS: oxyCODONE 5 MG TAB PO SCH (20:55)
[2022-05-31] MEDS: Mirtazapine 30 MG TAB PO SCH (21:04)
[2022-06-01 06:56] LABS: #Eosinphils 0.3 thou/uL (0.0-0.7); #Lymphocytes 1.5 thou/uL (1.20-3.40); #Monocytes 0.4 thou/uL (0.11-0.59); #Neutrophils 3.6 thou/uL (1.40-6.50); %Basophils 0.5 % (0.0-1.0); %Lymphocytes 25.3 % (21.0-51.0); %Monocytes 7.1 % (0.0-10.0); %Neutrophils 62.1 % (42.0-75.0); Hemoglobin 8.7 g/dL (14.0-18.0); Mean Corpuscular HGB CONC 31.4 g/dL (32.0-36.0); Mean Corpuscular Hemoglobin 27.5 pg (27.0-31.0); Mean Corpuscular Volume 87.8 fL (78.0-98.0); Mean Platelet Volume 7.8 fL (7.4-10.4); Platelet Count 165 thou/uL (130-400); RBC Distribution Width 15.1 % (11.5-14.5); Red Blood Cell (RBC) Count 3.15 mill/uL (4.70-6.10); White Blood Cell (WBC) Count 5.8 thou/uL (4.8-10.8)
[2022-06-01 07:30] LABS: Anion Gap 11 mmol/L (10-20); BUN (Urea Nitrogen) 18 mg/dL (8.4-25.7); Calc. Creatinine Clearance 40 mL/min (70-130); Calcium 8.3 mg/dL (7.8-10.44); Carbon Dioxide 22 mmol/L (23-31); Chloride 110 mmol/L (98-107); Estimated GFR 54; Glucose 112 mg/dL (83-110); Magnesium 1.8 mg/dL (1.6-2.6); Potassium 4.5 mmol/L (3.5-5.1); Sodium 138 mmol/L (136-145)
[2022-06-01] MEDS: Carvedilol 6.25 MG TAB PO SCH ×2 (08:08→17:32)
[2022-06-01] MEDS: Cyanocobalamin (Vitamin B-12) 1,000 MCG TAB PO SCH (08:08)
[2022-06-01] MEDS: Senokot S 8.6-50 MG TAB PO SCH ×2 (08:09→21:41)
[2022-06-01] MEDS: oxyCODONE 5 MG TAB PO SCH ×2 (08:10→21:39)
[2022-06-01] MEDS: Cefepime 1 GM in Sodium Chloride 0.9% 100 ML IVPB SCH ×2 (08:12→21:41)
[2022-06-01] MEDS: Dexamethasone 4 MG TAB PO SCH (08:12)
[2022-06-01] MEDS: Enoxaparin Sodium 40 MG/0.4 ML SYRINGE SC SCH (08:12)
[2022-06-01] MEDS: Ascorbic Acid 500 mg Chewable Tablet PO SCH (08:12)
[2022-06-01] MEDS: Polyethylene Glycol 3350 17 GM Packet PO SCH (08:13)
[2022-06-01] MEDS: Lactated Ringer's 1,000 ML IV SCH (10:30)
[2022-06-01 11:50] LABS: Vancomycin, Trough 12.1 ug/mL
[2022-06-01 12:05] VITALS: BMI 22.2
[2022-06-01] MEDS: VANCOMYCIN 1.25 GM/250 ML BAG 1.25 GM in Premix Bag 1 BAG IVPB SCH (12:26)
[2022-06-01] MEDS: Atorvastatin Calcium 40 MG TAB PO SCH (21:39)
[2022-06-01] MEDS: Mirtazapine 30 MG TAB PO SCH (21:41)
[2022-06-02] MEDS: Lactated Ringer's 1,000 ML IV SCH (04:00)
[2022-06-02 07:11] LABS: #Eosinphils 0.3 thou/uL (0.0-0.7); #Lymphocytes 1.3 thou/uL (1.20-3.40); #Monocytes 0.5 thou/uL (0.11-0.59); #Neutrophils 3.2 thou/uL (1.40-6.50); %Basophils 0.4 % (0.0-1.0); %Eosinophils 6.5 % (0.0-10.0); %Lymphocytes 23.9 % (21.0-51.0); %Monocytes 8.5 % (0.0-10.0); %Neutrophils 60.7 % (42.0-75.0); Hemoglobin 8.4 g/dL (14.0-18.0); Mean Corpuscular HGB CONC 31.2 g/dL (32.0-36.0); Mean Corpuscular Hemoglobin 27.4 pg (27.0-31.0); Mean Corpuscular Volume 87.8 fl (78.0-98.0); Mean Platelet Volume 8.1 fL (7.4-10.4); Platelet Count 173 thou/uL (130-400); RBC Distribution Width 15.2 % (11.5-14.5); Red Blood Cell (RBC) Count 3.05 mill/uL (4.70-6.10); White Blood Cell (WBC) Count 5.3 thou/uL (4.8-10.8)
[2022-06-02 07:27] LABS: Anion Gap 8 mmol/L (10-20); BUN (Urea Nitrogen) 16 mg/dL (8.4-25.7); Calc. Creatinine Clearance 43 mL/min (70-130); Calcium 8.6 mg/dL (7.8-10.44); Carbon Dioxide 25 mmol/L (23-31); Chloride 108 mmol/L (98-107); Estimated GFR 58; Glucose 104 mg/dL (83-110); Magnesium 1.8 mg/dL (1.6-2.6); Potassium 4.4 mmol/L (3.5-5.1); Sodium 137 mmol/L (136-145)
[2022-06-02 08:40] VITALS: BP 138/80; TEMP 98.2
[2022-06-02] MEDS: Enoxaparin Sodium 40 MG/0.4 ML SYRINGE SC SCH (08:49)
[2022-06-02] MEDS: Polyethylene Glycol 3350 17 GM Packet PO SCH (08:50)
[2022-06-02] MEDS: Cefepime 1 GM in Sodium Chloride 0.9% 100 ML IVPB SCH (08:50)
[2022-06-02] MEDS: oxyCODONE 5 MG TAB PO SCH (08:50)
[2022-06-02] MEDS: Ascorbic Acid 500 mg Chewable Tablet PO SCH (08:52)
[2022-06-02] MEDS: Cyanocobalamin (Vitamin B-12) 1,000 MCG TAB PO SCH (08:53)
[2022-06-02] MEDS: Senokot S 8.6-50 MG TAB PO SCH (08:53)
[2022-06-02] MEDS: Carvedilol 6.25 MG TAB PO SCH (08:54)
[2022-06-02] MEDS: Dexamethasone 4 MG TAB PO SCH (08:54)
[2022-06-02] MEDS: VANCOMYCIN 1.25 GM/250 ML BAG 1.25 GM in Premix Bag 1 BAG IVPB SCH (11:43)
== END 2022-06-02 12:49 | disposition home health service (06) | DRG 948 ==
LOC: SUATTDRO 07:29 → ERS 07:29 → T4-A 11:48
PROVIDERS: ADMIT Internal Medicine; ATTEND Family Medicine
DX: G89.3 Neoplasm related pain (acute) (chronic) (principal); T83.511A Infection and inflammatory reaction due to indwelling urethral catheter, initial encounter; C78.00 Secondary malignant neoplasm of unspecified lung; C79.51 Secondary malignant neoplasm of bone; C79.19 Secondary malignant neoplasm of other urinary organs; C77.2 Secondary and unspecified malignant neoplasm of intra-abdominal lymph nodes; N13.30 Unspecified hydronephrosis; N39.0 Urinary tract infection, site not specified; C61 Malignant neoplasm of prostate; Z20.822 Contact with and (suspected) exposure to COVID-19; I12.9 Hypertensive chronic kidney disease with stage 1 through stage 4 chronic kidney disease, or unspecified chronic kidney disease; N18.30 Chronic kidney disease, stage 3 unspecified; K21.9 Gastro-esophageal reflux disease without esophagitis; K59.00 Constipation, unspecified; Z86.19 Personal history of other infectious and parasitic diseases; Z93.6 Other artificial openings of urinary tract status; Z66 Do not resuscitate; N40.0 Benign prostatic hyperplasia without lower urinary tract symptoms; Z98.890 Other specified postprocedural states; E78.00 Pure hypercholesterolemia, unspecified; I25.2 Old myocardial infarction; Z86.16 Personal history of COVID-19; Z92.3 Personal history of irradiation; Z82.49 Family history of ischemic heart disease and other diseases of the circulatory system; Z88.1 Allergy status to other antibiotic agents; Z88.2 Allergy status to sulfonamides; R63.0 Anorexia; Y84.6 Urinary catheterization as the cause of abnormal reaction of the patient, or of later complication, without mention of misadventure at the time of the procedure
CPT/HCPCS: 36415; 74177; 78306; 80048; 80053; 80202; 81003; 81015; 83605; 83735; 84153; 85025; 87040; 87086; 87149; 87186; 96365; 96375; 96376; A9503; J0692; J0696; J1650; J2270; J2405; J3370; J3490; J7050; J7120; J8540; Q9967; U0003; U0005

== ENCOUNTER 2022-07-21 07:02 | Day surgery (SDC) | payer MEDICARE ==
[2022-07-20 12:19] VITALS: BMI 20.3
[2022-07-21 07:36] VITALS: BP 117/60; TEMP 97.8
[2022-07-21] MEDS ORDERED: FLU VACC QS2022-23(65YR UP)/PF 240 MCG/0.7 ML SYRINGE IM ONE (07:45)
== END 2022-07-21 09:01 | disposition home or self-care (01) ==
LOC: SPEC 07:02
PROVIDERS: ATTEND Urology
PROC: 0T25X0Z Change Drainage Device in Kidney, External Approach (ICD-10-PCS; principal; 2022-07-21)
DX: Z46.6 Encounter for fitting and adjustment of urinary device (principal); C61 Malignant neoplasm of prostate; N13.5 Crossing vessel and stricture of ureter without hydronephrosis; C79.9 Secondary malignant neoplasm of unspecified site; Z79.2 Long term (current) use of antibiotics; Z79.899 Other long term (current) drug therapy; Z88.2 Allergy status to sulfonamides
CPT/HCPCS: 50435; C1729